=== PATIENT | female | born 1955 | race Caucasian/White ===

== ENCOUNTER → 2016-06-23 | Outpatient (CLI) | payer OTHER ==
[~2016-06-23] MED LIST: ALPR-411 PO; ASCO1CAP3 PO; ASPEC81 PO; ATOR-26 PO; CHOL1000 PO; CLOP1TAB15 PO; CLR10 PO; FLUT0.15 NAE; IMDSR30 PO; ISOS30TA3 PO; LPR25 PO; LPT40 PO; MULT-614 PO; NTRGSL/4 UT; OXYC1TAB3 PO; VITA400C15 PO; VITACAP37 PO
--- NOTE | 2016-06-23 15:36 | MAMMOGRAPHY REPORT ---
BILATERAL DIGITAL SCREENING MAMMOGRAM TOMOSYNTHESIS WITH CAD: 06/23/2016 CLINICAL HISTORY: Routine screening. Patient has no complaints. TECHNIQUE: Breast tomosynthesis in addition to standard 2D mammography was performed. Current study was also evaluated with a Computer Aided Detection (CAD) system. COMPARISON: Comparison is made to exams dated: 06/21/2015 mammogram, 05/14/2013 mammogram, 06/18/2014 mammogram, 04/17/2011 mammogram, and 04/13/2010 mammogram - [facility]. BREAST COMPOSITION: There are scattered areas of fibroglandular density in both breasts. FINDINGS: No suspicious masses, calcifications, or areas of architectural distortion are noted in e ither breast. There has been no significant interval change compared to prior exams. Small benign-a ppearing circumscribed mass in the right lower inner quadrant is stable compared to multiple prior e xams. Small mass with associated coarse calcifications in the left upper outer quadrant is also sta ble and is benign and compatible with a degenerating fibroadenoma. IMPRESSION: ACR BI-RADS CATEGORY 2: BENIGN There is no mammographic evidence of malignancy. A 1 year screening mammogram is recommended. The p atient will receive written notification of the results. Approximately 10% of breast cancers are not detected with mammography. A negative mammographic repor t should not delay biopsy if a clinically suggestive mass is present. Kate Lew M.D. ah/:06/23/2016 14:46:10 Crane Hoist Or Lift Operator: Beba BURLESON(R)(M), [facility] letter sent: Normal 1/2 BI-RADS Code: ACR BI-RADS Category 2: Benign
== END | disposition home or self-care (01) ==
LOC: C.MAMM 13:23
DX: Z12.31 Encounter for screening mammogram for malignant neoplasm of breast (principal)

== ENCOUNTER 2016-08-17 08:59 | Emergency (ER) | payer OTHER ==
[~2016-08-17] VITALS: Ht 152.4 cm; Wt 97.9 kg
[~2016-08-17 08:59] MED LIST changes: -ATOR-26 PO; -CLOP1TAB15 PO; -ISOS30TA3 PO; -NTRGSL/4 UT; -OXYC1TAB3 PO; -VITACAP37 PO
[2016-08-17 09:07] VITALS: TEMP 36.4; Ht 152.4 cm; Wt 97.9 kg
[2016-08-17] MEDS ORDERED: VITACAP37 PO (09:59)
[2016-08-17] MEDS ORDERED: ISOS30TA3 PO (10:00)
[2016-08-17] MEDS ORDERED: ATOR-26 PO (10:00)
[2016-08-17] MEDS ORDERED: CLOP1TAB15 PO (10:00)
[2016-08-17] MEDS ORDERED: NTRGSL/4 UT (10:00)
--- NOTE | 2016-08-17 10:29 | DIAGNOSTIC IMAGING REPORT ---
LEFT FOOT MIN 3 VIEWS ROUTINE CLINICAL HISTORY: Left foot pain status post trauma COMPARISON: None. DISCUSSION: There is a nondisplaced transverse fracture through the base the fifth metatarsal. Degenerative changes are present most pronounced the level the first metatarsal phalangeal joint. The bones are mildly osteopenic. There is a slight flat foot deformity. There is a small plantar calcaneal spur. IMPRESSION: Nondisplaced transverse fracture through the base the fifth metatarsal. Electronically signed by: Mele Enriquez M.D. 08/17/2016 10:27 AM Dictated Date/Time: 08/17/2016 10:27 AM
--- NOTE | 2016-08-17 10:30 | DIAGNOSTIC IMAGING REPORT ---
LEFT ANKLE 3 VIEWS HISTORY: Left foot/ ankle pain s/p fall COMPARISON: None. FINDINGS: There is no fracture or dislocation. Diffuse soft tissue swelling. Plantar and posterior calcaneal spurs. No radiopaque foreign bodies. IMPRESSION: No fractures. Electronically signed by: Quinten Vásquez M.D. 08/17/2016 10:29 AM Dictated Date/Time: 08/17/2016 10:27 AM
--- NOTE | 2016-08-17 13:01 | EMERGENCY ROOM VISIT NOTE ---
History First contact with patient: 09:16 Chief Complaint: FOOT PAIN Stated Complaint: LEFT FOOT PAIN History of Present Illness The patient is a 61 year old female who presents to the Emergency Room via private vehicle with complaints of "left foot pain". The patient states that around 10 PM yesterday evening she was at home, and was sitting in a position in which her left foot was underneath her, causing the foot to fall asleep and when she went to stand up and place weight on the foot it gave out, falling underneath her and she heard a loud crack. She states it hurts to walk and points to the left lateral aspect of the left foot is location of the pain that she rates as a 5/10. She denies any other injuries, striking her head, loss of consciousness. Review of Systems A complete 6-point Review of Systems was discussed with the patient, with pertinent positives and negatives listed in the History of Present Illness. All remaining Review of Systems questions can be considered negative unless otherwise specified. Past Medical/Surgical History Medical Problems: (1) Leg laceration (2) NSTEMI, initial episode of care Family History FH: CAD (coronary artery disease) Hypertension Social History Smoking Status: Never Smoker Drug Use: none Marital Status: Housing Status: lives with family Occupation Status: unemployed Current/Historical Medications Scheduled Ascorbic Acid (Vitamin C), 500 MG PO DAILYBB Aspirin (Aspirin EC Low Dose), 81 MG PO QAM Atorvastatin (Lipitor), 80 MG PO HS Cholecalciferol (Vitamin D3), 1,000 MG PO DAILY Clopidogrel (Plavix), 75 MG PO DAILY Isosorbide Mononitrate Ext Rel (Imdur Ext Rel), 15 MG PO QAM Metoprolol Tartrate (Lopressor), 25 MG PO BID Multiple Vitamins W/ Minerals (Centrum Silver Ultra Wome), 1 TAB PO DAILY Nitroglycerin (Nitrostat), 0.4 MG UT PRN Vitamin E (E-400), 1 TAB PO DAILY Scheduled PRN Alprazolam (Xanax), 0.5 MG PO DIRECTED PRN for Anxiety Fluticasone Propionate (Nasal) (Flonase Allergy Relief), 2 SPRAYS JB DIRECTED PRN for DRYNESS Allergies Coded Allergies: Penicillins (Verified Allergy, Intermediate, ITCHING, 08/17/16) Sulfamethoxazole w/Trimethoprim (Verified Adverse Reaction, Intermediate, GI SYMPTOMS, 08/17/16) Physical Exam Vital Signs Date Time Temp Pulse Resp B/P Pulse Ox O2 Delivery O2 Flow Rate FiO2 08/17/16 13:55 66 16 161/97 94 08/17/16 11:28 60 16 142/72 98 Room Air 08/17/16 09:07 36.4 69 18 175/95 99 Room Air Physical Exam VITAL SIGNS - Vital signs and nursing notes were reviewed. Patient is afebrile , she is hypertensive at 175/95, non-tachycardic and is saturating well on room air 99%. GENERAL -61-year-old female appearing her stated age who is in no acute distress. Communicates well with provider and answers questions appropriately. SKIN - Without rashes. No breaks in the integument over the foot. EXTREMITIES - No clubbing or peripheral cyanosis. No pretibial edema present. There is tenderness to palpation overlying the left lateral aspect of the left foot fifth metatarsal. Otherwise unremarkable examination of the left lower extremity. +5/5 strength noted in UE/LE bilaterally. She is neurovascularly intact in the left lower extremity. Medical Decision & Procedures ER Provider Diagnostic Interpretation: LEFT FOOT MIN 3 VIEWS ROUTINE CLINICAL HISTORY: Left foot pain status post trauma COMPARISON: None. DISCUSSION: There is a nondisplaced transverse fracture through the base the fifth metatarsal. Degenerative changes are present most pronounced the level the first metatarsal phalangeal joint. The bones are mildly osteopenic. There is a slight flat foot deformity. There is a small plantar calcaneal spur. IMPRESSION: Nondisplaced transverse fracture through the base the fifth metatarsal. Electronically signed by: Mele Enriquez M.D. 08/17/2016 10:27 AM Dictated Date/Time: 08/17/2016 10:27 AM LEFT ANKLE 3 VIEWS HISTORY: Left foot/ ankle pain s/p fall COMPARISON: None. FINDINGS: There is no fracture or dislocation. Diffuse soft tissue swelling. Plantar and posterior calcaneal spurs. No radiopaque foreign bodies. IMPRESSION: No fractures. Electronically signed by: Quinten Vásquez M.D. 08/17/2016 10:29 AM Dictated Date/Time: 08/17/2016 10:27 AM Medical Decision Patient was seen and evaluated as above. After obtaining a thorough history and physical examination was evident the patient may have fractured the left fifth metatarsal. Radiographs were obtained of this region as well as the ankle. She did not want anything for pain. She was provided ice. Radiograph reveals fracture of the eye feels concerning for a Gilmore type II. I did discuss this with my attending and I also placed a call to the on-call orthopedic surgeon. I spoke with Joe Goyalhilaria, who indicated that he would calm and back after discussing this with his attendings. I was called back and spoke with him at 12:45 PM, and he indicated that after speaking with some of the orthopedic surgeons it appears the patient is experiencing what is likely a dancer's fracture. He recommended a posterior Ortho-Glass in neutral position for splinting. He also encouraged the patient to call [place] [facility] office to schedule follow-up. I thanked him for the time. I do believe this is appropriate, therefore the patient was splinted with this. She was reassessed post splinting and noted to be feeling well. No evidence of restriction. The patient was educated upon management, and was initially given crutches however notes that she feels as though she may be unstable and has a walker at home that she may be used. I do believe this is appropriate. She was educated upon management, educated upon the need for follow-up with orthopedics, was provided the number to call, had questions answered prior to discharge, was educated upon worrisome symptoms in which to return and was discharged home in good condition. Because of the potential pain that she may be expressing this evening I did send a prescription to her pharmacy that she may fill if the pain becomes increased. In the evaluation and treatment of this patient, the following differential diagnoses were considered: Lisfranc Fracture, Talus Fracture, Tarsal Fracture, gilmore fracture, dancers fracture, Foot Sprain. Impression Primary Impression: Fracture of 5th metatarsal Departure Information Dispostion Home / Self-Care Condition GOOD Prescriptions Oxycodone Ir (Roxicodone Ir) 5 Mg Tab 1-2 TAB PO Q4H Y for Pain, #15 TAB For Initial Treatment Prov: Juan Luis Shelby PA-C 08/18/16 Referrals Maritza Garg.Ifrah PA-C (PCP) Yosef Roblero D.O. [place], [place], M.D. Patient Instructions [facility] Additional Instructions You have been treated in the Emergency Department for a foot fracture of the 5th metatarsal of the left foot. You have been prescribed Oxy IR to be used for pain control. This is a narcotic medication. You cannot drive or consume alcohol while on this medicine. This medicine should only be used for pain that cannot be controlled with over-the- counter pain medicines. For pain control, you can use the following [id number] medicines (if >12 yo): - Regular strength (325mg/tab) Tylenol (acetaminophen) 2 tabs every 4-6 hours as needed. Do not exceed 12 tablets in a 24 hour period. Avoid taking more than 4 grams (4000 mg) of Tylenol per day. This includes any other sources of acetaminophen you may take on a regular basis. - Regular strength (200 mg/tab) Advil (ibuprofen) 1-2 tabs every 4-6 hours as needed. Do not exceed a dose of 3200 mg per day. If this is a recent injury (<24 hrs), ice can be applied to the area of pain for the first 3 days to help decrease pain and inflammation. You have been provided the number for an Orthopaedic Surgeon. You should call this number as soon as possible to establish a follow-up visit from today's Emergency Department visit. Keep the ankle brace/splint in place until cleared by Orthopedics. Use the walker you have to keep ALL weight off of the ankle until weight bearing is tolerable. Return to the Emergency Department if your current symptoms worsen despite treatment course outlined above, or if you develop any of the following symptoms : intractable pain despite aforementioned treatment course or new onset of numbness or tingling of the foot. Problem Qualifiers Primary Impression: Fracture of 5th metatarsal Encounter type: initial encounter Fracture type: closed
[2016-08-17 13:55] VITALS: BP 161/97; PULSE 66; O2SAT 94
[2016-08-18] MEDS ORDERED: OXYC1TAB3 PO (09:23)
== END 2016-08-17 13:55 | disposition home or self-care (01) ==
LOC: C.EDB 09:00
DX: S92.355A Nondisplaced fracture of fifth metatarsal bone, left foot, initial encounter for closed fracture (principal); W18.30XA Fall on same level, unspecified, initial encounter; I25.2 Old myocardial infarction; Z82.49 Family history of ischemic heart disease and other diseases of the circulatory system; Z79.02 Long term (current) use of antithrombotics/antiplatelets; Z79.82 Long term (current) use of aspirin

== ENCOUNTER → 2016-10-04 | Outpatient (CLI) | payer OTHER ==
[~2016-10-04] MED LIST changes: +ATOR-26 PO; +CLOP1TAB15 PO; -CLR10 PO; -IMDSR30 PO; +ISOS30TA3 PO; -LPT40 PO; +NTRGSL/4 UT; +OXYC1TAB3 PO; -VITA400C15 PO; +VITACAP37 PO
[2016-10-04 14:06] LABS: ALB/GLOB RATIO 1.1 (0.9-2); ALKALINE PHOSPHATASE 93 U/L (45-117); ALT/SGPT 72 U/L (12-78); AST/SGOT 26 U/L (15-37); BLOOD UREA NITROGEN 14 mg/dl (7-18); BUN/CREATININE RATIO 17.5 (10-20); CALCIUM 9.2 mg/dl (8.5-10.1); CARBON DIOXIDE 31 mmol/L (21-32); CHLORIDE 108 mmol/L (98-107); CREATININE 0.83 mg/dl (0.60-1.20); GLUCOSE 99 mg/dl (70-99); HDL CHOLESTEROL 53 mg/dl; SODIUM 144 mmol/L (136-145)
[2016-10-04 14:09] LABS: CHOLESTEROL 132 mg/dl (0-200); CHOLESTEROL/HDL RATIO 2.5; LDL CHOLESTEROL CALCULATED 61 mg/dl; TRIGLYCERIDES 92 mg/dl (0-150); VERY LOW DENSITY LIPOPROT CALC 18 mg/dl
== END ==
LOC: C.LABPVFM 07:45
PROVIDERS: ATTEND Internal Medicine Cardiovascular Disease
DX: I25.10 Atherosclerotic heart disease of native coronary artery without angina pectoris (principal); E78.5 Hyperlipidemia, unspecified

== ENCOUNTER → 2017-06-25 | Outpatient (CLI) | payer OTHER ==
[~2017-06-25] MED LIST changes: -OXYC1TAB3 PO
--- NOTE | 2017-06-25 15:52 | MAMMOGRAPHY REPORT ---
BILATERAL DIGITAL SCREENING MAMMOGRAM TOMOSYNTHESIS WITH CAD: 06/25/2017 CLINICAL HISTORY: Routine screening. Patient has no complaints. TECHNIQUE: Breast tomosynthesis in addition to standard 2D mammography was performed. Current study was also evaluated with a Computer Aided Detection (CAD) system. COMPARISON: Comparison is made to exams dated: 06/23/2016 mammogram, 06/21/2015 mammogram, 06/18/2014 m ammogram, 05/14/2013 mammogram, 04/17/2011 mammogram, and 04/13/2010 mammogram - [facility]. BREAST COMPOSITION: There are scattered areas of fibroglandular density in both breasts. FINDINGS: No suspicious masses, calcifications, or areas of architectural distortion are noted in ei ther breast. There has been no significant interval change compared to prior exams. Circumscribed be nign-appearing mass in the right lower inner quadrant anteriorly is stable dating back to at least 2007 exam. IMPRESSION: ACR BI-RADS CATEGORY 2: BENIGN There is no mammographic evidence of malignancy. A 1 year screening mammogram is recommended. The pa tient will receive written notification of the results. Approximately 10% of breast cancers are not detected with mammography. A negative mammographic report should not delay biopsy if a clinically suggestive mass is present. Kate Lew M.D. /:06/25/2017 14:10:02 Clerical Adjuster: Mila Moreira, [facility] letter sent: Normal 1/2 BI-RADS Code: ACR BI-RADS Category 2: Benign
== END | disposition home or self-care (01) ==
LOC: C.MAMM 13:27
PROVIDERS: ATTEND Physician Assistant
DX: Z12.31 Encounter for screening mammogram for malignant neoplasm of breast (principal)

== ENCOUNTER → 2017-07-13 | Outpatient (CLI) | payer OTHER ==
[2017-07-13 12:43] LABS: HEMATOCRIT 41.8 % (37-47); HEMOGLOBIN 13.9 g/dL (12.0-16.0); MEAN CELL VOLUME 98.8 fL (80-100); MEAN CORPUSCULAR HEMOGLOBIN 32.9 pg (25-34); MEAN CORPUSCULAR HGB CONC 33.3 g/dl (32-36); MEAN PLATELET VOLUME 10.7 fL (7.4-10.4); PLATELET COUNT 245 K/uL (130-400); RED CELL DISTRIBUTION WIDTH CV 14.1 % (11.5-14.5); RED CELL DISTRIBUTION WIDTH SD 50.1 fL (36.4-46.3)
[2017-07-13 12:51] LABS: ALBUMIN 3.4 gm/dl (3.4-5.0); ALT/SGPT 73 U/L (12-78); AST/SGOT 36 U/L (15-37); BLOOD UREA NITROGEN 20 mg/dl (7-18); CALCIUM 8.7 mg/dl (8.5-10.1); CARBON DIOXIDE 30 mmol/L (21-32); CREATININE 0.89 mg/dl (0.60-1.20); GLUCOSE 98 mg/dl (70-99); POTASSIUM 3.9 mmol/L (3.5-5.1); SODIUM 140 mmol/L (136-145)
[2017-07-13 12:59] LABS: ALKALINE PHOSPHATASE 92 U/L (45-117); CHOLESTEROL 105 mg/dl (0-200); LDL CHOLESTEROL CALCULATED 43 mg/dl; TOTAL PROTEIN 6.8 gm/dl (6.4-8.2)
== END | disposition home or self-care (01) ==
LOC: C.LABPVFM 07:53
PROVIDERS: ATTEND Physician Assistant
DX: E78.5 Hyperlipidemia, unspecified (principal)

== ENCOUNTER → 2017-10-09 | Outpatient (CLI) | payer OTHER ==
[~2017-10-09] MED LIST changes: -ASPEC81 PO; +ASPI-320 PO
[2017-10-09 14:47] LABS: ALBUMIN 3.3 gm/dl (3.4-5.0); ALT/SGPT 66 U/L (12-78); AST/SGOT 33 U/L (15-37); BLOOD UREA NITROGEN 16 mg/dl (7-18); CALCIUM 8.4 mg/dl (8.5-10.1); CARBON DIOXIDE 30 mmol/L (21-32); CREATININE 0.81 mg/dl (0.60-1.20); GLUCOSE 97 mg/dl (70-99); POTASSIUM 4.1 mmol/L (3.5-5.1); SODIUM 142 mmol/L (136-145)
[2017-10-09 14:50] LABS: ALKALINE PHOSPHATASE 92 U/L (45-117); CHOLESTEROL 110 mg/dl (0-200); LDL CHOLESTEROL CALCULATED 46 mg/dl; TOTAL PROTEIN 6.9 gm/dl (6.4-8.2)
== END | disposition home or self-care (01) ==
LOC: C.LABPVFM 08:05
PROVIDERS: ATTEND Internal Medicine Cardiovascular Disease
DX: I25.10 Atherosclerotic heart disease of native coronary artery without angina pectoris (principal)

== ENCOUNTER 2023-08-04 11:02 | Inpatient (IN) ==
--- OUTSIDE RECORDS SUMMARY | 2023-08-04 11:15 | External Medical Summary | Summary of Care ---
Author Name Unknown Organization [facility] Address [address] [place] [address] Phone [phone] Care Team Providers Care Alemite Operator Name Role Phone Dioni Akers PA-C Primary Care Provide r Reason for Visit * Reason Comments Laceration LLE * Auth/Cert Specialty Diagnoses / Procedures Referred By Contac t Referred To Contact Referral ID Status Reason Start Date Expiration Date Visits Re quested Visits Authorized [id number] Encounter Details Date Type Department Care Team (Late st Contact Info) Description 07/20/2023 12:54 PM EST - 07/20/2023 3:32 PM EST Emergency [facility] Emergency Department ([facility]) [address], [place] [id number] Valentin Hernandez MD [address], [place] [id number] Fall, initial encounter (Primary Dx); Laceration of left lower extremity, initial encounter Discharge Disposition: Home - Self Care Allergies Active Allergy Reactions Criticality Noted Date Comments Sulfamethoxazole-Trimethoprim Nausea/vomiting Medium 0 10/23/2015 Penicillins Hives High 10/23/2015 documented as of this encounter (statuses as of 07/21/2023) Medications Medication Sig Dispensed Refills Start Date End Date Status Ascorbic Acid (VITAMIN C) 1000 MG Tablet Take 1 Tablet by mouth in the morning. 0 Active Cholecalciferol (VITAMIN D3) 1000 UNITS CAPS Take by mouth. 0 Active fluticasone (FLONASE) 50 MCG/ACT nasal sprayIndications:A llergic rhinitis, unspecified allergic rhinitis type Administer 2 Sprays into each nostril daily. 1 Bottle 11 10/23/2015 Active ALPRAZolam (XANAX) 0.5 MG Tablet Take 1 Tablet by mouth as needed. 0 12/31/2015 Active loratadine (CLARITIN) 10 MG Tablet Take 1 Tablet by mouth in the morning. 0 Active atorvaSTATin (LIPITOR) 80 MG Tablet Take 1 Tab by mouth every evening. 30 Tab 6 01/06/2016 Active Aspirin 81 MG TabletIndications: takes every other day. Take 1 Tab by mouth daily. Indications: takes every other day. 34 Tab 6 01/06/2016 Active Additional Information Patient taking differently:81 mg Oral Daily(AM),(No indications reported), Reported on 03/21/2023 nitroglycerin (NITROSTAT) 0.[address] 1 Tab under the tongue every 5 minutes as needed for Pain, Chest. Up to 3 in 15 minutes. 25 Tab 3 04/25/2018 Active furosemide (LASIX) 20 MG Tablet Take 1 Tablet by mouth as needed. 0 10/07/2018 Active famotidine (PEPCID) 20 MG Tablet Take 1 Tablet by mouth in the morning and 1 Tablet before bedtime. 0 04/18/2019 Active Zinc 50 MG Oral Tablet Take 1 Tablet by mouth in the morning. 0 Active One Daily 27-0.8 MG Oral Tablet Take by mouth. 0 Active Apple Cider Vinegar 500 MG Oral Tablet Take by mouth. 0 Active Metoprolol Succinate ER 50 MG Oral Tablet Extended Release 24 Hour (toPROL XL) Take 1 Tablet by mouth in the morning. 100 Tablet 5 03/21/2023 Active Cephalexin 500 MG Oral Capsule (Keflex) Take 1 Capsule by mouth in the morning and 1 Capsule at noon and 1 Capsule in the evening and 1 Capsule before bedtime. Do all this for 7 days. 28 Capsule 0 07/20/2023 07/27/2023 Active documented as of this encounter (statuses as of 07/21/2023) Active Problems Problem Noted Date Diagnosed Date Coronary artery disease invo lving [place] coronary artery of [place] heart without angina pectoris 01/06/2016 Dyslipidemia, goal LDL below 70 01/06/2016 Non morbid obesity due to excess calories 2015 documented as of this encounter (statuses as of 07/21/2023) Immunizations Name Administration Dates Next Due TDAP (age 10 and older)(Boostrix) 07/20/2023 documented as of this encounter Social History Tobacco Use Types Packs/Day Years Used Date Smoking Tobacco: Never Smokeless Tobacco: Never Alcohol Use Standard Drinks/Week Comments No 0 (1 standard drink = 0.6 oz pur e alcohol) Sex and Gender Information Value Date Recorded Sex Assigned at Not on file Gender Identity Not on file Sexual Orientation Not on file Job Start Date Occupation Industry Not on file Not on file Not on file documented as of this encounter Last Filed Vital Signs Vital Sign Reading Time Taken Comments Blood Pressure 154/109 07/20/2023 3:00 PM EST Pulse 82 07/20/2023 3:00 PM EST Temperature 37.1 C (98.8 F) 07/20/2023 3:00 PM ES T Respiratory Rate 20 07/20/2023 3:00 PM EST Oxygen Saturation 98% 07/20/2023 3:00 PM EST Inhaled Oxygen Concentration - - Weight - - Height - - Body Mass Index - - documented in this encounter Discharge Instructions * Discharge Instructions* Franco Tristan DO - 07/20/2023 2:58 PM EST You were seen and evaluated in the emergency department after your fall. Laceration was repaired inyou have been prescribed Keflex to be taken 4 times daily over the next week. Please continue to monitor your wound and Change your dressing daily. Please return to the emergency department for any redness, swelling or drainage and follow-up with your PCP in the next 7-10 days for removal of your sutures. documented in this encounter ED Notes * Pam Liu RN - 07/20/2023 1:06 PM EST Pt arrived with a large laceration on her LLE. Stated she was "getting up into the truck and missedthe running board". Having 7/10 pain. Bleeding controled. documented in this encounter Miscellaneous Notes * Pt Handout (on AVS) - Franco Tristan, - 07/20/2023 2:58 PM EST Images from the original note were not included. [id number] Laceration, All Closures A laceration is a cut through the skin. This will usually need stitches or marta if it's deep. Minor cuts may be treated with a surgical tape closure or skin glue. Home care Your healthcare provider may prescribe an antibiotic. This is to help prevent infection. Follow all instructions for taking this medicine. Take the medicine every day until it's gone, or you are told to stop. You should not have any left over. The provider may prescribe medicines for pain. If no pain medicines were prescribed, you can [id number] pain medicines. Follow instructions for taking any pain medicines. Talk with your provider before using these medicines if you have chronic liver or kidney disease, or ever had a stomach ulcer or digestive bleeding. Follow the provider?s instructions on how to care for the cut. Keep the wound clean and dry. Don't get the wound wet until you are told it's OK to do so. If the area gets wet, gently pat it dry with a clean cloth. Replace the wet bandage with a dry one. If a bandage was applied and it becomes wet or dirty, replace it. Otherwise, leave it in place for the first 24 hours. Caring for stitches or marta: Once you no longer need to keep them dry, clean the wound daily.First remove the bandage. Then wash the area gently with soap and clean running water, or as directed by the provider. Use a wet cotton swab to loosen and remove any blood or crust that forms. After cleaning, apply a thin layer of antibiotic ointment if advised. Then put on a new bandage unless youare told not to. Caring for skin glue: Don?t apply liquid, ointment, or cream on the wound while the glue is in place. Don't do activities that cause heavy sweating. Protect the wound from sunlight. Don't scratch,rub, or pick at the adhesive film. Don't place tape directly over the film. The glue should peel off naturally in 5 to 10 days. Caring for surgical tape: Keep the area dry. If it gets wet, blot it dry with a clean towel. Surgical tape often falls off in 7 to 10 days. If it has not fallen off after 10 days, you can take it off yourself. Put mineral oil or petroleum jelly on a cotton ball and gently rub the tape until it'sremoved. Once you can get the wound wet, you may shower as normal. Don't soak the wound in water (no tub baths or swimming). Even with correct treatment, a wound infection may sometimes occur. Check the wound daily for signs of infection listed below. Scalp wounds Follow your healthcare provider's specific instructions on showering. During the first 2 days, you may carefully rinse your hair in the shower to remove blood, glass, or dirt particles. After 2 days,you may shower and shampoo your hair normally. Don't soak your scalp in the tub or go swimming until the stitches or marta have been removed. Talk with your healthcare provider before applying any antibiotic ointment to the wound. Mouth wounds Eat soft foods to reduce pain. If the cut is inside your mouth, clean by rinsing after each meal and at bedtime with a mixture of equal parts water and hydrogen peroxide (don't swallow!). Or you can use a cotton swab to directly apply hydrogen peroxide onto the cut. You may also be prescribed a chlorhexidine solution to rinse with. Mouth wounds can be painful when eating. You may use an fhxr-lqb-uioedir local numbing solution for pain relief. If this isn't available, you may use any numbing solution intended for teething babies. You may apply this directly to the sores with a cotton-tip swab or with your clean finger. Follow-up care Follow up with your healthcare provider as advised. Ask your provider how long stitches should be left in place. Be sure to return for stitch removal as directed. If dissolving stitches were used in the mouth, these should fall out or dissolve without the need for removal. If tape closures were used, remove them yourself when your provider advises if they haven't fallen off on their own. If skin glue was used, the film will wear off by itself. Generally, you should keep healing wounds out of direct sunlight for the first couple of months to try to lessen scarring. When to get medical advice Call your healthcare provider right away if any of these occur: Signs of infection, including increasing pain in the wound, increasing wound redness or swelling, or pus or bad odor coming from the wound Fever of 100.4F (38.C) or higher, or as advised by your provider Chills Stitches or marta come apart or fall out, or surgical tape falls off before 7 days and the wound appears to be reopening Wound edges reopen Wound changes colors Numbness around the wound after any numbing medicine should have worn off Decreased movement around the injured area Call 911 Call 911 if you can't control the wound bleeding with direct pressure. Last Reviewed Date: 09/25/202119990315-8359 [employer]. All rights reserved. This information is not intended as a substitute for professional medical care. Always follow your healthcare professional's instructions. documented in this encounter Plan of Treatment Pending Results Name Type Priority Associated Diagnoses Date /Time Laceration Repair Procedure Report Routine 0 07/20/2023 3:03 PM EST Health Maintenance Due Date Last Done Comments COVID-19 Vaccine (#1) 1962 Depression Screening 1969 Hepatitis C Screening 1975 Mammogram 1997 Cologuard 2002 Colonoscopy 2002 Colorectal Cancer Screening 2002 Fecal Occult Blood Test 2002 Sigmoidoscopy 2002 Zoster Vaccines (1 of 2) 2007 DXA Scan 2022 Pneumococcal Vaccine: 65+ Years (1 of 1 - PCV) 2022 Influenza Vaccine (FLU shot) (#1) 2023 Diabetes Screening 10/12/2023 10/11/2020, 1 , 10/22/2019, Additional history exists DTaP,Tdap,and Td Vaccines (2 - Td or Tdap) 07/20/2033 07/20/2023 Pap Smear Discontinued 03/07/2016 GARDASIL-HPV IMMUNIZATION SERIES Aged Out No longer eligible based on patient's age to complete this topic Hepatitis B Aged Out No longer eligi ble based on patient's age to complete this topic MENINGOCOCCAL (MENACTRA/MENVEO) Aged Out No longer eligible based on patient's age to complete this topic documented as of this encounter Medical Devices Not on filedocumented as of this encounter Procedures Procedure Name Priority Date/Time Associated Diagnosis Comments LACERATION REPAIR Routine 07/20/2023 3:03 PM EST documented in this encounter Visit Diagnoses Diagnosis Fall, initial encounter- Primary Laceration of left lower extremity, initial encounter documented in this encounter Administered Medications Inactive Administered Medications - up to 3 most recent administrations Medication Order MAR Action Action Date Dose Rate Site Cephalexin (Keflex) cap 500 mg 500 mg, Oral, ONCE, On Sun07/20/23 at 1400, For 1 dose Given 07/20/2023 3:11 PM EST 500 mg lidocaine 1 % inj 100 mg 100 mg (10 mL), Subcutaneous, ONCE, On Sun07/20/23 at 1400, For 1 dose Given By 07/20/2023 3:10 PM EST 100 mg Calf Left lidocaine 1 % inj 100 mg 100 mg (10 mL), Subcutaneous, ONCE, On Sun07/20/23 at 1400, For 1 dose Given By 07/20/2023 3:09 PM EST 100 mg Calf Left documented in this encounter Active and Recently Administered Medications Times are shown in EST. Scheduled Medication Order 07/18/2023 07/19/2023 07/20/2023 Cephalexin (Keflex) cap 500 mg (COMPLETED) 500 mg, Oral, ONCE, On Sun07/20/23 at 1400, For 1 dose 1511 (Given - Provid er: Pam Liu RN) lidocaine 1 % inj 100 mg (COMPLETED) 100 mg (10 mL), Subcutaneous, ONCE, On Sun07/20/23 at 1400, For 1 dose 1510 (Given By - Pro vider: Pam Liu RN - Comment: Dr. Jean) lidocaine 1 % inj 100 mg (COMPLETED) 100 mg (10 mL), Subcutaneous, ONCE, On Sun07/20/23 at 1400, For 1 dose 1509 (Given By - Pro vider: Pam Liu RN - Comment: Dr. Tristan) documented in this encounter Care Teams Alemite Operator Relationship Specialty Start Date End Date Dioni Akers PA-C PCP - General Physician [employer] Lead 04/25/18 documented as of this encounter
--- OUTSIDE RECORDS SUMMARY | 2023-08-04 11:15 | External Medical Summary | Summary of Care ---
Author Name Unknown Organization [facility] Address [address] [place] [address] Phone [phone] Care Team Providers Care Trench Shovel Operator Name Role Phone Dioni Akers PARickey Primary Care Provide r Reason for Visit * Reason Comments Outdoor Adventure Instructor New Encounter Details Date Type Department Care Team (Late st Contact Info) Description 07/13/2023 3:45 PM EST Office Visit Gynecology/Obstetric [facility] [address] [place] [address] Rafiq Guevara MD [address] [place] [address] Intramural leiomyoma of uterus* Allergies Active Allergy Reactions Criticality Noted Date Comments Sulfamethoxazole-Trimethoprim Nausea/vomiting Medium 0 10/23/2015 Penicillins Hives High 10/23/2015 documented as of this encounter (statuses as of 07/13/2023) Medications Medication Sig Dispensed Refills Start Date End Date Status Ascorbic Acid (VITAMIN C) 1000 MG Tablet Take 1 Tablet by mouth in the morning. 0 Active Cholecalciferol (VITAMIN D3) 1000 UNITS CAPS Take by mouth. 0 Active fluticasone (FLONASE) 50 MCG/ACT nasal sprayIndications:Al lergic rhinitis, unspecified allergic rhinitis type Administer 2 [...] Tab 6 01/06/2016 Active Aspirin 81 MG TabletIndications:t akes every other day. Take 1 Tab by [...] MG Oral Tablet Take by mouth. 0 Ac tive Metoprolol Succinate ER 50 MG Oral Tablet Extended Release 24 Hour (toPROL XL) Take 1 Tablet by mouth in the morning. 100 Tablet 5 03/21/2023 Active documented as of this encounter (statuses as of 07/13/2023) Active Problems Problem Noted Date Diagnosed Date Coronary artery disease invo lving [place] coronary artery of [place] heart without angina pectoris 01/06/2016 Dyslipidemia, goal LDL below 70 01/06/2016 Non morbid obesity due to excess calories 2015 documented as of this encounter (statuses as of 07/13/2023) Immunizations No known immunizationsdocumented as of this encounter Social History Tobacco [...] Sign Reading Time Taken Comments Blood Pressure - - Pulse - - Temperature - - Respiratory Rate - - Oxygen Saturation - - Inhaled Oxygen Concentration - - Weight 112.5 kg (248 lb) 07/13/2023 3:46 PM EST Height 152.4 cm (5') 07/13/2023 3:46 PM EST Body Mass Index 48.43 07/13/2023 3:46 PM EST documented in this encounter Progress Notes * Rafiq Guevara MD - 07/13/2023 4:03 PM EST Patient Name: Mayra Turner Patient CC:f/u from ER Context: (HPI) 68 year old G seen in the ER on 122 24 for right-sided lower pelvic pain radiating to the back. In the ER she had radiologic studies that showed right-sided renal angiomyolipoma measured 4 centimeters as well as a 12 week size fibroid uterus. Patient after that has seen Urology. Urology has asked patient to follow up with coat fitter. Patient reports her pain was sudden was a 1 time episode she continues to have lingering pain in the back but mostly on her right side. She denies any postmenopausal bleeding. location Quality: Severity: Duration: Worsening/improving sympt: Pain level/ Scale: Timing: Associated symptoms: Past Medical Hx: Past Medical History: Diagnosis Date [place] (myocardial infarction) (HCC) Past Surgical Hx: Past Surgical History: Procedure Laterality Date PLACE CATHETER IN ARTERY REMOVE GALLBLADDER Social Hx: Social History Socioeconomic History Marital status: Spouse name: Cornel Zepeda Occupational History Occupation: Homemaker Tobacco Use Smoking status: Never Smokeless tobacco: Never Vaping Use Vaping Use: Never used Substance and Sexual Activity Alcohol use: No Drug use: No Sexual activity: Yes Allergy: Review of patient's allergies indicates: Allergen Reactions Penicillins Hives Bactrim Ds [Sulfamethoxazole-Trimethoprim] Nausea/vomiting Family HX: Family History Problem Relation Age of Onset Cancer Mother colon Cancer Sister breast ca ROS: REVIEW OF SYSTEMS CONSTITUTIONAL ROS: No change in weight, No weakness, No fatigue and No fevers, sweats, or chills PULMONARY ROS: No cough, sputum, or hemoptysis, No wheezing, No shortness or breath and No recent change in breathing CARDIOVASCULAR ROS: No chest pain, No shortness of breath, No dyspnea on exertion, No orthopnea, Noparoxysmal nocturnal dyspnea, No edema, No palpitations and No syncope BREAST ROS: No new breast lumps or masses, No severe breast pain, No nipple discharge, No recent change in shape/color and Performs self breast exam ENDOCRINE ROS; No change in wt gain, hair loss or bowel habits, malaise or fatigue. No polyuria, polyphagia polydipsia GASTROINTESTINAL ROS: No abdominal pain, No change in bowel habits, No significant heartburn, No significant change in appetite, No nausea, vomiting, diarrhea, or constipation, No hematemesis, No blood in stools or black tarry stools, No abdominal bloating or early satiety and No dysphagia GENITO-URINARY FEMALE ROS: No STDs, No dysuria, No frequency, No incontinence, No urgency and No vaginal discharge and + for irreg menses. ALL OTHERS REVIEWED AND ALL OTHERS NEGATIVE LABS: PHYSICAL EXAMINATION Well developed. Well nourishes white female in no acute distress Vital signs Ht 1.524 m (5') | Wt 112.5 kg (248 lb) | LMP 10/19/2015 (Exact Date) | BMI 48.43 kg/m | BSA 2.18 m HEENT : WNL LUNG: CTA bilat. No wheezes, crackles, or rales HEART; S-1, S-2; Regular ,rythm and rate . No murmurs GI; + Bowel Sounds. Non-tender. Non-distended.No guarding,rebound or costovertebral angle tenderness. No Hernias : Pt is white female abdominal pelvic exam is limited because of body habitus. Neurologic: grossly intact Extremity: No Cyanoses, clubbing or edema. No lesions on either extremeties Psych: Alert, awake and oriented X 3. Normal gait A/P Follow-up from ER on 06/18/2023. 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 Patient has seen Urology and Urology has sent patient to coat fitter for evaluation. Discussed MRI findings with patient I have offered patient a hysterectomy with bilateral salpingo-oophorectomy. I have made patient aware that I do not know if the cause of her pain is from her Mirena pathology. Patient has comorbidities including elevated BMI. She is also has previous OH. all of this has been discussed with patient as part of her postop and possibly procedure complications. Plan Patient is sent for pelvic ultrasound. Patient is with her spouse and will return after ultrasound so they can let me know how to proceed with a want to do expectant management all surgery. Intramural leiomyoma of uterus (Primary) I spent a total of 30-39 minutes (exact time 35 mins) on the date of service in preparation, delivery, and documentation of the care provided to Mayra Turner excluding any time spent in the performance of separately billed services. * Rafiq Guevara MD - 07/13/2023 4:02 PM EST error documented in this encounter Nursing Notes * Miriam Roberts LPN - 07/13/2023 3:40 PM EST Pt was in er for right sided pelvic pain documented in this encounter Plan of Treatment Upcoming Encounters Date Type Department Care Team (Late st Contact Info) Description 07/18/2023 2:00 PM EST Imaging Radiology [address] [address] Scheduled Orders Name Type Priority Associated Diagnoses Orde r Schedule US PELVIS TRANS-VAGINAL NON-OB Medical Imaging Routine Intramural leiomyoma of uterus Expected: 07/14/2023, Expires: 08/10/2024 Health Maintenance Due Date Last Done Comments COVID-19 Vaccine (#1) 1962 Depression Screening 1969 Hepatitis C Screening 1975 DTaP,Tdap,and Td Vaccines (1 - Tdap) 02/26/1976 Mammogram 1997 Cologuard 2002 Colonoscopy 2002 Colorectal Cancer Screening 2002 Fecal Occult Blood Test 2002 Sigmoidoscopy 2002 Zoster Vaccines (1 of 2) 2007 DXA Scan 2022 Pneumococcal Vaccine: 65+ Years (1 of 1 - PCV) 2022 Influenza Vaccine (FLU shot) (#1) 2023 Diabetes Screening 10/12/2023 10/11/2020, 1 , 10/22/2019, Additional history exists Pap Smear Discontinued 03/07/2016 GARDASIL-HPV IMMUNIZATION SERIES [...] Not on filedocumented as of this encounter Visit Diagnoses Diagnosis Intramural leiomyoma of uterus- Primary documented in this encounter Care Teams Trench Shovel Operator Relationship Specialty Start Date End Date Dioni Akers PA-C PCP - General Physician Drug Worker 04/25/18 documented as of this encounter"
[2023-08-04] MEDS ORDERED: VANCOMYCIN CONSULT ACTIVE PRN (11:54)
--- NOTE | 2023-08-04 12:05 | Emergency Department Note ---
ED Visit Note Physician Evaluation Note: I agree with assessment and plan of Mary DYENP. I was consulted by the Advanced Practice Provider. I personally made/approved the management plan and take responsibility for the patient management. I performed a substantive portion of the visit. This includes the aspects of: I personally evaluated patient. 2 weeks ago she scraped her leg on her truck. The wound was repaired at [facility]. She has been on antibiotics x 2 now. She splinted open again a few days ago again on the track. Now the skin is turning black and she is having increasing pain. On examination she has some eschar of the skin that is overlying the wound. Surrounding mild erythema. She has no surrounding crepitus or tenderness palpation. X-rays with subcu air in the area of wound. CT shows subcu air and area of wound there is no tracking air up leg or into musculature otherwise. Her laboratory workup is unremarkable. By examination she does not have necrotizing fasciitis. I did have discussion with Dr. Castro of general surgery who evaluated patient and agrees this is not consistent with necrotizing fasciitis. They will take her to the OR tomorrow for washout. Given complex medical history she will be admitted to medicine service. Based on laboratory findings and exam she is not septic at this time. -I independently interpreted the following studies: CT of the left lower leg as per my informal interpretation reveals some air throughout the bed of the wound however there is no tracking air and only mild surrounding erythema. -I consulted with who recommended: General surgery will take to the OR for washout tomorrow and wound debridement. Hospitalist service will bring in for further evaluation. left lower leg black wound
[2023-08-04] MEDS: cefTRIAXone SODIUM 2,000 MG/50 ML BAG IV STA (12:09)
[2023-08-04 12:18] LABS: Basophils # (auto) 0.05 K/uL (0.00-0.20); Basophils % (auto) 0.6 %; Eosinophils # (auto) 0.94 K/uL (0.00-0.50); Eosinophils % (auto) 11.2 %; Hemoglobin 12.5 g/dl (12.0-16.0); Immature Granulocytes # (auto) 0.03 K/uL (0.01-0.20); Immature Granulocytes % (auto) 0.4 %; Lymphocytes # (auto) 0.77 K/uL (1.20-3.40); Lymphocytes % (auto) 9.2 %; Mean Corpuscular Hemoglobin 32.8 pg (25.0-34.0); Mean Corpuscular Hgb Conc 32.9 g/dL (32.0-36.0); Mean Corpuscular Volume 99.7 fL (80.0-100.0); Mean Platelet Volume 9.7 fL (9.4-12.4); Monocytes # (auto) 0.89 K/uL (0.11-0.59); Monocytes % (auto) 10.6 %; Neutrophils # (auto) 5.69 K/uL (1.40-6.50); Platelet Count 358 K/uL (130-400); RDW Coefficient of Variation 13.8 % (11.5-14.5); RDW Standard Deviation 50.8 fL (36.4-46.3); Red Blood Count 3.81 M/uL (4.20-5.40); White Blood Count 8.37 K/ul (4.8-10.8)
--- NOTE | 2023-08-04 12:18 | Emergency Department Note ---
Impression & Plan Traumatic open wound of lower leg with infection ED Provider Note CHIEF COMPLAINT: Left leg infection HISTORY OF PRESENTING ILLNESS: This is a 68-year-old female who presents to the emergency department by private vehicle with complaint of left leg swelling, redness, and pain that has been increasing for the past 2 days. Patient reports that she injured the left leg with a large laceration on 07/20, she went to [facility] in [place] and had the wound repaired and was sent home that day. She was sent home on a course of Keflex. She reports that she saw her PCP 2 days ago and had the stitches removed from the wound, at that time her provider thought she might have some pus drainage and sent a wound culture. She was started on a second course of Keflex 2 days ago. The patient states yesterday that she noticed some increased redness and pain in the leg which has continued to get worse today. She has not had any fevers or chills. She states she is otherwise feeling well. She has not had any nausea or vomiting. She denies any chest pain, chest tightness, shortness of breath, dizziness, syncope, cough or hemoptysis. She takes a baby aspirin and no other blood thinners. She states that she is not diabetic. REVIEW OF SYSTEMS: A complete 10 point review of systems was reviewed with the patient with pertinent positives and negatives as per history of present illness. All else were negative. PAST MEDICAL HISTORY: Hypertension, hyperlipidemia, CAD--history of cardiac arrest and catheterization with angioplasty, peripheral vascular disease, cholecystectomy SOCIAL HISTORY: Lives at home with family, smoker ALLERGIES: Reviewed in chart and with the patient PHYSICAL EXAM: CONSTITUTIONAL: Pleasant and cooperative. Nontoxic-appearing and in no acute distress. Well appearing and well nourished. HEENT: Normocephalic, atraumatic. NECK: Supple, full active range of motion without discomfort. RESPIRATORY: Clear to auscultation bilaterally with no wheezing, crackles, rhonchi or stridor. Equal expansion bilaterally. CARDIOVASCULAR: Regular rate and rhythm with no murmurs, rubs or gallops. Normal peripheral perfusion. No edema. GASTROINTESTINAL: Soft, nontender, nondistended. Bowel sounds present in all quadrants. MUSCULOSKELETAL: Full range of motion of the left knee and ankle joints without discomfort. Moderate pitting edema noted to the left ankle and foot. 2+ DP and PT pulses bilaterally. Homans' sign negative. INTEGUMENTARY: There is a large wound overlying the anterior aspect of the left mid calf/calloway, skin flap is black/necrotic appearing, several areas of wound dehiscence appreciated along the wound margins, but not gaping widely open. No purulent discharge noted. The surrounding skin is erythematous, tender and hot to the touch. No lymphangitic streaking. NEUROLOGIC: Alert and oriented X 4 with normal affect. Normal strength and sensation in all 4 extremities. Normal speech. ED COURSE AND MEDICAL DECISION MAKING: CC: Patient presenting with complaint of left leg infection DIFFERENTIAL DIAGNOSIS: Includes, but not limited to cellulitis, abscess, wound infection, MRSA infection, wound dehiscence, wound necrosis, DVT, peripheral vascular disease, outpatient therapy failure, among others. INTERPRETATION OF LABS: No leukocytosis, no anemia, normal platelets, no significant electrolyte abnormalities, normal renal function, elevated alk phos, otherwise normal liver enzymes. Lactate normal. Procalcitonin normal. MEDICATION RECONCILIATION: I attest that I have personally reviewed the patient's current medication list. INITIAL VITAL SIGNS REVIEW: I reviewed the patient's initial vital signs and interpret them as follows: T: Afebrile; BP: Hypertensive; HR: Mildly tachycardic; RR: Within normal limits; Pulse Ox: Within normal limits on room air. MDM SUMMARY: Patient was evaluated at bedside, history and physical exam performed. Patient is alert and oriented, in no acute distress, resting calmly in the stretcher. She is afebrile and nontoxic-appearing. Large wound to the left lower leg as described above, appears consistent with cellulitis. No purulent discharge or significant foul odor noted. Preliminary report of her outpatient wound culture was obtained and reviewed showing preliminary result of 2+ gram-positive cocci in pairs, the rest of the culture is still pending. Tenderness is primarily around the wound and anterior aspect of the calf, no posterior knee or calf tenderness on my exam and no Homans' sign, I do not suspect DVT at this time. Orders were placed for labs including blood cultures and lactate and procalcitonin, x-ray of the tibia/fibula. The patient was offered something for pain, she prefers to take her own Tylenol and declines anything stronger for pain. Patient with cardiac history on Lasix, she does not appear to be septic, will hold off on any IV fluids for now. Cardiac monitoring: An order was placed for continuous cardiac monitoring. The monitor shows a rate of 84 bpm with normal sinus rhythm. Skin markings placed at approximately 2 PM. No rapid expansion of cellulitis noted while the patient was in the ED. Orders also placed for IV ceftriaxone and vancomycin to treat cellulitis. Labs and imaging reviewed, no leukocytosis, lactate and procalcitonin are normal. X-ray noting soft tissue swelling with foci of lucency, no evidence for osteomyelitis. I do not suspect gas-forming infection, as the areas of lucency correspond to her open wound. As patient has already been treated with outpatient antibiotics and is now developing cellulitis, I did feel that she warranted admission. Spoke with the [facility] hospitalist team who requested general surgery also be consulted. Dr. Castro with general surgery evaluated the patient and plans to take her to the OR tomorrow for wound debridement. Additional orders placed for CT per request of hospitalist and surgery teams, no concern for deep space abscess or necrotizing fasciitis per Dr. Castro. [facility]. Patient reassessed throughout ED stay, she has remained hemodynamically stable and afebrile. The patient and her were updated on all results and plan for admission, all questions were answered to the best of my ability and the patient was agreeable to this plan. The patient was stable at the time of admission. Patient discussed with Dr. Fang, ED attending, who also evaluated the patient and agrees with my assessment, plan, and disposition. The chart was completed utilizing [employer] Speech voice recognition software. Grammatical errors, random word insertions, pronoun errors, and incomplete sentences are an occasional consequence of this system due to software limitations, ambient noise, and hardware issues. Any formal questions or concerns about the content, text, or information contained within the body of this dictation should be directly addressed to the nurse practitioner for clarification. Past Med/Surg History Medical History Cough Hx of fracture of ankle History of COVID-19 Hx of cardiac arrest Hyperlipidemia Hypertension History of coronary artery disease Surgical History History of left cataract surgery Hx of cardiac catheterization Hx of eye surgery Hx of cholecystectomy Family History Mother Family history of diabetes mellitus Father Family history of diabetes mellitus Social History Smoking Status: Unknown if ever smoked Tobacco Type: Cigarettes Second Hand Exposure: No; Do You Dip or Chew Tobacco: No; Hx Alcohol Use: No Hx Substance Use: No Preferred Language: Armenian Communication Ability: Effective Regional Engagement Consultant Required: No Beliefs That Will Affect Care: None Current Living Situation: Spouse Feels Safe at Home: Yes Assistive Devices: Other Allergies Allergies Allergy/AdvReac Type Severity Reaction Status Date / Time Penicillins Allergy Intermediate ITCHY HIVES Verified 08/04/23 14:01 sulfamethoxazole AdvReac Intermediate GI SYMPTOMS Verified 08/04/23 14:01 trimethoprim AdvReac Intermediate GI SYMPTOMS Verified 08/04/23 14:01 Home Meds Home Medications Medication Instructions Recorded Confirmed ascorbic acid (vitamin C) 500 mg 1,000 mg PO QAM 12/09/19 08/04/23 tablet (Vitamin C) aspirin 81 mg tablet,delayed 81 mg PO QAM 12/09/19 08/04/23 release atorvastatin 80 mg tablet 80 mg PO HS 12/09/19 08/04/23 cholecalciferol (vitamin D3) 25 25 mcg PO QAM 12/09/19 08/04/23 mcg (1,000 unit) tablet (Vitamin D3) fluticasone propionate 50 1 spray intranasal QAM 12/09/19 08/04/23 mcg/actuation nasal spray,suspension (Flonase Allergy Relief) loratadine 10 mg tablet (Claritin) 10 mg PO QAM 12/09/19 08/04/23 nitroglycerin 0.4 mg sublingual 0.4 mg sublingual DIRECTED PRN 12/09/19 08/04/23 tablet (Nitrostat) Chest Pain [id number]-[id number] tablet 1 tab PO DAILY 06/15/23 08/04/23 zinc gluconate 50 mg tablet 50 mg PO DAILY 06/15/23 08/04/23 cephalexin 500 mg capsule 500 mg PO QID 08/04/23 08/04/23 lansoprazole 30 mg capsule,delayed 30 mg PO QAM 08/04/23 08/04/23 release metoprolol tartrate 25 mg tablet 25 mg PO BID 08/04/23 08/04/23 Results & Data (ED) Vital Signs Vital Signs - 24 hr 08/04/23 11:18 08/04/23 12:27 08/04/23 12:30 Temperature 36.9 C Temperature Source Temporal Artery Scan Pulse Rate 99 H 81 78 Pulse Rate [Apical] Pulse Rate from SpO2 Sensor Respiratory Rate 20 16 18 Respiratory Effort / Characteristics Non-Labored Spontaneous Respiratory Depth Normal Blood Pressure 183/106 H Blood Pressure Mean 131 Blood Pressure Position [Left Arm] Pulse Oximetry 97 Oxygen Delivery Method Room Air Sepsis Recent Fever Within 48 Hours No Sepsis New/Unexplained Change in Mental Status No Sepsis Action Taken by Nursing No Action Required 08/04/23 12:35 08/04/23 12:40 08/04/23 12:50 Temperature Temperature Source Pulse Rate 78 78 76 Pulse Rate [Apical] Pulse Rate from SpO2 Sensor Respiratory Rate 22 20 Respiratory Effort / Characteristics Respiratory Depth Blood Pressure Blood Pressure Mean Blood Pressure Position [Left Arm] Pulse Oximetry Oxygen Delivery Method Sepsis Recent Fever Within 48 Hours Sepsis New/Unexplained Change in Mental Status Sepsis Action Taken by Nursing 08/04/23 13:00 08/04/23 13:00 08/04/23 13:10 Temperature Temperature Source Pulse Rate 74 72 Pulse Rate [Apical] Pulse Rate from SpO2 Sensor Respiratory Rate 19 18 Respiratory Effort / Characteristics Respiratory Depth Blood Pressure 148/113 H Blood Pressure Mean 123 Blood Pressure Position [Left Arm] Pulse Oximetry Oxygen Delivery Method Sepsis Recent Fever Within 48 Hours Sepsis New/Unexplained Change in Mental Status Sepsis Action Taken by Nursing 08/04/23 13:20 08/04/23 13:30 08/04/23 13:34 Temperature Temperature Source Pulse Rate 74 77 Pulse Rate [Apical] 75 Pulse Rate from SpO2 Sensor Respiratory Rate 21 22 20 Respiratory Effort / Characteristics Non-Labored Spontaneous Respiratory Depth Normal Blood Pressure Blood Pressure Mean Blood Pressure Position [Left Arm] Sitting Pulse Oximetry 97 Oxygen Delivery Method Room Air Sepsis Recent Fever Within 48 Hours Sepsis New/Unexplained Change in Mental Status Sepsis Action Taken by Nursing 08/04/23 13:40 08/04/23 14:00 08/04/23 14:02 Temperature Temperature Source Pulse Rate 82 85 Pulse Rate [Apical] Pulse Rate from SpO2 Sensor 80 81 Respiratory Rate 19 26 H Respiratory Effort / Characteristics Respiratory Depth Blood Pressure 138/111 H Blood Pressure Mean 124 Blood Pressure Position [Left Arm] Pulse Oximetry 98 85 L Oxygen Delivery Method Sepsis Recent Fever Within 48 Hours Sepsis New/Unexplained Change in Mental Status Sepsis Action Taken by Nursing 08/04/23 14:02 08/04/23 15:04 08/04/23 16:00 Temperature Temperature Source Pulse Rate 84 89 88 Pulse Rate [Apical] Pulse Rate from SpO2 Sensor Respiratory Rate 18 14 19 Respiratory Effort / Characteristics Respiratory Depth Blood Pressure Blood Pressure Mean Blood Pressure Position [Left Arm] Pulse Oximetry Oxygen Delivery Method Sepsis Recent Fever Within 48 Hours Sepsis New/Unexplained Change in Mental Status Sepsis Action Taken by Nursing 08/04/23 16:01 08/04/23 16:01 08/04/23 16:10 Temperature Temperature Source Pulse Rate 88 85 Pulse Rate [Apical] Pulse Rate from SpO2 Sensor Respiratory Rate 21 19 Respiratory Effort / Characteristics Respiratory Depth Blood Pressure 133/102 H 171/95 H Blood Pressure Mean 117 120 Blood Pressure Position [Left Arm] Pulse Oximetry 97 Oxygen Delivery Method Room Air Sepsis Recent Fever Within 48 Hours Sepsis New/Unexplained Change in Mental Status Sepsis Action Taken by Nursing 08/04/23 17:08 Temperature Temperature Source Pulse Rate Pulse Rate [Apical] Pulse Rate from SpO2 Sensor Respiratory Rate Respiratory Effort / Characteristics Respiratory Depth Blood Pressure Blood Pressure Mean Blood Pressure Position [Left Arm] Pulse Oximetry Oxygen Delivery Method Room Air Sepsis Recent Fever Within 48 Hours Sepsis New/Unexplained Change in Mental Status Sepsis Action Taken by Nursing Laboratory Data 08/04/23 11:37 08/04/23 11:37 Lab Results 08/04/23 Range/Units 11:37 WBC 8.37 (4.8-10.8) K/ul RBC 3.81 L (4.20-5.40) M/uL Hgb 12.5 (12.0-16.0) g/dl Hct 38.0 (37.0-47.0) % MCV 99.7 (80.0-100.0) fL MCH 32.8 (25.0-34.0) pg MCHC 32.9 (32.0-36.0) g/dL RDW Std Deviation 50.8 H (36.4-46.3) fL RDW Coeff of Aimee 13.8 (11.5-14.5) % Plt Count 358 (130-400) K/uL MPV 9.7 (9.4-12.4) fL Immature Gran % (Auto) 0.4 % Neut % (Auto) 68.0 % Lymph % (Auto) 9.2 % [place] % (Auto) 10.6 % Eos % (Auto) 11.2 % Baso % (Auto) 0.6 % Neut # (Auto) 5.69 (1.40-6.50) K/uL Lymph # (Auto) 0.77 L (1.20-3.40) K/uL [place] # (Auto) 0.89 H (0.11-0.59) K/uL Eos # (Auto) 0.94 H (0.00-0.50) K/uL Baso # (Auto) 0.05 (0.00-0.20) K/uL Immature Gran # (Auto) 0.03 (0.01-0.20) K/uL Sodium 138 (136-145) mmol/L Potassium 4.0 (3.5-5.1) mmol/L Chloride 103 (98-107) mmol/L Carbon Dioxide 29 (21-32) mmol/L Anion Gap 6 (3-11) BUN 12 (6-23) mg/dl Creatinine 0.72 (0.6-1.2) mg/dl Est Cr Clr Drug Dosing 88.7 ml/min Est GFR ( Amer) 101.1 ml/min Est GFR (Non-Af Amer) 87.3 ml/min BUN/Creatinine Ratio 16.7 (10-20) Glucose 95 (70-99(Fasting)) mg/dl Lactate 1.2 (0.4-2.0) mmol/L Calcium 8.9 (8.6-10.3) mg/dl Total Bilirubin 0.4 (0.2-1.0) mg/dl AST 21 (13-39) U/L ALT 28 (7-52) U/L Alkaline Phosphatase 146 H (34-104) U/L Total Protein 6.9 (6.0-8.3) gm/dl Albumin 3.7 (3.4-5.0) gm/dl Globulin 3.2 (2.5-4.0) gm/dl Albumin/Globulin Ratio 1.2 (0.9-2) Procalcitonin < 0.02 (0-0.5) ng/ml Administered Medications Meropenem 500 mg/ Syringe 10 mls @ 2 mls/min IV Q6H [facility]; Protocol Stop: 08/11/23 15:59 Last Admin: 08/04/23 16:54 Dose: 2 mls/min Documented By: SHELIA Clindamycin Phosphate (Cleocin/D5w) 600 mg in 50 mls @ 100 mls/hr IV Q8H COLBY Stop: 08/11/23 15:59 Last Admin: 08/04/23 16:55 Dose: 100 mls/hr Documented By: SHELIA Discontinued Medications Vancomycin HCl 2,750 mg/ (Sodium Chloride) 555 mls @ 200 mls/hr IV NOW ONE Stop: 08/04/23 14:40 Last Infusion: 08/04/23 16:55 Dose: Infused Documented By: Admin: 08/04/23 13:30 Dose: 200 mls/hr Documented By: MER Ceftriaxone Sodium (Rocephin) 2,000 mg in 50 mls @ 100 mls/hr IV NOW STA Stop: 08/04/23 12:23 Last Infusion: 08/04/23 12:44 Dose: Infused Documented By: Admin: 08/04/23 12:09 Dose: 100 mls/hr Documented By: JOAO Ioversol (Optiray 320 100ml) 90 ml IV ONCE ONE Stop: 08/04/23 14:51 Last Admin: 08/04/23 14:51 Dose: 90 ml Documented By: EDK Imaging Data Radiologist's Impression: Tibia/Fibula X-Ray 08/04/23 11:57 XR tibia fibula LT 2V CLINICAL HISTORY: leg wound, cellulitis TECHNIQUE: 2 radiographic views of the left leg were obtained. Comparison: None available at the time of this dictation. FINDINGS: There is no evidence of an acute fracture. Joint spaces are well-preserved. Soft tissue swelling is seen. Focal lucencies are seen in the medial mid leg. IMPRESSION: Soft tissue swelling compatible with cellulitis. There are foci of lucency in the medial leg concerning for gas-forming infection No evidence of osteomyelitis. ACT 112: Negative or not required by law. Electronically signed by: Jeb Anders M.D. 08/04/2023 1:[address] 08/04/23 14:10 CT tib/fib LT w con CLINICAL HISTORY: leg wound infection, eval nec fasc TECHNIQUE: Multidetector row helical CT of the left tibia and fibula was performed without intravenous contrast. Coronal and sagittal reformations were obtained. Automated dose lowering techniques and/or adjustment according to patient size were utilized for this examination. CT DOSE: 334.52 mGy.cm Comparison: Comparison is made to CT tibia and fibula 08/04/2023 FINDINGS: The osseous structures are without fracture or dislocation. The joint spaces are maintained. No joint effusion is seen. Soft tissue swelling is seen. There is subcutaneous emphysema in the anteromedial leg under the region of bandage. No drainable fluid collection. IMPRESSION: Findings compatible with gas forming infection in the anteromedial soft tissues of the leg. No drainable abscess is seen. No bony erosions to suggest osteomyelitis. ACT 112: Negative or not required by law. Electronically signed by: Jeb Anders M.D. 08/04/2023 3:11 PM Discharge Plan Visit Data Chief Complaint: Infection, Wound Stated Complaint: LEFT LEG WOUND ED Provider: Demond Fang ED Midlevel Provider: Mary Nino Discharge Problem: Traumatic open wound of lower leg with infection Patient Disposition: Admitted As Inpatient Discharge Instructions Interventions: ED Discharge Assessment Last Done: 08/04/23 17:08 Forms Stand Alone Forms: [facility] Prescriptions Prescriptions: No Action atorvastatin 80 mg Tablet 80 mg PO HS aspirin 81 mg Tablet,Delayed Release (Dr/Ec) 81 mg PO QAM ascorbic acid (vitamin C) [Vitamin C] 500 mg Tablet 1,000 mg PO QAM nitroglycerin [Nitrostat] 0.4 mg Tablet, Sublingual 0.4 mg sublingual DIRECTED PRN (Reason: Chest Pain) Rx Instructions: Pt states that she has them but they are . fluticasone propionate [Flonase Allergy Relief] 50 mcg/actuation [place],Suspension 1 spray INTRANASAL QAM loratadine [Claritin] 10 mg Tablet 10 mg PO QAM cholecalciferol (vitamin D3) [Vitamin D3] 25 mcg (1,000 unit) Tablet 25 mcg PO QAM zinc gluconate 50 mg Tablet 50 mg PO DAILY Centrum Silver Tablet 1 tab PO DAILY cephalexin 500 mg capsule 500 mg PO QID Rx Instructions: Start Date 08/02/23 - End Date 08/12/23. As of 08/04/23 pt has taken 9 doses. Took the 9th dose this morning. lansoprazole 30 mg capsule,delayed release(DR/EC) 30 mg PO QAM metoprolol tartrate 25 mg tablet 25 mg PO BID Referrals Referrals: Maritza Garg PA-C [Primary Care Provider] - Discharge Problem: Traumatic open wound of lower leg with infection Qualifiers: Laterality: left
[2023-08-04 12:34] LABS: Albumin Globulin Ratio 1.2 (0.9-2); Albumin Level 3.7 gm/dl (3.4-5.0); BUN Creatinine Ratio 16.7 (10-20); Bilirubin,Total 0.4 mg/dl (0.2-1.0); Calcium 8.9 mg/dl (8.6-10.3); Creatinine Clr Calc Pharmacy 88.7 ml/min; Est GFR (African American) 101.1 ml/min; Est GFR (Non-African American) 87.3 ml/min; Globulin 3.2 gm/dl (2.5-4.0); Total Protein 6.9 gm/dl (6.0-8.3)
[2023-08-04] MEDS: VANCOMYCIN HCL 2,750 MG in SODIUM CHLORIDE 0.9% 500 ML IV ONE (13:30)
--- NOTE | 2023-08-04 13:33 | XRay Report ---
XR tibia fibula LT 2V CLINICAL HISTORY: leg wound, cellulitis TECHNIQUE: 2 radiographic views of the left leg were obtained. Comparison: None available at the time of this dictation. FINDINGS: There is no evidence of an acute fracture. Joint spaces are well-preserved. Soft tissue swelling is s een. Focal lucencies are seen in the medial mid leg. IMPRESSION: Soft tissue swelling compatible with cellulitis. There are foci of lucency in the medial leg concerni ng for gas-forming infection No evidence of osteomyelitis. ACT 112: Negative or not required by law. Electronically signed by: Jeb Anders M.D. 08/04/2023 1:32 PM
[2023-08-04] MEDS: OPTIRAY 320 100ml IV ONE (14:51)
--- NOTE | 2023-08-04 15:14 | CT Scan Report ---
CT tib/fib LT w con CLINICAL HISTORY: leg wound infection, eval nec fasc TECHNIQUE: Multidetector row helical CT of the left tibia and fibula was performed without intravenou s contrast. Coronal and sagittal reformations were obtained. Automated dose lowering techniques and/o r adjustment according to patient size were utilized for this examination. CT DOSE: 334.52 mGy.cm Comparison: Comparison is made to CT tibia and fibula 08/04/2023 FINDINGS: The osseous structures are without fracture or dislocation. The joint spaces are maintained. No joint effusion is seen. Soft tissue swelling is seen. There is subcutaneous emphysema in the anteromedial leg under the region of bandage. No drainable fluid collection. IMPRESSION: Findings compatible with gas forming infection in the anteromedial soft tissues of the leg. No draina ble abscess is seen. No bony erosions to suggest osteomyelitis. ACT 112: Negative or not required by law. Electronically signed by: Jeb Anders M.D. 08/04/2023 3:11 PM
--- NOTE | 2023-08-04 15:48 | Surgery Consultation ---
Date of Consultation August 04, 2023 Assessment & Plan (1) Cellulitis of left leg: (2) Wound of left lower extremity: Wound of left lower extremity- CT scan completed in ED and reviewed with Dr. Castro. Wound would benefit from debridement in OR. Will plan for OR debridement tomorrow, Friday 08/04. Possible wound vac placement on Sunday pending recommendations from wound care. Patient has follow-up with [facility] this coming Sunday, encouraged to keep appointment. Patient will be admitted to hospitalist service. Will make patient NPO after midnight. Patient seen and examined with Dr. Castro. Supervising Physician Co-Signing Physician Notes I personally saw and evaluated the patient with Eliz Garg PA-C and agree with the assessment and plan. 68 yo female with left lower extremity necrotic wound CT images and results personally viewed and interpreted by myself I do not think she has a NSTI, but she certainly needs her wound debrided in the OR in order for it to properly heal She is being admitted to medicine Keep NPO, start IV ABX and will plan for debridement tomorrow in AM Wound care consult for Sunday History of Present Illness Reason for Consultation: Cellulitis, Wound of Left Lower Extremity History of Present Illness 68 year old female presented to [facility] for worsening wound of left lower extremity. She reports that back on 07/20, she sustained a bad cut to her leg that required suture repair. She had laceration repaired at [facility] in [place]. She reports that skin of wound was black when it was initially repaired. She was discharged to home from [place] that day with a course of Keflex. Sutures were removed locally by PCP on 08/01. When sutures were removed, patient's PCP was concerned about infection and a second course of Keflex was given. Culture was obtained in PCP office. Over the past couple of days, the wound has become red and more painful. Mayra denies any fevers or chills. No history of diabetes. Takes a daily Aspirin. Allergies Allergy/AdvReac Type Severity Reaction Status Date / Time Penicillins Allergy Intermediate ITCHY HIVES Verified 08/04/23 14:01 sulfamethoxazole AdvReac Intermediate GI SYMPTOMS Verified 08/04/23 14:01 trimethoprim AdvReac Intermediate GI SYMPTOMS Verified 08/04/23 14:01 Home Medications Medication Instructions Recorded Confirmed Type ascorbic acid (vitamin C) 500 mg 1,000 mg PO QAM 12/09/19 08/04/23 History tablet (Vitamin C) aspirin 81 mg tablet,delayed 81 mg PO QAM 12/09/19 08/04/23 History release atorvastatin 80 mg tablet 80 mg PO HS 12/09/19 08/04/23 History cholecalciferol (vitamin D3) 25 25 mcg PO QAM 12/09/19 08/04/23 History mcg (1,000 unit) tablet (Vitamin D3) fluticasone propionate 50 1 spray intranasal QAM 12/09/19 08/04/23 History mcg/actuation nasal spray,suspension (Flonase Allergy Relief) loratadine 10 mg tablet (Claritin) 10 mg PO QAM 12/09/19 08/04/23 History nitroglycerin 0.4 mg sublingual 0.4 mg sublingual DIRECTED PRN 12/09/19 08/04/23 History tablet (Nitrostat) Chest Pain oypqbzpsohft-ojbyekud-buwbjo tablet 1 tab PO DAILY 06/15/23 08/04/23 History zinc gluconate 50 mg tablet 50 mg PO DAILY 06/15/23 08/04/23 History cephalexin 500 mg capsule 500 mg PO QID 08/04/23 08/04/23 History lansoprazole 30 mg capsule,delayed 30 mg PO QAM 08/04/23 08/04/23 History release metoprolol tartrate 25 mg tablet 25 mg PO BID 08/04/23 08/04/23 History Patient History Medical History Cough Hx of fracture of ankle History of COVID-19 Hx of cardiac arrest Hyperlipidemia Hypertension History of coronary artery disease Surgical History History of left cataract surgery Hx of cardiac catheterization Hx of eye surgery Hx of cholecystectomy Family History Mother Family history of diabetes mellitus Father Family history of diabetes mellitus Social History Smoking Status: Unknown if ever smoked Tobacco Type: Cigarettes Second Hand Exposure: No; Do You Dip or Chew Tobacco: No; Hx Alcohol Use: No Hx Substance Use: No Preferred Language: Tamazight Communication Ability: Effective Digital Traffic Coordinator Required: No Beliefs That Will Affect Care: None Current Living Situation: Spouse Feels Safe at Home: Yes Assistive Devices: Other Review of Systems Constitutional: as per Subjective / HPI; no fever and no chills Respiratory: no cough and no dyspnea Cardiovascular: no chest pain, no chest pain at rest, no chest pain with activity, no radiating jaw, neck or arm pain, no dyspnea, no dyspnea at rest, no dyspnea on exertion and no calf pain Integumentary: as per Subjective / HPI Physical Exam Constitutional: WD/WN, vitals as above Respiratory: normal respiratory effort, lungs clear to auscultation Cardiovascular: RRR, no murmur, no edema Gastrointestinal (Abdomen): normal bowel sounds, soft, nontender, no hepatosplenomegaly Skin: Wound of left lower extremity- overlaying tissue is necrotic. Surrounding tissue is erythematic. Area of redness marked with skin marker. Psychiatric: A+Ox3, euthymic affect Results & Data Vital Signs (Past 12 Hours) Vital Signs Temp Pulse Pulse Resp BP Pulse Ox O2 Del Method 08/04/23 13:40 82 19 98 08/04/23 13:34 75 20 97 Room Air 08/04/23 13:30 77 22 08/04/23 13:20 74 21 08/04/23 13:10 72 18 08/04/23 13:00 74 19 08/04/23 13:00 148/113 H 08/04/23 12:50 76 20 08/04/23 12:40 78 22 08/04/23 12:35 78 08/04/23 12:30 78 18 08/04/23 12:27 81 16 08/04/23 11:18 36.9 C 99 H 20 183/106 H 97 Room Air PG Care Time/CCT Total # of Minutes Spent Total Time Spent with Patient: Total time spent is greater than 50% in coordination of care (as documented) at patient's floor/unit and/or counseling patient: Coding Level of Care Code 32178 INT INP/OBS CARE 375MIN Diagnoses Cellulitis of left leg L03.116 Wound of left lower extremity S81.802A
--- NOTE | 2023-08-04 16:02 | History & Physical Report ---
Date of Service August 04, 2023 Assessment & Plan (1) Traumatic open wound of lower leg with infection: Plan: Infection of recent lac repair despite Keflex. Wound culture obtained as outpatient but results are not available. She is not septic, however, there is some gas on the CT leg. This is most likely related to communication with the leg surface, however, will empirically cover for toxin-producing organisms such as GAS with clindamycin in addition to broad spectrum carbapenem and vancomycin pending surgical debridement in the morning. She was seen by general surgery this afternoon and although necrotizing infection was considered, this was felt to be less likely. Her pain is well controlled and will add on agents prn. Wound care consulted. (2) CAD (coronary artery disease): Plan: chronic, stable. h/o [place] in 2016 with angoiplasty and med management recommended. Follows with [facility] cardiology. Cont ASA, Metoprolol and atorvastatin per home regimen. (3) Morbid obesity: Plan: Lifestyle changes recommended. Documented as this adds to her severity of illness. DVT proph-ambulation as tolerated. Will hold off on chemoprophylaxis with upcoming procedure in the morning. Consider adding this post op as soon as able. Full Code Dispo-med/surg floor. I spent a total [id number] coordinating, documenting, and providing care for this patient excluding time spent in the performance of separately billed services Sakina Sanders DO [facility] Hospitalist History of Present Illness Chief Complaint: leg infection Primary Care Provider: Maritza Garg PA-C 68-year-old female presented for left lower extremity laceration after getting her foot stuck in her 's truck and hitting her lower left anterior leg into the chacha running board while trying to climb up into the truck. Traumatic laceration was evaluated at [facility] on 07/20/2023. At that time she had no associated symptoms of fever chills. She was hypertensive and in severe pain. Laceration was repair was performed with no muscle damage nerve damage or tendon damage noted. She did receive a tetanus shot and a dose of Keflex in the ER and was sent home with a course of keflex. She presents today with swelling redness and pain in the left leg has been increasing for the past 2 days. She reports seeing her primary care physician 2 days ago with removal of the stitches. At that time her provider thought she might have some pus drainage and sent a wound culture. These results are not available for review. She was started on a second course of Keflex 2 days ago. In the ER today no purulent discharge or significant foul odor was noted. There was tenderness primarily around the wound and anterior aspect of the calf but no posterior knee or calf tenderness. There is some numbness to her left foot which is cooler to touch than the right. She denies any fevers or chills and reports eating and drinking without issue. She has been managing her pain with Tylenol and refuses anything stronger than this at the moment. is at bedside and assists with the history. He said that the erythema around her wound started spreading up and down from her wound and there was increased drainage from the wound, which is covered with a large layer of eschar. There is some gauze that is now stuck in the wound around the eschar. Her left lower leg is warmer to touch where the skin is red. The wound is several cm in diameter across the front of her distal leg. Allergies Allergy/AdvReac Type Severity Reaction Status Date / Time Penicillins Allergy Intermediate ITCHY HIVES Verified 08/04/23 14:01 sulfamethoxazole AdvReac Intermediate GI SYMPTOMS Verified 08/04/23 14:01 trimethoprim AdvReac Intermediate GI SYMPTOMS Verified 08/04/23 14:01 Home Medications Medication Instructions Recorded Confirmed Type ascorbic acid (vitamin C) 500 mg 1,000 mg PO QAM 12/09/19 08/04/23 History tablet (Vitamin C) aspirin 81 mg tablet,delayed 81 mg PO QA 12/09/19 08/04/23 History release atorvastatin 80 mg tablet 80 mg PO 12/09/19 08/04/23 History cholecalciferol (vitamin D3) 25 25 mcg PO QAM 12/09/19 08/04/23 History mcg (1,000 unit) tablet (Vitamin D3) fluticasone propionate 50 1 spray intranasal QAM 12/09/19 08/04/23 History mcg/actuation nasal spray,suspension (Flonase Allergy Relief) loratadine 10 mg tablet (Claritin) 10 mg PO QAM 12/09/19 08/04/23 History nitroglycerin 0.4 mg sublingual 0.4 mg sublingual DIRECTED PRN 12/09/19 08/04/23 History tablet (Nitrostat) Chest Pain sdvipryiunej-jzbhhkkn-vorwod tablet 1 tab PO DAILY 06/15/23 08/04/23 History zinc gluconate 50 mg tablet 50 mg PO DAILY 06/15/23 08/04/23 History alprazolam 0.25 mg tablet (Xanax) 0.25 mg PO Q24H PRN Anxiety 08/04/23 08/04/23 History cephalexin 500 mg capsule 500 mg PO QID 08/04/23 08/04/23 History lansoprazole 30 mg capsule,delayed 30 mg PO QAM 08/04/23 08/04/23 History release metoprolol tartrate 25 mg tablet 25 mg PO BID 08/04/23 08/04/23 History Past Med/Surg History Medical History (Updated 08/04/23 @ 18:29 by Sakina Sanders DO) CAD (coronary artery disease) Intramural leiomyoma of uterus Angiolipoma of right kidney Cough OCC/ONGOING/NO CHANGE IN BASELINE Hx of fracture of ankle LT, no sx. History of COVID-19 01/2021, not hospitalized, covid pneumonia, cough Hx of cardiac arrest 2015, f/u Dr. Maynard ([facility]) Hyperlipidemia Hypertension History of coronary artery disease Surgical History History of left cataract surgery OCTOBER 2021 Hx of cardiac catheterization w/angioplasty, 2015, blockage 80%, medical management Hx of eye surgery rt. as a baby Hx of cholecystectomy Family History (Updated 08/04/23 @ 17:52 by Sakina Sanders DO) Mother Family history of diabetes mellitus Colorectal cancer Father Family history of diabetes mellitus Social History (Updated 08/04/23 @ 17:54 by Sakina Sanders DO) Smoking Status: Never smoker Tobacco Type: Cigarettes Second Hand Exposure: No; Do You Dip or Chew Tobacco: No; Hx Alcohol Use: No Hx Substance Use: No Preferred Language: French Communication Ability: Effective Sales Outfitter Required: No Beliefs That Will Affect Care: None marital status: Current Living Situation: Spouse Feels Safe at Home: Yes Assistive Devices: Other Physical Exam Physical Exam: CONSTITUTIONAL: obese, vitals as above, generally well-appearing EYES: normal conjunctivae, no scleral icterus ENT: external ear and nose normal, MMM NECK: trachea midline RESPIRATORY: clear to auscultation bilaterally, no crackles, rales or wheezes, normal respiratory effort CARDIOVASCULAR: regular rate and rhythm, S1 and 2 heard without murmurs, gallops or rubs, no JVD, no peripheral edema CHEST: inspection of chest was normal GASTROINTESTINAL: soft, nontender, ND, no guarding MUSCULOSKELETAL: strength 5/5 throughout, head is normocephalic and atraumatic SKIN: warm and dry, LLE anterior wound that is approx 10 cm across and with large area of eschar and some serous drainage. NEUROLOGIC: No facial palsy, no dysarthria. CN 2-12 grossly intact, +numbness in foot reported on left but no sensory deficit when compared to left, normal cognition, normal speech, no tremor PSYCHIATRIC: alert cooperative and oriented to person, place and time. Euthymic mood, makes good eye contact, language grossly intact, recent and remote memory grossly intact. Results & Data Results & Data Vital Signs (Past 12 Hours) Vital Signs Temp Pulse Pulse Resp BP Pulse Ox O2 Del Method 08/04/23 13:40 82 19 98 08/04/23 13:34 75 20 97 Room Air 08/04/23 13:30 77 22 08/04/23 13:20 74 21 08/04/23 13:10 72 18 08/04/23 13:00 74 19 08/04/23 13:00 148/113 H 08/04/23 12:50 76 20 08/04/23 12:40 78 22 08/04/23 12:35 78 08/04/23 12:30 78 18 08/04/23 12:27 81 16 08/04/23 11:18 36.9 C 99 H 20 183/106 H 97 Room Air Laboratory Results Short CBC 08/04/23 Range/Units 11:37 WBC 8.37 (4.8-10.8) K/ul Hgb 12.5 (12.0-16.0) g/dl Hct 38.0 (37.0-47.0) % Plt Count 358 (130-400) K/uL BMP 08/04/23 11:37 Sodium 138 Potassium 4.0 Chloride 103 Carbon Dioxide 29 BUN 12 Creatinine 0.72 Glucose 95 Calcium 8.9 Liver Function 08/04/23 Range/Units 11:37 Total Bilirubin 0.4 (0.2-1.0) mg/dl AST 21 (13-39) U/L ALT 28 (7-52) U/L Alkaline Phosphatase 146 H (34-104) U/L Albumin 3.7 (3.4-5.0) gm/dl Diagnostic Findings Tibia/Fibula X-Ray 08/04/23 11:57 XR tibia fibula LT 2V CLINICAL HISTORY: leg wound, cellulitis TECHNIQUE: 2 radiographic views of the left leg were obtained. Comparison: None available at the time of this dictation. FINDINGS: There is no evidence of an acute fracture. Joint spaces are well-preserved. Soft tissue swelling is seen. Focal lucencies are seen in the medial mid leg. IMPRESSION: Soft tissue swelling compatible with cellulitis. There are foci of lucency in the medial leg concerning for gas-forming infection No evidence of osteomyelitis. ACT 112: Negative or not required by law. Electronically signed by: Jeb Anders M.D. 08/04/2023 1:[address] 08/04/23 14:10 CT tib/fib LT w con CLINICAL HISTORY: leg wound infection, eval nec fasc TECHNIQUE: Multidetector row helical CT of the left tibia and fibula was performed without intravenous contrast. Coronal and sagittal reformations were obtained. Automated dose lowering techniques and/or adjustment according to patient size were utilized for this examination. CT DOSE: 334.52 mGy.cm Comparison: Comparison is made to CT tibia and fibula 08/04/2023 FINDINGS: The osseous structures are without fracture or dislocation. The joint spaces are maintained. No joint effusion is seen. Soft tissue swelling is seen. There is subcutaneous emphysema in the anteromedial leg under the region of bandage. No drainable fluid collection. IMPRESSION: Findings compatible with gas forming infection in the anteromedial soft tissues of the leg. No drainable abscess is seen. No bony erosions to suggest osteomyelitis. ACT 112: Negative or not required by law. Electronically signed by: Jeb Anders M.D. 08/04/2023 3:11 PM Code Status & VTE Plan VTE Prophylaxis Plan VTE Prophylaxis will be ordered: Yes
[2023-08-04] MEDS: MEROPENEM 500 MG in SYRINGE 0 ML IV SCH (16:54)
[2023-08-04] MEDS: CLINDAMYCIN/D5W 600 MG/50 ML BAG IV SCH (16:55)
[2023-08-04] MEDS ORDERED: POLYETHYLENE (MIRALAX) 17 GM PACK PO PRN (17:45)
[2023-08-04] MEDS ORDERED: ALPRAZolam 0.25 MG TABLET PO PRN (18:08)
[2023-08-04] MEDS: METOPROLOL TARTRATE 25 MG TAB PO SCH (20:28)
[2023-08-04] MEDS: ATORVASTATIN 40 MG TAB PO SCH (21:52)
[2023-08-04] MEDS: DAPTOmycin 300 MG in SYRINGE 0 ML IV SCH (21:53)
[2023-08-04] MEDS: ACETAMINOPHEN 325 MG TAB PO PRN (21:58)
[2023-08-05 06:20] LABS: Hematocrit (blood only) 34.4 % (37.0-47.0); Hemoglobin 11.2 g/dl (12.0-16.0); Mean Corpuscular Hgb Conc 32.6 g/dL (32.0-36.0); Mean Corpuscular Volume 98.3 fL (80.0-100.0); Mean Platelet Volume 9.6 fL (9.4-12.4); Platelet Count 315 K/uL (130-400); RDW Standard Deviation 50.9 fL (36.4-46.3); White Blood Count 6.82 K/ul (4.8-10.8)
[2023-08-05 06:50] LABS: BUN Creatinine Ratio 15.5 (10-20); Calcium 8.5 mg/dl (8.6-10.3); Creatinine Clr Calc Pharmacy 89.9 ml/min; Est GFR (African American) 102.9 ml/min; Est GFR (Non-African American) 88.8 ml/min
[2023-08-05] MEDS ORDERED: fentaNYL citrate PF 100 MCG/2 ML VIAL ONE (07:04)
[2023-08-05] MEDS ORDERED: MIDAZOLAM HCL 1 MG/ML 2ML VIAL ONE (07:04)
[2023-08-05] MEDS ORDERED: FAMOTIDINE/PF 20 MG/2 ML VIAL IV ONE (07:08)
[2023-08-05] MEDS ORDERED: ACETAMINOPHEN 1000 MG/100 ML IV IV ONE (07:08)
--- NOTE | 2023-08-05 07:37 | Surgery Progress Note ---
Date of Service August 05, 2023 Assessment & Plan (1) Traumatic open wound of lower leg with infection: Plan: Proceed with excisional debridement of LLE wound Consent was obtained, risks discussed including bleeding, infection, non-healing wound Admission and Anticipated Discharge Date Admission Date: August 04, 2023 Subjective Pt seen and examined. Afebrile. No acute events overnight. Review of Systems Constitutional: no fever and no chills Integumentary: + non-healing lesions, + wounds and + er ythema Physical Exam Constitutional: WD/WN, vitals as above Respiratory: normal respiratory effort, lungs clear to auscultation Cardiovascular: RRR, no murmur, no edema Gastrointestinal (Abdomen): normal bowel sounds, soft, nontender, no hepatosplenomegaly Skin: LLE wound with eschar and surrounding cellulitis Psychiatric: A+Ox3, euthymic affect Results & Data Vital Signs (Past 12 Hours) Vital Signs Temp Pulse Pulse Resp BP Pulse Ox O2 Del Method 08/05/23 06:49 36.8 C 92 H 18 143/78 H 94 Room Air 08/04/23 20:03 36.6 C 91 H 18 117/79 97 Room Air PG Care Time/CCT Total # of Minutes Spent Total Time Spent with Patient: Total time spent is greater than 50% in coordination of care (as documented) at patient's floor/unit and/or counseling patient: Coding Level of Care Code 81751 SUB INP/OBS CARE 1/25MIN Diagnoses Traumatic open wound of lower leg with infection S81.809A; L08.9 Laterality: left (1) Traumatic open wound of lower leg with infection Laterality: left
--- NOTE | 2023-08-05 07:37 | Anesthesiology Consultation ---
Date of Service August 05, 2023 Assessment & Plan ASA ASA3 Proposed Anesthesia Anesthesia Type: General Risk / Benefits Reviewed With: PT / POA / Parent / Guardian, Accepts Plan and Informed Consent Obtained History Surgery Operation Date: 08/05/23 07:45 Proposed Procedures p Incision and Drainage of Left Lower Extremity Anterior Wound - Saul Castro DO Height/Weight Height: 5 ft Weight: 114.501 kg Allergies Allergy/AdvReac Type Severity Reaction Status Date / Time Penicillins Allergy Intermediate ITCHY HIVES Verified 08/04/23 14:01 sulfamethoxazole AdvReac Intermediate GI SYMPTOMS Verified 08/04/23 14:01 trimethoprim AdvReac Intermediate GI SYMPTOMS Verified 08/04/23 14:01 Medications Home Medications Medication Instructions Recorded Confirmed Last Taken ascorbic acid (vitamin C) 500 mg 1,000 mg PO QAM 12/09/19 08/04/23 08/04/23 tablet (Vitamin C) aspirin 81 mg tablet,delayed 81 mg PO QAM 12/09/19 08/04/23 08/04/23 release atorvastatin 80 mg tablet 80 mg PO HS 12/09/19 08/04/23 08/03/23 cholecalciferol (vitamin D3) 25 25 mcg PO QAM 12/09/19 08/04/23 08/04/23 mcg (1,000 unit) tablet (Vitamin D3) fluticasone propionate 50 1 spray intranasal QAM 12/09/19 08/04/23 08/04/23 mcg/actuation nasal spray,suspension (Flonase Allergy Relief) loratadine 10 mg tablet (Claritin) 10 mg PO QAM 12/09/19 08/04/23 08/04/23 nitroglycerin 0.4 mg sublingual 0.4 mg sublingual DIRECTED PRN 12/09/19 08/04/23 Unknown tablet (Nitrostat) Chest Pain debpyqvtgopu-eojtdciu-xtlbad tablet 1 tab PO DAILY 06/15/23 08/04/23 08/04/23 zinc gluconate 50 mg tablet 50 mg PO DAILY 06/15/23 08/04/23 08/04/23 alprazolam 0.25 mg tablet (Xanax) 0.25 mg PO Q24H PRN Anxiety 08/04/23 08/04/23 Unknown cephalexin 500 mg capsule 500 mg PO QID 08/04/23 08/04/23 08/04/23 lansoprazole 30 mg capsule,delayed 30 mg PO QAM 08/04/23 08/04/23 08/04/23 release metoprolol tartrate 25 mg tablet 25 mg PO BID 08/04/23 08/04/23 08/04/23 Active Medications Generic Name Dose Route Start Last Admin Trade Name Freq PRN Reason Stop Dose Admin Acetaminophen 650 mg 08/04/23 17:45 08/04/23 21:58 Acetaminophen 325 Mg Tab PO 09/03/23 17:44 650 mg Q4H PRN Administration Pain or Fever Atorvastatin Calcium 80 mg 08/04/23 21:00 08/04/23 21:52 Atorvastatin 40 Mg Tab PO 09/03/23 20:59 80 mg HS COLBY Administration Meropenem 500 mg/ Syringe 10 mls @ 2 mls/min 08/04/23 16:00 08/05/23 04:50 IV 08/11/23 15:59 2 mls/min Q6H COLBY Administration Protocol Clindamycin Phosphate 600 mg in 50 mls @ 100 mls/hr 08/04/23 16:00 08/05/23 00:13 Cleocin/D5w IV 08/11/23 15:59 Infused Q8H COLBY Infusion Daptomycin 300 mg/ Syringe 6 mls @ 3 mls/min 08/04/23 22:00 08/04/23 21:53 IV 08/11/23 21:59 3 mls/min Q24H COLBY Administration Protocol Metoprolol Tartrate 25 mg 08/04/23 21:00 08/04/23 20:28 Metoprolol Tartrate 25 Mg Tab PO 09/03/23 20:59 25 mg BID COLBY Administration NPO Date Last Intake of Fluids: 08/04/23 Time Last Intake of Fluids: 23:59 Date Last Intake of Solids: 08/04/23 Time Last Intake of Solids: 23:59 Past Medical History Medical History CAD (coronary artery disease) Intramural leiomyoma of uterus Angiolipoma of right kidney Cough OCC/ONGOING/NO CHANGE IN BASELINE Hx of fracture of ankle LT, no sx. History of COVID-19 01/2021, not hospitalized, covid pneumonia, cough Hx of cardiac arrest 2015, f/u Dr. Maynard ([facility]) Hyperlipidemia Hypertension History of coronary artery disease Exercise / Class Metabolic Activity II 4-5 Yardwork/Stairs/Walk up hill Past Family History Family History Mother Family history of diabetes mellitus Colorectal cancer Father Family history of diabetes mellitus Past Surgical History Surgical History History of left cataract surgery OCTOBER 2021 Hx of cardiac catheterization w/angioplasty, 2015, blockage 80%, medical management Hx of eye surgery rt. as a baby Hx of cholecystectomy Past Anesthesia History No Hx of Anesthesia Complications and No Family Hx of Anesthesia Complications History of PONV No Hx of PONV and No Hx of Motion Sickness Social History Smoking Status: Never smoker Do You Dip or Chew Tobacco: No Hx Alcohol Use: No Hx Substance Use: No substance use type: does not use Review of Systems denies fever/cough/ colds/ chest pain/ SOB/ MELISSA denies MELISSA Physical Exam Vital Signs Last Vital Signs Temp 36.8 C 08/05/23 06:49 Pulse 92 H 08/05/23 06:49 Resp 18 08/05/23 06:49 BP 143/78 H 08/05/23 06:49 Pulse Ox 94 08/05/23 06:49 O2 Del Method Room Air 08/05/23 06:49 ENMT Mouth: no TMJ abnormality and no dentition abnormality Thyromental Distance: > or= 3.5 Finger Breadths Mallampati Class: II Neck neck extension not limited Respiratory normal respiratory effort; no respiratory distress Auscultation: lungs clear to auscultation bilaterally Cardiovascular Rate/Rhythm: regular rate and regular rhythm Neurologic moves all extremities Psychiatric Orientation: alert and oriented x 3 Testing Laboratory Results 08/05/23 05:34 08/05/23 05:34
[2023-08-05] MEDS ORDERED: LIDOCAINE 2% 2 ML VIAL/AMP(20MG/ML) INFIL ONE (08:12)
[2023-08-05] MEDS ORDERED: ONDANSETRON INJ 2 MG/ML 2 ML VIAL ONE (08:12)
[2023-08-05] MEDS ORDERED: DEXAMETHASONE SOD INJ 4 MG/ML VIAL ONE (08:12)
[2023-08-05] MEDS ORDERED: PROPOFOL IV EMULSION 10 MG/ML 20 ML VIAL IV ONE (08:12)
[2023-08-05] MEDS ORDERED: METOCLOPRAMIDE HCL INJ 5 MG/ML 2 ML VIAL ONE (08:12)
--- NOTE | 2023-08-05 08:16 | Post Operative Brief Note ---
PG Immediate Post Op with CF Date of Surgery August 05, 2023 Pre & Post Diagnosis Operation Date: 08/05/23 07:45 Pre-Op Diagnosis: Left Lower Extremity Wound Post-Op Diagnosis: Left Lower Extremity Wound I identified the patient and participated in the time-out.: Yes Procedure Operation Date: 08/05/23 07:45 Actual Procedures p Excisional Debridement of Left Lower Extremity Wound 12cm x 7cm Down to Muscle/Fascia - Saul Castro DO Surgeon Saul Castro DO Check Scaler Eliz Garg PA-C Estimated Blood Loss 5 Findings See Below Necrotic skin, subcutaneous tissue and muscle fascia Anesthesia Type General Complications none Disposition Disposition: Recovery Room
[2023-08-05] MEDS: BUPIVACAINE/EPINEPHRINE 0.5% MPF 1:200,000 30 ML VIAL ONE (08:18)
--- NOTE | 2023-08-05 08:22 | Operative Report ---
PG Post Operative Report Pre & Post Diagnosis Operation Date: 08/05/23 07:45 Pre-Op Diagnosis: Left Lower Extremity Wound Post-Op Diagnosis: Left Lower Extremity Wound I identified the patient and participated in the time-out.: Yes Procedure Operation Date: 08/05/23 07:45 Actual Procedures p Excisional Debridement of Left Lower Extremity Wound 12cm x 7cm Down to Muscle/Fascia - Saul Castro DO Surgeon Saul Castro DO Risk Manager Eliz Garg PA-C Estimated Blood Loss 5 Findings See Below Necrotic skin, subcutaneous tissue and muscle fascia Specimens None Drains None Anesthesia Type General Complications none Disposition Disposition: Recovery Room Indications 68 yo female with necrotic LLE wound Description of Procedure The patient was brought to the operating room and underwent general LMA anesthesia without issue. The left lower extremity was prepped and draped in the usual sterile fashion. Appropriate pre-operative antibiotics were administered. A timeout was called. The procedure was verified as Excisional debridement of left lower extremity wound. Surgical, anesthesia and nursing teams agreed and the procedure was begun. The necrotic skin and subcutaneous tissue within the wound was excised using a #10 blade scalpel. Superiorly there was some undermining, so more skin was excised in order to minimize this. We then encountered some old vicryl sutures that were removed. We continued our deeper debridement and her anterior tibialis fascia at the deepest portion of the wound. Healthy bleeding tissue was encountered. More inferiorly in the wound there was slough that was debrided using a curette. The wound was irrigated until clear. At this time hemostasis was achieved using electrocautery. Hemostasis was complete. At this time the wound was dressed with Acticoat and a sterile dressing was applied. Post-debridement measurements were 12cm x 7cm. The above represents and excisional debridement down to muscle/fascia of 84cm2. At this time the patient was awakened from anesthesia and extubated having remained stable throughout the entire case and transported to PACU in stable condition. The physician visitor services assistant was present and scrubbed for the entire case. She was essential in positioning, prepping and draping the patient, retraction and exposure, placement of the dressing. I attest to the content of the Intraoperative Record and any orders documented therein. Any exceptions are noted below.
[2023-08-05] MEDS ORDERED: oxyCODONE/ACETAMINOPHEN 5mg/325mg TAB PO PRN ×2 (08:27)
[2023-08-05] MEDS ORDERED: ATROPINE SULFATE 0.1 MG/ML 10ML SYR IV PRN (08:49)
[2023-08-05] MEDS ORDERED: ONDANSETRON INJ 2 MG/ML 2 ML VIAL IV PRN (08:49)
[2023-08-05] MEDS ORDERED: ePHEDrine sulfate 50 MG/ML AMP IV PRN (08:49)
[2023-08-05] MEDS ORDERED: HYDROmorphone INJ 1 MG/ML SYRINGE IV PRN (08:49)
--- NOTE | 2023-08-05 08:51 | Anesthesiology Progress Note ---
Date of Service August 05, 2023 Anesthesia Post Procedure Vital Signs Vital Signs: Temp Pulse Pulse Pulse Pulse Resp BP 08/05/23 08:40 91 H 12 08/05/23 08:30 36.8 C 95 H 16 08/05/23 06:49 36.8 C 92 H 18 08/04/23 20:03 36.6 C 91 H 18 08/04/23 17:34 36.6 C 80 16 159/96 H 08/04/23 17:08 08/04/23 16:10 85 19 171/95 H 08/04/23 16:01 133/102 H 08/04/23 16:01 88 21 08/04/23 16:00 88 19 08/04/23 15:34 36.6 C 80 16 08/04/23 15:04 89 14 08/04/23 14:02 84 18 08/04/23 14:02 138/111 H 08/04/23 14:00 85 26 H 08/04/23 13:40 82 19 08/04/23 13:34 75 20 08/04/23 13:30 77 22 08/04/23 13:20 74 21 08/04/23 13:10 72 18 08/04/23 13:00 74 19 08/04/23 13:00 148/113 H 08/04/23 12:50 76 20 08/04/23 12:40 78 22 08/04/23 12:35 78 08/04/23 12:30 78 18 08/04/23 12:27 81 16 08/04/23 11:18 36.9 C 99 H 20 183/106 H BP BP Pulse Ox O2 Del Method O2 Flow Rate 08/05/23 08:40 135/97 99 Oxymask 4 08/05/23 08:30 136/88 99 Oxymask 6 08/05/23 06:49 143/78 H 94 Room Air 08/04/23 20:03 117/79 97 Room Air 08/04/23 17:34 97 Room Air 08/04/23 17:08 Room Air 08/04/23 16:10 08/04/23 16:01 97 Room Air 08/04/23 16:01 08/04/23 16:00 08/04/23 15:34 159/96 H 97 Room Air 08/04/23 15:04 08/04/23 14:02 08/04/23 14:02 08/04/23 14:00 85 L 08/04/23 13:40 98 08/04/23 13:34 97 Room Air 08/04/23 13:30 08/04/23 13:20 08/04/23 13:10 08/04/23 13:00 08/04/23 13:00 08/04/23 12:50 08/04/23 12:40 08/04/23 12:35 08/04/23 12:30 08/04/23 12:27 08/04/23 11:18 97 Room Air Pain Intensity Leg: Pain Intensity: 7 Left Lower Leg: Pain Intensity: 9 Transfer of Care Handoff Completed per policy Notes Mental Status: alert / awake / arousable and participated in evaluation Patient Amnestic to Procedure: Yes Nausea / Vomiting: adequately controlled Pain: adequately controlled Airway Patency, RR, SpO2: stable & adequate BP & HR: stable & adequate Hydration State: stable & adequate Anesthetic Complications: no major complications apparent and Pt Satisfied with anesthetic care
[2023-08-05] MEDS: fentaNYL citrate PF 100 MCG/2 ML VIAL IV PRN (08:53)
[2023-08-05] MEDS: fentaNYL citrate PF 100 MCG/2 ML VIAL ONE (08:56)
[2023-08-05] MEDS: CHOLECALCIFEROL 25 MCG (1000 UNITS) TAB PO SCH (12:03)
[2023-08-05] MEDS: FLUTICASONE PROPIONATE NA SPR 16 GM BTL NAE SCH (12:04)
[2023-08-05] MEDS: PANTOprazole 40 MG TAB PO SCH (12:04)
--- NOTE | 2023-08-05 15:57 | Hospitalist Progress Note ---
Date of Service August 05, 2023 Assessment & Plan (1) Traumatic open wound of lower leg with infection: Plan: Left Lower Extremity Wound Secondary to Trauma Failed outpatient Keflex treatment S/P Excisional Debridement of Left Lower Extremity Wound by Dr. Castro on 08/05/23 -- Blood cultures negative to date Continue daptomycin, meropenem Pain control Appreciate surgery input Continue wound care (2) CAD (coronary artery disease): Plan: S/P angioplasty in 2016 chronic, stable Follows with [facility] cardiology Continue ASA, Metoprolol and atorvastatin (3) Morbid obesity: Plan: Lifestyle changes recommended BMI 49 Hyperlipidemia Hold atorvastatin GERD Continue PPI DVT Px: SCDs for now Code Status Full Code Admission and Anticipated Discharge Date Admission Date: August 04, 2023 Subjective Patient is seen and examined Had surgical debridement of wound this morning Denies any significant pain at surgical site Also denies any chest pain, dyspnea, dizziness, nausea, vomiting Family at bedside No other complaints Review of Systems Review of Systems: All systems reviewed & are unremarkable except as noted in Subjective Physical Exam Physical Exam: Physical Exam: Vitals signs as noted above General Appearance:Moderately built and nourished, no apparent distress Head: normocephalic, Atraumatic Eyes: normal inspection, EOMI Neck: supple, Trachea midline Respiratory/Chest: Normal breath sounds, CTA, No accessory muscle use Cardiovascular: S1, S2, No murmur Abdomen/GI:Soft, Non tender, Bowel sounds present Extremities/Musculoskeletal:normal inspection, LLE edema, +urgical site in d ressing Neurologic/Psych:AAOX3, grossly no focal neurological deficits Skin: normal color, warm Results & Data Results & Data Vital Signs (Past 12 Hours) Vital Signs Temp Pulse Pulse Resp BP BP Pulse Ox 08/05/23 15:32 36.8 C 98 H 18 119/76 93 08/05/23 12:04 36.6 C 95 H 16 147/83 H 95 08/05/23 11:21 36.6 C 98 H 16 111/75 98 08/05/23 10:56 08/05/23 10:22 36.5 C 93 H 16 123/81 97 08/05/23 09:51 36.5 C 93 H 18 132/84 98 08/05/23 09:28 36.4 C L 86 18 146/81 H 96 08/05/23 09:10 88 18 138/87 98 08/05/23 09:00 36.7 C 90 12 126/86 97 08/05/23 08:50 98 H 18 152/84 H 99 08/05/23 08:40 91 H 12 135/97 99 08/05/23 08:30 36.8 C 95 H 16 136/88 99 08/05/23 06:49 36.8 C 92 H 18 143/78 H 94 O2 Del Method O2 Flow Rate 08/05/23 15:32 Room Air 08/05/23 12:04 Room Air 08/05/23 11:21 Nasal Cannula 2 08/05/23 10:56 Nasal Cannula 1 08/05/23 10:22 Nasal Cannula 2 08/05/23 09:51 Nasal Cannula 2 08/05/23 09:28 Nasal Cannula 2 08/05/23 09:10 Nasal Cannula 2 08/05/23 09:00 Nasal Cannula 3 08/05/23 08:50 Oxymask 4 08/05/23 08:40 Oxymask 4 08/05/23 08:30 Oxymask 6 08/05/23 06:49 Room Air Laboratory Results Short CBC 08/05/23 Range/Units 05:34 WBC 6.82 (4.8-10.8) K/ul Hgb 11.2 L (12.0-16.0) g/dl Hct 34.4 L (37.0-47.0) % Plt Count 315 (130-400) K/uL BMP 08/05/23 05:34 Sodium 138 Potassium 4.0 Chloride 104 Carbon Dioxide 28 BUN 11 Creatinine 0.71 Glucose 114 H Calcium 8.5 L Cardiac Enzymes 08/05/23 Range/Units 05:34 Total Creatine Kinase 29 (26-192) U/L (1) Traumatic open wound of lower leg with infection Laterality: left
[2023-08-06 07:38] LABS: BUN Creatinine Ratio 21.4 (10-20); Calcium 8.7 mg/dl (8.6-10.3); Creatinine Clr Calc Pharmacy 91.2 ml/min; Est GFR (African American) 104.6 ml/min; Est GFR (Non-African American) 90.3 ml/min; Magnesium 2.1 mg/dl (1.7-2.4); Potassium 4.7 mmol/L (3.5-5.1)
[2023-08-06] MEDS: ASPIRIN 81 MG ECTAB PO SCH (07:39)
[2023-08-06 08:12] LABS: Hematocrit (blood only) 37.1 % (37.0-47.0); Mean Corpuscular Hemoglobin 32.3 pg (25.0-34.0); Mean Corpuscular Hgb Conc 32.3 g/dL (32.0-36.0); Mean Corpuscular Volume 99.7 fL (80.0-100.0); Mean Platelet Volume 9.6 fL (9.4-12.4); Platelet Count 357 K/uL (130-400); RDW Standard Deviation 51.4 fL (36.4-46.3); Red Blood Count 3.72 M/uL (4.20-5.40); White Blood Count 8.03 K/ul (4.8-10.8)
--- NOTE | 2023-08-06 10:08 | Surgery Progress Note ---
Date of Service August 06, 2023 Assessment & Plan (1) Wound of left lower extremity: Plan: POD#1 debridement of LLE wound WBC 8, vitals stable Wound bed evaluated with conjunction with wound care Plan for Aquacel dressing today, can consider wound vac in future Will need wound care follow up as an outpatient If further debridement is indicated you may call our services back Admission and Anticipated Discharge Date Admission Date: August 04, 2023 Supervising Physician Co-Signing Physician Notes I personally saw and evaluated the patient with Yi Chacon PA-C and agree with the assessment and plan. 68 yo female with left lower extremity necrotic wound, post-debridement day 1 Her wound was evaluated at bedside with wound care nursing team Overall wound looks good and they will take over care starting with Aquacel Ag for now She will need to follow-up with the wound care clinic when she has an outpatient for further treatment Surgery will sign off at this time, Please call with any questions or concerns I can see her if a surgical debridement is seemed necessary as an outpatient Subjective Patient feeling well. Offers no complaints Physical Exam Physical Exam: awake/alert, no distress Respiratory: normal respiratory effort Skin: LLE wound to anterior calf, erythema improving but present. wound bed moist Results & Data Vital Signs (Past 12 Hours) Vital Signs Temp Pulse Pulse Resp BP Pulse Ox O2 Del Method 08/06/23 08:20 97.7 F 64 18 132/86 96 Room Air 08/05/23 23:24 97.3 F L 86 20 142/74 H 96 Room Air PG Care Time/CCT Total # of Minutes Spent Total Time Spent with Patient: Total time spent is greater than 50% in coordination of care (as documented) at patient's floor/unit and/or counseling patient: Coding Level of Care Code 87461 Post Operative Follow-Up Diagnoses Wound of left lower extremity S81.802A
[2023-08-06] MEDS ORDERED: diphenhydrAMINE HCL 25 MG/10 ML UDC PO PRN (15:08)
--- NOTE | 2023-08-06 16:59 | Hospitalist Progress Note ---
Date of Service August 06, 2023 Assessment & Plan (1) Traumatic open wound of lower leg with infection: Plan: Left Lower Extremity Wound Secondary to Trauma Failed outpatient Keflex treatment S/P Excisional Debridement of Left Lower Extremity Wound by Dr. Castro on 08/05/23 -- Blood cultures negative to date Continue daptomycin, meropenem for now Pain control Appreciate surgery input Continue wound care Needs follow-up with wound clinic on discharge May need wound VAC placement Surgery following (2) CAD (coronary artery disease): Plan: S/P angioplasty in 2016 chronic, stable Follows with [facility] cardiology Continue ASA, Metoprolol and atorvastatin (3) Morbid obesity: Plan: Lifestyle changes recommended BMI 49 Hyperlipidemia Hold atorvastatin GERD Continue PPI DVT Px: Heparin SQ Code Status Full Code Admission and Anticipated Discharge Date Admission Date: August 04, 2023 Subjective Patient is seen and examined Denies any significant pain at surgical site Patient's family at bedside Offers no new complaints Denies any chest pain, dyspnea, dizziness, nausea, vomiting Review of Systems Review of Systems: All systems reviewed & are unremarkable except as noted in Subjective Physical Exam Physical Exam: Physical Exam: Vitals signs as noted above General Appearance:Moderately built and nourished, no apparent distress Head: normocephalic, Atraumatic Eyes: normal inspection, EOMI Neck: supple, Trachea midline Respiratory/Chest: Normal breath sounds, CTA, No accessory muscle use Cardiovascular: S1, S2, No murmur Abdomen/GI:Soft, Non tender, Bowel sounds present Extremities/Musculoskeletal:normal inspection, LLE edema, +urgical site in dressing Neurologic/Psych:AAOX3, grossly no focal neurological deficits Skin: normal color, warm Results & Data Results & Data Vital Signs (Past 12 Hours) Vital Signs Temp Pulse Pulse Resp BP Pulse Ox O2 Del Method 08/06/23 15:36 36.5 C 85 18 127/85 96 Room Air 08/06/23 11:21 36.4 C L 64 18 122/62 96 Room Air 08/06/23 08:20 36.5 C 64 18 132/86 96 Room Air Laboratory Results Short CBC 08/06/23 08/06/23 Range/Units 06:34 07:53 WBC Cancelled 8.03 Hgb Cancelled 12.0 Hct Cancelled 37.1 Plt Count Cancelled 357 BMP 08/06/23 06:34 Sodium 139 Potassium 4.7 Chloride 104 Carbon Dioxide 30 BUN 15 Creatinine 0.70 Glucose 120 H Calcium 8.7 (1) Traumatic open wound of lower leg with infection Laterality: left
[2023-08-06] MEDS: HEPARIN SOD 5,000 UNIT/0.5 ML VIAL SQ SCH (20:44)
[2023-08-07 07:27] LABS: Hematocrit (blood only) 34.8 % (37.0-47.0); Hemoglobin 11.7 g/dl (12.0-16.0); Mean Corpuscular Hemoglobin 33.1 pg (25.0-34.0); Mean Corpuscular Hgb Conc 33.6 g/dL (32.0-36.0); Mean Corpuscular Volume 98.6 fL (80.0-100.0); Mean Platelet Volume 9.6 fL (9.4-12.4); Platelet Count 360 K/uL (130-400); RDW Coefficient of Variation 14.2 % (11.5-14.5); Red Blood Count 3.53 M/uL (4.20-5.40); White Blood Count 6.08 K/ul (4.8-10.8)
[2023-08-07 07:44] LABS: BUN Creatinine Ratio 30.1 (10-20); Calcium 8.7 mg/dl (8.6-10.3); Creatinine Clr Calc Pharmacy 87.5 ml/min; Est GFR (African American) 99.5 ml/min; Est GFR (Non-African American) 85.8 ml/min; Potassium 4.2 mmol/L (3.5-5.1)
--- NOTE | 2023-08-07 10:53 | Infectious Disease Consult ---
Date of Service August 07, 2023 Telehealth Information I performed this visit using a real-time telehealth connection between my location and the patients location ([facility]). After connecting through interactive tele-video, patient was identified by name and date of and/or wristband check.Patient (or authorized healthcare event representative) was informed that this was a telemedicine visit and it was being conducted confidentially over secure lines. My office door was closed and no on e else was present in the room with me.Patient (or authorized healthcare event representative) provided consent to proceed with the visit, expressed an understanding of privacy and security of the telemedicine visit, and gave permission to have a hospital event representative in the room in order to assist with the visit and to conduct portions of the visit, as needed. I informed the patient (or authorized healthcare event representative) that I reviewed their record and presented the opportunity for them to ask any questions regarding the visit today. The patient agreed to participate. Assessment & Plan (1) Traumatic open wound of lower leg with infection: Plan: Impression: Infected traumatic wound on L leg despite keflex Morbide obesity Hx of allergy to PCN (hives; tolerated keflex), sulfa (GI symptoms) 08/05/23 wound debridement Recommendations: - Unfortunately, no culture was sent from the OR to guide abx therapy - Stop clindamycin, meropenem and daptomycin iv - Start linezolid 600 mg po bid and moxifloxacin 400 mg po qd for 10 more days - Continue aggressive wound care and close f/u w/ wound care as outpatient - Probiotic while on abx therapy More than 50% of [id number] visit was spent counseling and coordinating care pertaining to the patient's infection diagnosis, additional work-up, and treatment option(s) as well as potential adverse events of the treatment. History of Present Illness History of Present Illness This is a 68 y/o morbid obese female (Mayra), who presented to [facility] on 08/04/23 for infection post LLE laceration after getting her foot stuck in her husbands truck and hitting her lower left anterior leg into the chacha running board while trying to climb up into the truck. She was initially seen at [facility] on where laceration repair was performed (no obvious nerve or tendon damage noted at that time) w/ tetanus shot and a course of keflex (no rash). She developed swelling, redness (above L ankle to below L knee) and worsening pain in L leg, especially for 2 days prior to [facility] presentation, w/ some purulent drainage. No fever or leukocytosis on presentation. Physical exam revealed a large chronic wound on L medial lower leg w/ necrotic tissues in the upper half of the wound base and surrounding erythema. CT LE showed findings compatible w/ gas forming infection in the antermedial soft tissue of the leg w/o drainable collection or evidence of OM. She had wound debridement by surgery on 08/05/23: necrotic skin, subcutaneous tissue and muscle fascia. She is currently on clindamycin, meropenem and daptomycin iv. The patient states she has little pain, yet, improved from admission. Denies n/v, abd pain, diarrhea (but soft), coughing, chest pain, sob, or urinary symptoms. She had itching and rash to PCN in her 20s. , Cornel, at bedside. Allergies Allergy/AdvReac Type Severity Reaction Status Date / Time Penicillins Allergy Intermediate ITCHY HIVES Verified 08/04/23 14:01 sulfamethoxazole AdvReac Intermediate GI SYMPTOMS Verified 08/04/23 14:01 trimethoprim AdvReac Intermediate GI SYMPTOMS Verified 08/04/23 14:01 Home Medications Medication Instructions Recorded Confirmed Type ascorbic acid (vitamin C) 500 mg 1,000 mg PO QAM 12/09/19 08/04/23 History tablet (Vitamin C) aspirin 81 mg tablet,delayed 81 mg PO QAM 12/09/19 08/04/23 History release atorvastatin 80 mg tablet 80 mg PO HS 12/09/19 08/04/23 History cholecalciferol (vitamin D3) 25 25 mcg PO QAM 12/09/19 08/04/23 History mcg (1,000 unit) tablet (Vitamin D3) fluticasone propionate 50 1 spray intranasal QAM 12/09/19 08/04/23 History mcg/actuation nasal spray,suspension (Flonase Allergy Relief) loratadine 10 mg tablet (Claritin) 10 mg PO QAM 12/09/19 08/04/23 History nitroglycerin 0.4 mg sublingual 0.4 mg sublingual DIRECTED PRN 12/09/19 08/04/23 History tablet (Nitrostat) Chest Pain ifdipgtyzcbr-lwpfplhi-tlnaxk tablet 1 tab PO DAILY 06/15/23 08/04/23 History zinc gluconate 50 mg tablet 50 mg PO DAILY 06/15/23 08/04/23 History alprazolam 0.25 mg tablet (Xanax) 0.25 mg PO Q24H PRN Anxiety 08/04/23 08/04/23 History cephalexin 500 mg capsule 500 mg PO QID 08/04/23 08/04/23 History lansoprazole 30 mg capsule,delayed 30 mg PO QAM 08/04/23 08/04/23 History release metoprolol tartrate 25 mg tablet 25 mg PO BID 08/04/23 08/04/23 History Patient History Medical History CAD (coronary artery disease) Intramural leiomyoma of uterus Angiolipoma of right kidney Cough OCC/ONGOING/NO CHANGE IN BASELINE Hx of fracture of ankle LT, no sx. History of COVID-19 01/2021, not hospitalized, covid pneumonia, cough Hx of cardiac arrest 2015, f/u Dr. Maynard ([facility]) Hyperlipidemia Hypertension History of coronary artery disease Surgical History (Updated 08/06/23 @ 13:21 by Sharifa Casillas, DESIRE) S/P excisional debridement (08/05/23) Excisional Debridement of Left Lower Extremity Wound 12cm x 7cm Down to Muscle/Fascia - Saul Castro DO History of left cataract surgery OCTOBER 2021 Hx of cardiac catheterization w/angioplasty, 2015, blockage 80%, medical management Hx of eye surgery rt. as a baby Hx of cholecystectomy Family History Mother Family history of diabetes mellitus Colorectal cancer Father Family history of diabetes mellitus Social History (Updated 08/04/23 @ 17:54 by Sakina Sanders DO) Smoking Status: Never smoker Tobacco Type: Cigarettes Second Hand Exposure: No; Do You Dip or Chew Tobacco: No; Hx Alcohol Use: No Hx Substance Use: No Preferred Language: Jordanian Communication Ability: Effective Hop Separator Required: No Beliefs That Will Affect Care: None marital status: Current Living Situation: Spouse Current Living Situation Comment: Lives with Cornel Feels Safe at Home: Yes Assistive Devices: Cane, Lift Chair and Walker Review of Systems as HPI and all others negative Physical Exam Gen: no acute distress Lungs: breathing comfortably in on room air Ext: clean dressing on L leg, no erythema in 1/3 proximal L leg, well below the demarcation made on admission, dressing was not removed during this encounter as picture was available in chart Results & Data Vital Signs (Past 12 Hours) Vital Signs Temp Pulse Resp BP Pulse Ox O2 Del Method 08/07/23 07:30 36.5 C 80 20 161/88 H 95 Room Air Laboratory Results WBC 6.08K H 11.7 Plt 360K Cr 0.73 Blood cx (08/04/23): NGTD XR tibia/fibula: Soft tissue swelling compatible with cellulitis. There are foci of lucency in the medial leg concerning for gas-forming infection No evidence of osteomyelitis. Diagnostic Findings CT LE: Findings compatible with gas forming infection in the anteromedial soft tissues of the leg. No drainable abscess is seen. No bony erosions to suggest osteomyelitis Medications Administered She is currently on clindamycin, meropenem and daptomycin iv. (1) Traumatic open wound of lower leg with infection Laterality: left
[2023-08-07] MEDS: LINEZOLID 600 MG TAB PO SCH (13:06)
[2023-08-07] MEDS: MOXIFLOXACIN / 0.8% SALINE 400 MG/250 ML BAG IV SCH (13:07)
[2023-08-07] MEDS: ADVANCED PROBIOTIC 625 MG CAPSULE PO SCH (13:57)
--- NOTE | 2023-08-07 14:03 | Hospitalist Progress Note ---
Date of Service August 07, 2023 Assessment & Plan (1) Traumatic open wound of lower leg with infection: Plan: Left Lower Extremity Wound Secondary to Trauma Failed outpatient Keflex treatment S/P Excisional Debridement of Left Lower Extremity Wound by Dr. Castro on 08/05/23 -- Blood cultures negative to date She was seen and evaluated by ID on 08/06 who recommended stopping clindamycin, meropenem and daptomycin. Recommendation was to start linezolid 600 mg p.o. twice daily and moxifloxacin 400 mg once daily for 10 more days. Aggressive wound care and close follow-up as outpatient is recommended. Daily probiotic added Pain control Appreciate surgery input, they are now signed off of this wound needs further debridement Continue wound care Discussed with wound care nurse Gina who established appointment for patient on 08/15 At 1300 May need wound VAC placement in future Discussed with case management who has arranged outpatient home health which will be established later this week until patient is able to get frequent wound care @ wound clinic (2) CAD (coronary artery disease): Plan: S/P angioplasty in 2016 chronic, stable Follows with [facility] cardiology Continue ASA, Metoprolol and atorvastatin (3) Morbid obesity: Plan: Lifestyle changes recommended BMI 49 Hyperlipidemia resume atorvastatin now that off dapto GERD Continue PPI DVT Px: Heparin SQ Code Status Full Code Dispo: plan to trial antibiotic regimen today, CM to arrange Home health for dressing changes, nurse at bedside to also assist in wound teaching, Plan for D/C Tomorrow 08/07 PCP: Maritza Garg PA-C, Dr. Merritt office Pt was seen and examined in collaboration with Dr. Pierce, please see addendum A total of 55 minutes was spent coordinating, documenting, and providing care for this patient excluding time spent in the performance of separately billed services. This included personally viewing all current laboratories and imaging studies, medication reconciliation, outpatient chart review, and discussion with specialists. Admission and Anticipated Discharge Date Admission Date: August 04, 2023 Supervising Physician Co-Signing Physician Notes Patient is seen and examined at bedside. No significant left leg wound pain. Discussed with patient's family at bedside. Blood cultures negative to date. Discussed with ID today. Physical Exam: Vitals signs as noted above General Appearance:Moderately built and nourished, no apparent distress Head: normocephalic, Atraumatic Eyes: normal inspection, EOMI Neck: supple, Trachea midline Respiratory/Chest: Normal breath sounds, CTA, No accessory muscle use Cardiovascular: S1, S2, No murmur Abdomen/GI:Soft, Non tender, Bowel sounds present Extremities/Musculoskeletal:normal inspection, LLE edema, +urgical site in dressing Neurologic/Psych:AAOX3, grossly no focal neurological deficits Skin: normal color, warm Left Lower Extremity Wound Secondary to Trauma Failed outpatient Keflex treatment S/P Excisional Debridement of Left Lower Extremity Wound by Dr. Castro on 08/05/23 Daptomycin, meropenem transition to moxifloxacin, Zyvox Appreciate ID input Needs follow-up with wound clinic, surgery on discharge I personally interviewed and examined at bedside. Patient's care is coordinated with Anne Marie Plummer PA-C. I have reviewed the advanced practitioner's documentation, and I agree with, and take responsibility for that plan of care. Please refer to the documentation above for details of patient's presentation and for discussion of other issues. I spent a total [id number] coordinating, documenting, and providing care for this patient excluding time spent in the performance of separately billed services. Subjective Patient was seen and examined in 386. Follow-up left lower extremity traumatic wound. Her is at bedside who also helps elicit history. She offers no acute concerns today. She currently has a dressing to her left lower extremity. She denies pain, fever, chills, sweats, lightheadedness, dizziness, chest pain, shortness of breath, nausea, vomiting or abdominal pain. She is tolerating diet. She is passing gas and moving bowels. She was seen and evaluated by infectious disease today. She was scheduled to be seen at the wound clinic today; however due to being hospitalized she missed this appointment. Review of Systems Review of Systems: All systems reviewed & are unremarkable except as noted in HPI & below Physical Exam Physical Exam: Gen: WD/WN, NAD, A&O x3 HEENT: Normocephalic, atraumatic, conjunctivae moist, sclerae anicteric, mucous membranes moist. Lung: Clear to Auscultation bilaterally, no wheezes/rales/rhonchi Heart: Regular rate, regular rhythm, no murmurs, rubs, or gallops Abdomen: Soft, NT, ND +BS x 4 Extremities: Trace to +1 edema left lower extremity, left pretibial area dressing CDI Skin: Warm, no rash, negative turgor. Wound pictures visualized from 08/05 Results & Data Results & Data Vital Signs (Past 12 Hours) Vital Signs Temp Pulse Resp BP Pulse Ox O2 Del Method 08/07/23 11:21 36.3 C L 67 18 147/97 H 96 Room Air 08/07/23 07:30 36.5 C 80 20 161/88 H 95 Room Air Laboratory Results Short CBC 08/07/23 Range/Units 06:55 WBC 6.08 (4.8-10.8) K/ul Hgb 11.7 L (12.0-16.0) g/dl Hct 34.8 L (37.0-47.0) % Plt Count 360 (130-400) K/uL BMP 08/07/23 06:55 Sodium 140 Potassium 4.2 Chloride 105 Carbon Dioxide 30 BUN 22 Creatinine 0.73 Glucose 108 H Calcium 8.7 Medications Administered Current Inpatient Medications Acetaminophen (Acetaminophen 325 Mg Tab) 650 mg PO Q4H PRN PRN Reason: Pain or Fever Stop: 09/03/23 17:44 Last Admin: 08/07/23 04:39 Dose: 650 mg Alprazolam (Alprazolam 0.25 Mg Tablet) 0.25 mg PO Q24H PRN PRN Reason: Anxiety Stop: 09/03/23 18:07 Aspirin (Aspirin 81 Mg Ectab) 81 mg PO QAM COLBY Stop: 09/05/23 08:59 Last Admin: 08/07/23 08:04 Dose: 81 mg Atorvastatin Calcium (Atorvastatin 40 Mg Tab) 80 mg PO HS [facility] Stop: 09/03/23 20:59 Last Admin: 08/04/23 21:52 Dose: 80 mg Diphenhydramine HCl (Diphenhydramine Hcl 25 Mg/10 Ml Udc) 25 mg PO Q6H PRN PRN Reason: Allergy Symptoms Stop: 09/05/23 15:07 Fluticasone Propionate (Fluticasone Propionate Na Spr 16 Gm Btl) 1 sprays JB QAM COLBY Stop: 09/04/23 08:59 Last Admin: 08/07/23 09:47 Dose: 1 sprays Heparin Sodium (Porcine) (Heparin Sod 5,000 Unit/0.5 Ml Vial) 5,000 units SQ Q1 2 COLBY Stop: 09/05/23 20:59 Last Admin: 08/07/23 08:05 Dose: 5,000 units Clindamycin Phosphate (Cleocin/D5w) 600 mg in 50 mls @ 100 mls/hr IV Q8H COLBY Stop: 08/11/23 15:59 Last Infusion: 08/07/23 07:56 Dose: Infused Moxifloxacin/Sodium Chloride (Avelox / 0.8% Saline) 400 mg in 250 mls @ 250 mls/hr IV DAILY@1100 [facility] Stop: 08/08/23 11:59 Last Admin: 08/07/23 13:07 Dose: 250 mls/hr Lactobacillus Acidophilus (Advanced Probiotic 625 Mg Capsule) 1,250 mg PO DAILY COLBY Stop: 09/06/23 12:59 Linezolid (Linezolid 600 Mg Tab) 600 mg PO BID [facility] Stop: 08/17/23 12:29 Last Admin: 08/07/23 13:06 Dose: 600 mg Metoprolol Tartrate (Metoprolol Tartrate 25 Mg Tab) 25 mg PO BID COLBY Stop: 09/03/23 20:59 Last Admin: 08/07/23 08:04 Dose: 25 mg Pantoprazole Sodium (Pantoprazole 40 Mg Tab) 40 mg PO QAM COLBY Stop: 09/04/23 08:59 Last Admin: 08/07/23 08:04 Dose: 40 mg Polyethylene Glycol (Polyethylene (Miralax) 17 Gm Pack) 17 gm PO DAILY PRN PRN Reason: Constipation Stop: 09/03/23 17:44 Vitamin D (Cholecalciferol 25 Mcg (1000 Units) Tab) 25 mcg PO QAM COLBY Stop: 09/04/23 08:59 Last Admin: 08/07/23 08:02 Dose: Not Given (1) Traumatic open wound of lower leg with infection Laterality: left
--- NOTE | 2023-08-08 12:33 | Discharge Summary ---
Discharge Summary Date of Service August 08, 2023 Notes For Next Care Provider Patient hospitalized secondary to traumatic wound of left lower leg. She required surgical debridement by Dr. Saul Castro. She requires antibiotics for additional 10 days. She will require frequent att ention at the [facility] wound clinic. Medication Changes From Visit Linezolid 600 mg twice daily for additional 10 days, next dose due evening of Moxifloxacin (Avelox) 400 mg once daily for additional 10 days, next dose due 08/09/2023 Admission HPI Per Admitting Provider 68-year-old female presented for left lower extremity laceration after getting her foot stuck in her 's truck and hitting her lower left anterior leg into the chacha running board while trying to climb up into the truck. Traumatic laceration was evaluated at [facility] ER on 07/20/2023. At that time she had no associated symptoms of fever chills. She was hypertensive and in severe p ain. Laceration was repair was performed with no muscle damage nerve damage or tendon damage noted. She did receive a tetanus shot and a dose of Keflex in the ER and was sent home with a course of keflex. She presents today with swelling redness and pain in the left leg has been increasing for the past 2 days. She reports seeing her primary care physician 2 days ago with removal of the stitches. At that time her provider thought she might have some pus drainage and sent a wound culture. These results are not available for review. She was started on a second course of Keflex 2 days ago. In the ER today no purulent discharge or significant foul odor was noted. There was tenderness primarily around the wound and anterior aspect of the calf but no posterior knee or calf tenderness. There is some numbness to her left foot which is cooler to touch than the right. She denies any fevers or chills and reports eating and drinking without issue. She has been managing her pain with Tylenol and refuses anything stronger than this at the moment. is at bedside and assists with the history. He said that the erythema around her wound started spreading up and down from her wound and there was increased drainage from the wound, which is covered with a large layer of eschar. There is some gauze that is now stuck in the wound around the eschar. Her left lower leg is warmer to touch where the skin is red. The wound is several cm in diameter across the front of her distal leg. Admission Exam Per Admitting Provider CONSTITUTIONAL: obese, vitals as above, generally well-appearing EYES: normal conjunctivae, no scleral icterus ENT: external ear and nose normal, MMM NECK: trachea midline RESPIRATORY: clear to auscultation bilaterally, no crackles, rales or wheezes, normal respiratory effort CARDIOVASCULAR: regular rate and rhythm, S1 and 2 heard without murmurs, ga llops or rubs, no JVD, no peripheral edema CHEST: inspection of chest was normal GASTROINTESTINAL: soft, nontender, ND, no guarding MUSCULOSKELETAL: strength 5/5 throughout, head is normocephalic and atraumatic SKIN: warm and dry, LLE anterior wound that is approx 10 cm across and with large area of eschar and some serous drainage. NEUROLOGIC: No facial palsy, no dysarthria. CN 2-12 grossly intact, +numbness in foot reported on left but no sensory deficit when compared to left, normal cognition, normal speech, no tremor PSYCHIATRIC: alert cooperative and oriented to person, place and time. Euthymic mood, makes good eye contact, language grossly intact, recent and remote memory grossly intact. Principal Dx & Hospital Course #1 = Principal Diagnosis (1) Traumatic open wound of lower leg with infection: Left Lower Extremity Wound Secondary to Trauma Failed outpatient Keflex treatment S/P Excisional Debridement of Left Lower Extremity Wound by Dr. Castro on 08/05/23 -- Blood cultures negative to date She was seen and evaluated by ID on 08/06 who recommended stopping clindamycin, meropenem and daptomycin. Recommendation was to start linezolid 600 mg p.o. twice daily and moxifloxacin 400 mg once daily for 10 more days. Aggressive wound care and close follow-up as outpatient is recommended. Daily probiotic added Continue wound care - has been educated and taught how to dress wound daily with nurse at bedside. Nurse Durand feels is competent to do so. Home health will be arranged; however, until home health can see the patient will be able to do daily dressing Wound clinic follow-up on 08/15 At 1300 May need wound VAC placement in future (2) CAD (coronary artery disease): S/P angioplasty in 2016 chronic, stable Follows with [facility] cardiology Continue ASA, Metoprolol and atorvastatin (3) Morbid obesity: Lifestyle changes recommended BMI 49 Hyperlipidemia resume atorvastatin now that off dapto GERD Continue PPI Dispo: Patient is currently tolerating antibiotic regimen. She will be disc harged on oral antibiotics today along with close wound care follow-up. PCP: Maritza Garg PA-C, Dr. Merritt office Pt was seen and examined in collaboration with Dr. Pierce, please see addendum A total of 45 minutes was spent coordinating, documenting, and providing care for this patient excluding time spent in the performance of separately billed services. This included personally viewing all current laboratories and imaging studies, medication reconciliation, outpatient chart review, and discussion with specialists. Discharge Exam Gen: WD/WN, NAD, A&O x3 HEENT: Normocephalic, atraumatic, conjunctivae moist, sclerae anicteric, mucous membranes moist. Lung: Clear to Auscultation bilaterally, no wheezes/rales/rhonchi Heart: Regular rate, regular rhythm, no murmurs, rubs, or gallops Abdomen: Soft, NT, ND +BS x 4 Extremities: Trace to +1 edema left lower extremity, left pretibial area dressing CDI Skin: Warm, no rash, negative turgor. Wound pictures visualized from 08/05 Updated Medication List Medication Instructions Recorded Confirmed Type ascorbic acid (vitamin C) 500 mg 1,000 mg PO QAM 12/09/19 08/04/23 History tablet (Vitamin C) aspirin 81 mg tablet,delayed 81 mg PO QAM 12/09/19 08/04/23 History release atorvastatin 80 mg tablet 80 mg PO HS 12/09/19 08/04/23 History cholecalciferol (vitamin D3) 25 25 mcg PO QAM 12/09/19 08/04/23 History mcg (1,000 unit) tablet (Vitamin D3) fluticasone propionate 50 1 spray intranasal QAM 12/09/19 08/04/23 History mcg/actuation nasal spray,suspension (Flonase Allergy Relief) loratadine 10 mg tablet (Claritin) 10 mg PO QAM 12/09/19 08/04/23 History nitroglycerin 0.4 mg sublingual 0.4 mg sublingual DIRECTED PRN 12/09/19 08/04/23 History tablet (Nitrostat) Chest Pain vfpepwiapspc-mwzbtqyk-vpojvv tablet 1 tab PO DAILY 06/15/23 08/04/23 History zinc gluconate 50 mg tablet 50 mg PO DAILY 06/15/23 08/04/23 History alprazolam 0.25 mg tablet (Xanax) 0.25 mg PO Q24H PRN Anxiety 08/04/23 08/04/23 History lansoprazole 30 mg capsule,delayed 30 mg PO QAM 08/04/23 08/04/23 History release metoprolol tartrate 25 mg tablet 25 mg PO BID 08/04/23 08/04/23 History L.acidop,casei,lactis,rham-B.lact,destin 1 cap PO DAILY #10 caps 08/08/23 Rx 625 mg (10 billion cell) capsule (Advanced Probiotic) linezolid 600 mg tablet 600 mg PO BID 10 days #20 tabs 08/08/23 Rx moxifloxacin 400 mg tablet 400 mg PO DAILY 10 days #10 tabs 08/08/23 Rx Hospital Stay Data Consultations 08/04/23 14:10 Consult General Surgery Stat 08/04/23 15:31 ED Decision to Admit Stat 08/04/23 15:54 Consult Infectious Diseases Routine Procedures Performed Operation Date: 08/05/23 07:45 Actual Procedures p Excisional Debridement of Left Lower Extremity Wound 12cm x 7cm Down to Muscle/Fascia(Left) - Saul Castro, Diagnostic Imagining Performed Tibia/Fibula X-Ray 08/04/23 11:57 XR tibia fibula LT 2V CLINICAL HISTORY: leg wound, cellulitis TECHNIQUE: 2 radiographic views of the left leg were obtained. Comparison: None available at the time of this dictation. FINDINGS: There is no evidence of an acute fracture. Joint spaces are well-preserved. Soft tissue swelling is seen. Focal lucencies are seen in the medial mid leg. IMPRESSION: Soft tissue swelling compatible with cellulitis. There are foci of lucency in the medial leg concerning for gas-forming infection No evidence of osteomyelitis. ACT 112: Negative or not required by law. Electronically signed by: Jeb Anders M.D. 08/04/2023 1:[address] 08/04/23 14:10 CT tib/fib LT w con CLINICAL HISTORY: leg wound infection, eval nec fasc TECHNIQUE: Multidetector row helical CT of the left tibia and fibula was performed without intravenous contrast. Coronal and sagittal reformations were obtained. Automated dose lowering techniques and/or adjustment according to patient size were utilized for this examination. CT DOSE: 334.52 mGy.cm Comparison: Comparison is made to CT tibia and fibula 08/04/2023 FINDINGS: The osseous structures are without fracture or dislocation. The joint spaces are maintained. No joint effusion is seen. Soft tissue swelling is seen. There is subcutaneous emphysema in the anteromedial leg under the region of bandage. No drainable fluid collection. IMPRESSION: Findings compatible with gas forming infection in the anteromedial soft tissues of the leg. No drainable abscess is seen. No bony erosions to suggest osteomyelitis. ACT 112: Negative or not required by law. Electronically signed by: Jeb Anders M.D. 08/04/2023 3:11 PM Pending Results Patient Have Any Pending Studies at Discharge: No Discharge Instructions Given to Patient (Per Discharging Provider) MEDICATION CHANGES: Linezolid 600 mg twice daily for additional 10 days, next dose due evening of 08/08/2023 Moxifloxacin (Avelox) 400 mg once daily for additional 10 days, next dose due 08/09/2023 Probiotic once daily for additional 10 days. Please continue all other medications as prescribed. SUMMARY OF TEST RESULTS: You were hospitalized secondary to atraumatic wound to your left leg. He was seen and evaluated by general surgery who debrided the wound. Your wound appears infected and you were seen and evaluated by infectious disease who recommended your antibiotics for discharge. You have to do daily wound dressing changes. Your has been taught how t o do these dressings. You are being set up with home health. You will need to follow-up with wound clinic at discharge. PENDING TEST RESULTS: none RECOMMENDATIONS FOR FOLLOW-UP: Please complete antibiotics in its entirety. Please follow-up with your primary care provider within 1 week of discharge. Please follow-up with wound clinic as scheduled. Take all other medications as prescribed. When seated keep your left leg elevated. Wound care instructions to the left lower leg: * Irrigate with saline and a 35 cc syringe and an 18-gauge blunt needle, pat dry * Gently placed aquacel AG to the tunneling at 12:00 ensuring to leave a tail * Apply Aquacel Ag to remaining wound bed, cover with ABD and secure with Kerlix * Change dressing daily or as needed for increased drainage * Follow-up with wound clinic August 15 at 1 PM, wound center phone number is [phone] OTHER INSTRUCTIONS: Seek medical attention if you have: * temperature above 101 * chest pain or trouble breathing * abdominal pain, nausea, vomiting * diarrhea, dark stools or bloody stools * any unanswered questions or concerns Call 911 if symptoms are severe. Please take good care of yourself. It has been a pleasure taking care of you. Please take care of yourself. If you have any questions regarding your recent hospitalization please contact [facility] and request Alicia Augustine @ [phone]. Anne Marie Plummer PA-C Total Time Total Time Spent Total Time Spent (In Minutes): 45 minutes Supervising Physician Co-Signing Physician Notes Patient is seen and examined at bedside. Had leg wound dressing change today. Offers no new complaints today. Plan to be discharged home today. Physical Exam: Vitals signs as noted above General Appearance:Moderately built and nourished, no apparent distress Head: normocephalic, Atraumatic Eyes: normal inspection, EOMI Neck: supple, Trachea midline Respiratory/Chest: Normal breath sounds, CTA, No accessory muscle use Cardiovascular: S1, S2, No murmur Abdomen/GI:Soft, Non tender, Bowel sounds present Extremities/Musculoskeletal:normal inspection, LLE edema, +urgical site in dressing Neurologic/Psych:AAOX3, grossly no focal neurological deficits Skin: normal color, warm Left Lower Extremity Wound Secondary to Trauma Failed outpatient Keflex treatment S/P Excisional Debridement of Left Lower Extremity Wound by Dr. Castro on 08/05/23 Daptomycin, meropenem transition to moxifloxacin, Zyvox on discharge to complete the antibiotic course Appreciate ID input Pain is well-controlled Advised to follow-up with PCP, wound clinic on discharge I personally interviewed and examined at bedside. Patient's care is coordinated with Anne Marie Plummer PA-C. I have reviewed the advanced practitioner's documentation, and I agree with, and take responsibility for that plan of care. Please refer to the documentation above for details of patient's presentation and for discussion of other issues. I spent a total [id number] coordinating, documenting, and providing care for this patient excluding time spent in the performance of separately billed services. Home Health Attestation I certify that this patient is under my care and that I, or a physicians day care assistant working with me, had a face to-face encounter that meets the home health [id number] encounter requirements with this patient. The encounter with the patient was in whole, or in part, for the following medical condition, which is the primary reason for home health care (list medical condition): I certify that, based on my findings, the following services are medically necessary home health services: My clinical findings support the need for the above services because: Further, I certify that my clinical findings support that this patient is homebound (i.e. absences from home require considerable and taxing effort and are for medical reasons or hindu services or infrequently or of short dur ation when for other reasons) because: Certification for Home Health Services: Based on the above findings, I certify that this patient is confined to the home and needs intermittent shelter care, physical therapy and/or speech therapy or continues to need occupational therapy. The patient is under my care, and I have initiated the establishment of the plan of care. This patient will be followed by a physician who will periodically review the plan of care.
== END 2023-08-08 13:36 | disposition home health service (06) | DRG 580 ==
LOC: ED 11:02 → 3N 15:33 → SUATTDRO 15:33 → 3N 17:08

== ENCOUNTER 2023-12-22 12:03 | Inpatient (IN) ==
--- OUTSIDE RECORDS SUMMARY | 2023-12-22 12:16 | External Medical Summary ---
Author Name UNSPECIFIED Address Unknown Organization [facility] History of Encounters Reason for Assessment: Recertification ( follow-up) reassessment Functional Assessment Current Ability: Bathing: Able to bathe in shower or tub with the intermittent assistance of another person: (a) for intermittent supervision or encouragement or reminders, OR (b) to get in and out of the shower or tub, OR (c) for washing difficult to reach areas. Current Ability: Ambulation: Requires us e of a two-handed device (e.g., walker or crutches) to walk alone on a level surface and/or requires human supervision or assistance to negotiate stairs or steps or uneven surfaces.
--- OUTSIDE RECORDS SUMMARY | 2023-12-22 12:16 | External Medical Summary | Summary of Care ---
Author Name Unknown Organization [facility] Address [address] [place] [address] Phone [phone] Care Team Providers Care Drug Room Operator Name Role Phone Dioni Akers PA-C Primary Care Provide r Reason for Visit * Reason Onset Date Comments Appointment 09/24/2023 Encounter Details Date Type Department Care Team (Late st Contact Info) Description 09/24/2023 Telephone Care at Home [address] [place] [address] Services, Scheduling [address] [place] [address] Appointment Allergies Active Allergy Reactions Criticality Noted Date Comments Sulfamethoxazole-Trimethoprim Nausea/vomiting Medium 0 10/23/2015 Penicillins Hives High 10/23/2015 documented as of this encounter (statuses as of 09/24/2023) Medications Medication Sig Dispensed Refills Start Date [...] the morning. 100 Tablet 5 03/21/2023 Active Additional Information Patient taking differently: 25 mgOralBID (.AM/PM), Reported on 08/17/2023 documented as of this encounter (statuses as of 09/24/2023) Active Problems Problem Noted Date Diagnosed Date Coronary artery disease invo lving [place] coronary artery of [place] heart without angina pectoris 01/06/2016 Dyslipidemia, goal LDL below 70 01/06/2016 Non morbid obesity due to excess calories 2015 documented as of this encounter (statuses as of 09/24/2023) Immunizations Name Administration Dates Next Due TDAP [...] on file documented as of this encounter Miscellaneous Notes * Telephone Encounter - Nora Ledezma OSA - 09/24/2023 11:13 AM EDT [facility] Home Outreach Call attempt: 1st Call Call result: Call Unsuccessful - Declined enrollment Patient does not wish to have a HV or video for AWV. MELISSA Rosenthal documented in this encounter Plan of Treatment Health Maintenance Due Date Last Done Comments COVID-19 Vaccine (#1) 1962 Depression Screening 1969 Hepatitis C Screening 1975 Mammogram 1997 Cologuard 2002 Colonoscopy 2002 Colorectal Cancer Screening 2002 Fecal Occult Blood Test 2002 Sigmoidoscopy 2002 Zoster Vaccines (1 of 2) 2007 DXA Scan 2022 Pneumococcal Vaccine: 65+ Years (1 of 1 - PCV) 2022 Diabetes Screening 10/12/2023 10/11/2020, 1 , 10/22/2019, Additional history exists Influenza Vaccine (FLU shot) (Season Ended) 2024 DTaP,Tdap,and Td Vaccines (2 - Td or [...] Not on filedocumented as of this encounter Care Teams Drug Room Operator Relationship Specialty Start Date End Date Dioni Akers PA-C PCP - General Physician Floor Covering Printer 04/25/18 documented as of this encounter
--- OUTSIDE RECORDS SUMMARY | 2023-12-22 12:16 | External Medical Summary ---
Author Name UNSPECIFIED Address Unknown Organization [facility] History of Encounters Reason for Assessment: Recertification ( follow-up) reassessment Functional Assessment Current Ability: Bathing: Able to bathe in shower or tub with the intermittent assistance of another person: (a) for intermittent supervision or encouragement or reminders, OR (b) to get in and out of the shower or tub, OR (c) for washing difficult to reach areas. Current Ability: Ambulation: With the us e of a one-handed device (e.g. cane, single crutch, joshua-walker), able to independently walk on even and uneven surfaces and negotiate stairs with or without railings.
[2023-12-22 13:00] LABS: Basophils # (auto) 0.02 K/uL (0.00-0.20); Basophils % (auto) 0.4 %; Eosinophils # (auto) 0.28 K/uL (0.00-0.50); Eosinophils % (auto) 5.9 %; Hematocrit (blood only) 40.8 % (37.0-47.0); Hemoglobin 13.5 g/dl (12.0-16.0); Immature Granulocytes # (auto) 0.01 K/uL (0.01-0.20); Immature Granulocytes % (auto) 0.2 %; Mean Corpuscular Hgb Conc 33.1 g/dL (32.0-36.0); Mean Corpuscular Volume 96.7 fL (80.0-100.0); Mean Platelet Volume 10.4 fL (9.4-12.4); Monocytes # (auto) 0.68 K/uL (0.11-0.59); Monocytes % (auto) 14.2 %; Neutrophils # (auto) 2.69 K/uL (1.40-6.50); Neutrophils % (auto) 56.3 %; Platelet Count 235 K/uL (130-400); RDW Coefficient of Variation 13.7 % (11.5-14.5); RDW Standard Deviation 48.8 fL (36.4-46.3); Red Blood Count 4.22 M/uL (4.20-5.40); White Blood Count 4.78 K/ul (4.8-10.8)
[2023-12-22 13:16] LABS: Albumin Globulin Ratio 1.2 (0.9-2); Albumin Level 3.9 gm/dl (3.4-5.0); BUN Creatinine Ratio 16.9 (10-20); Bilirubin,Total 0.4 mg/dl (0.2-1.0); Calcium 9.4 mg/dl (8.6-10.3); Creatinine Clr Calc Pharmacy 88.7 ml/min; Est GFR (African American) 102.9 ml/min; Est GFR (Non-African American) 88.8 ml/min; Globulin 3.3 gm/dl (2.5-4.0); Potassium 3.8 mmol/L (3.5-5.1); Total Protein 7.2 gm/dl (6.0-8.3)
[2023-12-22] MEDS: cefTRIAXone SODIUM 2,000 MG/50 ML BAG IV STA (13:57)
[2023-12-22] MEDS: diphenhydrAMINE 50 MG/ML VIAL IV STA (15:54)
[2023-12-22] MEDS: SODIUM CHLORIDE 0.9% 1,000 ML IV SCH (15:55)
--- NOTE | 2023-12-22 16:12 | History & Physical Report ---
Date of Service December 22, 2023 Assessment & Plan (1) Cellulitis of left leg: (2) CAD (coronary artery disease): (3) Hypertension: (4) Hyperlipidemia: Plan Ms. Turner is a 68 year old female that presents to the ED today with worsening redness and itching on her LLE. She has a known LLE s/p trauma (she was getting into her car and she caught her leg on her husbands tool box getting into the car) that occurred in June 2023 and underwent surgical debridement under the care of Dr. Castro on 08/05/23 in [place] and she was started on oral Clindamycin and acetic acid soaks. She was discharged home and her wound continued to bleed. She had arterial duplex studies performed on 09/18/2023. No arterial occlusion or high-grade stenosis identified. She has two outpatient wound cultures: * 10/03/23: Staph MRSA * 11/13: Staph MRSA Additional PMH includes HTN, HLD and anxiety. She does report having an NSTEMI in 2016. LLE cellulitis: Delayed wound healing: Chronic LLE s/p trauma in Jun 2023. underwent surgical debridement under the care of Dr. Castro on 08/05/23 in [place] Recently discharged from outpatient wound last week arterial duplex studies performed on 09/18/2023. No arterial occlusion or high-grade stenosis identified. circumfrencial erythema LLE anterior/posterior calloway She has two outpatient wound cultures: * 10/03/23: Staph MRSA * 11/13: Staph MRSA Completed Oral Clindamycin course and acetic acid soaks No Leukocytpsis, no fever Started on Ceftriaxone in ED; will switch to Dapto (instead of Vanco) given her BMI to cover for MRSA. Does not have any pets. Denies any history of clots or stroke. WOCN order placed CAD: H/O NSTEMI: Chronic takes baby ASA; continue Follows with Cardiology as an outpatient; next appointment is 2015. HTN: Chronic Takes Metoprolol; continue HLD: Chronic takes Simvastatin; continue Disposition: PCP: Dioni Akers PA-C Code Status: Full VTE Prophylaxis: Lovenox SQ I spent a total of 82 minutes coordinating, documenting, and providing care for this patient excluding time spent in the performance of separately billed services. All of the aforementioned completed while collaborating with the assigned attending physician for a full treatment plan. Please see their addendum for further details. History of Present Illness Chief Complaint: RLE cellulitis Primary Care Provider: Maritza Garg PA-C Ms. Turner is a 68 year old female that presents to the ED today with worsening redness and itching on her LLE. She has a known LLE s/p trauma (she was getting into her car and she caught her leg on her husbands tool box getting into the car) that occurred in June 2023 and underwent surgical debridement under the care of Dr. Castro on 08/05/23 in [place] and she was started on oral Clindamycin and acetic acid soaks. She was discharged home and her wound continued to bleed. She had arterial duplex studies performed on 09/18/2023. No arterial occlusion or high-grade stenosis identified. She has been following with outpatient wound and was discharged last week. Yesterday she noticed that her leg became more red and warm to touch. She has two outpatient wound cultures: * 10/03/23: Staph MRSA * 11/13: Staph MRSA Additional PMH includes HTN, HLD and anxiety. She does report having an NSTEMI in 2016. Follows with Cardiology as an outpatient; next appointment is 2016. Does not have any pets. Denies any history of clots or stroke. No leukocytosis, and otherwise labs unremarkable. Patient will be admitted for further evaluation and management for her LLE cellulitis. Please see A/P for further details. Allergies Allergy/AdvReac Type Severity Reaction Status Date / Time Penicillins Allergy Intermediate ITCHY HIVES Verified 12/22/23 15:47 sulfamethoxazole AdvReac Intermediate GI SYMPTOMS Verified 12/22/23 15:47 trimethoprim AdvReac Intermediate GI SYMPTOMS Verified 12/22/23 15:47 Home Medications Medication Instructions Recorded Confirmed Type ascorbic acid (vitamin C) 500 mg 1,000 mg PO QAM 12/09/19 12/22/23 History tablet (Vitamin C) aspirin 81 mg tablet,delayed 81 mg PO QAM 12/09/19 12/22/23 History release atorvastatin 80 mg tablet 80 mg PO HS 12/09/19 12/22/23 History cholecalciferol (vitamin D3) 25 25 mcg PO QAM 12/09/19 12/22/23 History mcg (1,000 unit) tablet (Vitamin D3) fluticasone propionate 50 1 spray intranasal QAM 12/09/19 12/22/23 History mcg/actuation nasal spray,suspension (Flonase Allergy Relief) loratadine 10 mg tablet (Claritin) 10 mg PO QAM 12/09/19 12/22/23 History nitroglycerin 0.4 mg sublingual 0.4 mg sublingual DIRECTED PRN 12/09/19 12/22/23 History tablet (Nitrostat) Chest Pain zinc gluconate 50 mg tablet 50 mg PO DAILY 06/15/23 12/22/23 History alprazolam 0.25 mg tablet (Xanax) 0.25 mg PO Q24H PRN Anxiety 08/04/23 12/22/23 History lansoprazole 30 mg capsule,delayed 30 mg PO QAM 08/04/23 12/22/23 History release metoprolol tartrate 25 mg tablet 25 mg PO BID 08/04/23 12/22/23 History L.acidop,casei,lactis,rham-B.lact,destin 1 cap PO DAILY #10 caps 08/08/23 12/22/23 Rx 625 mg (10 billion cell) capsule (Advanced Probiotic) Past Med/Surg History Problem List Hyperlipidemia Hypertension Abnormal ankle brachial index CAD (coronary artery disease) Morbid obesity Traumatic open wound of lower leg with infection (Acute) Wound of left lower extremity Cellulitis of left leg Lesion of uterus Renal mass COVID-19 (Acute) Shoulder pain, left (Acute) Shoulder pain, left (Acute) NSTEMI, initial episode of care Fracture of 5th metatarsal (Acute) Cellulitis of leg, right (Acute) History of coronary artery disease Medical History Intramural leiomyoma of uterus Angiolipoma of right kidney Cough OCC/ONGOING/NO CHANGE IN BASELINE Hx of fracture of ankle LT, no sx. History of COVID-19 01/2021, not hospitalized, covid pneumonia, cough Hx of cardiac arrest 2016, f/u Dr. Maynard ([facility]) Surgical History S/P excisional debridement (08/05/23) Excisional Debridement of Left Lower Extremity Wound 12cm x 7cm Down to Muscle/Fascia - Saul Castro DO History of left cataract surgery OCTOBER 2021 Hx of cardiac catheterization w/angioplasty, 2015, blockage 80%, medical management Hx of eye surgery rt. as a baby Hx of cholecystectomy Family History Mother Family history of diabetes mellitus Colorectal cancer Father Family history of diabetes mellitus Social History Smoking Status: Never smoker Tobacco Type: Cigarettes Second Hand Exposure: No; Do You Dip or Chew Tobacco: No; Hx Alcohol Use: No Hx Substance Use: No Preferred Language: Scottish Communication Ability: Effective Visual Impairment: Limited Hearing Ability: Normal Unit Trust Manager Required: No Beliefs That Will Affect Care: None marital status: Current Living Situation: Spouse Current Living Situation Comment: Lives with Cornel Feels Safe at Home: Yes Diet: regular Assistive Devices: Cane, Lift Chair and Walker Review of Systems Review of Systems: Neuro: (-) Falls, trauma, slurred speech HEENT: (-) BERMUDEZ, dizziness, dysphagia, visual or auditory changes CV: (-) CP, palpitations, swelling Resp: (-) SOB GI: (-) appetite changes, N/V/D, bowel changes : (-) urinary changes Skin: (-) rashes(+) redness LLE Musculoskeletal: (-) neuropathy Psych: (-) anxiety, depression Physical Exam Physical Exam: Neuro: AAOx4, PERRLA, no aphagia, memory changes, CNII-XII grossly intact HEENT: head normocephalic, moist mucus membranes CV: S1/S2, (-) M/G/R, (-) edema, cap refill < 3 seconds Resp: Lungs CTA in all ibarra. On RA GI: Abdomen S/NT/ND, Ax4 bowel sounds, (-) CVA tenderness Musculoskeletal: 5/5 B/L UE strength, 5/5 B/L LE strength. No gait disturbance Skin: (-) rashes , (+) circumfrencial erythema LLE posterior and anterior calf. Anterior dime-sized wound that is healed. Psych: euthymic mood Results & Data Results & Data Vital Signs (Past 12 Hours) Vital Signs Temp Pulse Pulse Resp BP BP Pulse Ox 12/22/23 15:49 77 16 149/90 H 100 12/22/23 14:30 78 12/22/23 13:54 36.4 C 78 19 124/70 98 12/22/23 12:30 36.9 C 87 18 170/102 H 95 O2 Del Method 12/22/23 15:49 Room Air 12/22/23 14:30 12/22/23 13:54 Room Air 12/22/23 12:30 Room Air Laboratory Results Short CBC 12/22/23 Range/Units 12:40 WBC 4.78 L (4.8-10.8) K/ul Hgb 13.5 (12.0-16.0) g/dl Hct 40.8 (37.0-47.0) % Plt Count 235 (130-400) K/uL [facility] 12/22/23 12:40 Sodium 139 Potassium 3.8 Chloride 103 Carbon Dioxide 31 BUN 12 Creatinine 0.71 Glucose 104 H Calcium 9.4 Liver Function 12/22/23 Range/Units 12:40 Total Bilirubin 0.4 (0.2-1.0) mg/dl AST 30 (13-39) U/L ALT 32 (7-52) U/L Alkaline Phosphatase 96 (34-104) U/L Albumin 3.9 (3.4-5.0) gm/dl Diagnostic Findings Short CBC 12/22/23 Range/Units 12:40 WBC 4.78 L (4.8-10.8) K/ul Hgb 13.5 (12.0-16.0) g/dl Hct 40.8 (37.0-47.0) % Plt Count 235 (130-400) K/uL [facility] 12/22/23 12:40 Sodium 139 Potassium 3.8 Chloride 103 Carbon Dioxide 31 BUN 12 Creatinine 0.71 Glucose 104 H Calcium 9.4 Liver Function 12/22/23 Range/Units 12:40 Total Bilirubin 0.4 (0.2-1.0) mg/dl AST 30 (13-39) U/L ALT 32 (7-52) U/L Alkaline Phosphatase 96 (34-104) U/L Albumin 3.9 (3.4-5.0) gm/dl Code Status & VTE Plan Code Status Full Code in the event of cardiac or respiratory arrest Supervising Physician Co-Signing Physician Notes Patient was seen and examined with Lesley CAMPBELL at bedside. Chart reviewed. Case discussed with Lesley CAMPBELL and agree with the documentation above. In summary, this is a 68 year old female with prior history of left leg trauma s/p debride ment Jun 2023 with MRSA wound infections who presented to the ED with left leg cellulitis for 1 day. No fever, chills. Non toxic. LLE noted with diffuse erythema, no purulence. Given her history of MRSA, will start on daptomycin. Cellulitis already marked. Monitor for improvement. Rest as per the note above.
[2023-12-22] MEDS ORDERED: VANCOMYCIN HCL 2,250 MG in SODIUM CHLORIDE 0.9% 500 ML IV ONE (16:21)
[2023-12-22] MEDS ORDERED: VANCOMYCIN CONSULT ACTIVE PRN (16:21)
[2023-12-22] MEDS: DAPTOmycin 300 MG in SYRINGE 0 ML IV SCH (16:51)
[2023-12-22] MEDS ORDERED: ALPRAZolam 0.25 MG TABLET PO PRN (17:59)
[2023-12-22] MEDS: METOPROLOL TARTRATE 25 MG TAB PO SCH (20:27)
[2023-12-22] MEDS ORDERED: ATORVASTATIN 40 MG TAB PO SCH (21:00)
[2023-12-23 04:32] LABS: Hematocrit (blood only) 37.2 % (37.0-47.0); Mean Corpuscular Hemoglobin 31.3 pg (25.0-34.0); Mean Corpuscular Hgb Conc 32.3 g/dL (32.0-36.0); Mean Corpuscular Volume 96.9 fL (80.0-100.0); Mean Platelet Volume 10.2 fL (9.4-12.4); Platelet Count 219 K/uL (130-400); RDW Coefficient of Variation 13.3 % (11.5-14.5); RDW Standard Deviation 48.3 fL (36.4-46.3); Red Blood Count 3.84 M/uL (4.20-5.40); White Blood Count 4.38 K/ul (4.8-10.8)
[2023-12-23 04:51] LABS: BUN Creatinine Ratio 14.5 (10-20); Calcium 8.3 mg/dl (8.6-10.3); Creatinine Clr Calc Pharmacy 91.2 ml/min; Est GFR (African American) 105.1 ml/min; Est GFR (Non-African American) 90.7 ml/min; Potassium 3.8 mmol/L (3.5-5.1)
--- NOTE | 2023-12-23 08:35 | Emergency Department Note ---
Impression & Plan Cellulitis of left leg ED Provider Note CHIEF COMPLAINT: LLE infection HISTORY OF PRESENT ILLNESS: This 68 yo female patient With a past medical history of coronary artery disease, morbid obesity, chronic wound of left lower extremity post trauma, Hypertension and hyperlipidemia presents to the emergency department Complaints of 24 hours of worsening redness and discomfort to the left lower extremity. Patient said she has a chronic wound from a laceration in June 2023. She was followed by the wound care clinic and recently discharged. The patient is not had any fever, significant pain or drainage from the area. She denies any recurrent injury. No history of DVT. REVIEW OF SYSTEMS: A review of systems was performed with positives and pertinent negatives listed in the history of present illness. 10 systems were reviewed and are otherwise negative. ALLERGIES: see below MEDICATIONS: see below PMH: see below SOCIAL HISTORY: see below DDx: Cellulitis, DVT, trauma, venous stasis, abscess among others. PHYSICAL EXAM: Vital signs reviewed. General: Well-appearing 68 yo female, in no significant distress. HEENT: No scleral icterus, PERRLA, neck supple. MMM. Cardiovascular: Regular rate and rhythm, no extra sounds. Pulmonary: Clear to auscultation bilaterally, normal work of breathing. Abdomen: Soft, obese, nontender, nondistended, positive bowel sounds. Musculoskeletal: Atraumatic, no peripheral edema. Neurologic: Patient awake alert and oriented x 3, speech is clear Skin: Warm, dry, LLL with erythema, warmth from ankle to proximal thigh, anterior calloway wound appears to be healed. No drainage. EMERGENCY DEPARTMENT COURSE/MDM: This pt was evaluated and appeared to be in no distress. IV access was obtained and lab work was drawn. Pt was medicated with IV ceftriaxone 2 gm and hydrated with NSS. Lab work reveals a mild leukopenia, otherwise reassuring. Pt was reevaluated and doing well, we discussed the need for admission as the cellulitis tracks to proximal lower extremity. The hospitalist service was contacted, ADRIAN Verma, who accepted the patient for admission under Dr. Hameed. Pt and were made aware of the plan and agreed. MONITORING: An order for cardiac monitoring was placed and the patient is noted to be in a NSR at 78 beats per minute. DISPOSITION: Admit Past Med/Surg History Problem List (Updated 12/23/23 @ 09:05 by Komal Jay MD) Abnormal ankle brachial index CAD (coronary artery disease) Morbid obesity Traumatic open wound of lower leg with infection (Acute) Wound of left lower extremity Cellulitis of left leg (Acute) Lesion of uterus Renal mass COVID-19 (Acute) Hyperlipidemia Hypertension History of coronary artery disease Shoulder pain, left (Acute) Shoulder pain, left (Acute) NSTEMI, initial episode of care Fracture of 5th metatarsal (Acute) Cellulitis of leg, right (Acute) Medical History Pre-diabetes Intramural leiomyoma of uterus Angiolipoma of right kidney Cough OCC/ONGOING/NO CHANGE IN BASELINE Hx of fracture of ankle LT, no sx. History of COVID-19 01/2021, not hospitalized, covid pneumonia, cough Hx of cardiac arrest 2016, f/u [facility]. Maynard ([facility]) Surgical History S/P excisional debridement (08/05/23) Excisional Debridement of Left Lower Extremity Wound 12cm x 7cm Down to Muscle/Fascia - Saul Castro, DO History of left cataract surgery OCTOBER 2021 Hx of cardiac catheterization w/angioplasty, 2015, blockage 80%, medical management Hx of eye surgery rt. as a baby Hx of cholecystectomy Family History Mother Family history of diabetes mellitus Colorectal cancer Father Family history of diabetes mellitus Social History Smoking Status: Never smoker Tobacco Type: Cigarettes Second Hand Exposure: No; Do You Dip or Chew Tobacco: No; Hx Alcohol Use: No Hx Substance Use: No Preferred Language: Northern Irish Communication Ability: Effective Visual Impairment: Limited Hearing Ability: Normal Family Practice Md Required: No Beliefs That Will Affect Care: None marital status: Current Living Situation: Spouse Current Living Situation Comment: Lives with Cornel Feels Safe at Home: Yes Safety Concerns: Feels Safe At This Time Diet: regular Assistive Devices: Glasses Allergies Allergies Allergy/AdvReac Type Severity Reaction Status Date / Time Penicillins Allergy Intermediate ITCHY HIVES Verified 12/22/23 15:47 sulfamethoxazole AdvReac Intermediate GI SYMPTOMS Verified 12/22/23 15:47 trimethoprim AdvReac Intermediate GI SYMPTOMS Verified 12/22/23 15:47 Home Meds Home Medications Medication Instructions Recorded Confirmed ascorbic acid (vitamin C) 500 mg 1,000 mg PO QAM 12/09/19 12/22/23 tablet (Vitamin C) aspirin 81 mg tablet,delayed 81 mg PO QAM 12/09/19 12/22/23 release atorvastatin 80 mg tablet 80 mg PO HS 12/09/19 12/22/23 cholecalciferol (vitamin D3) 25 25 mcg PO QAM 12/09/19 12/22/23 mcg (1,000 unit) tablet (Vitamin D3) fluticasone propionate 50 1 spray intranasal QAM 12/09/19 12/22/23 mcg/actuation nasal spray,suspension (Flonase Allergy Relief) loratadine 10 mg tablet (Claritin) 10 mg PO QAM 12/09/19 12/22/23 nitroglycerin 0.4 mg sublingual 0.4 mg sublingual DIRECTED PRN 12/09/19 12/22/23 tablet (Nitrostat) Chest Pain zinc gluconate 50 mg tablet 50 mg PO DAILY 06/15/23 12/22/23 alprazolam 0.25 mg tablet (Xanax) 0.25 mg PO Q24H PRN Anxiety 08/04/23 12/22/23 lansoprazole 30 mg capsule,delayed 30 mg PO QAM 08/04/23 12/22/23 release metoprolol tartrate 25 mg tablet 25 mg PO BID 08/04/23 12/22/23 Previous Rx's Medication Instructions Recorded L.acidop,casei,lactis,rham-B.lact,destin 1 cap PO DAILY #10 caps 08/08/23 625 mg (10 billion cell) capsule (Advanced Probiotic) Results & Data (ED) Vital Signs Vital Signs - 24 hr 12/22/23 12:30 12/22/23 13:54 12/22/23 14:30 Temperature 36.9 C 36.4 C Temperature Source Temporal Artery Scan Oral Pulse Rate 87 78 Pulse Rate [Apical] 78 Respiratory Rate 18 19 Respiratory Effort / Characteristics Non-Labored Spontaneous Non-Labored Spontaneous Respiratory Depth Normal Normal Respiratory Pattern Regular Blood Pressure 170/102 H Blood Pressure [Left Arm] 124/70 Blood Pressure Mean 124 Blood Pressure Mean [Left Arm] 88 Blood Pressure Position Sitting Blood Pressure Position [Left Arm] Semi-fowlers Pulse Oximetry 95 98 Oxygen Delivery Method Room Air Room Air Sepsis Recent Fever Within 48 Hours No Sepsis New/Unexplained Change in Mental Status N/A Sepsis Action Taken by Nursing No Action Required 12/22/23 15:49 12/22/23 17:30 Temperature Temperature Source Pulse Rate Pulse Rate [Apical] 77 85 Respiratory Rate 16 18 Respiratory Effort / Characteristics Non-Labored Spontaneous Non-Labored Respiratory Depth Normal Normal Respiratory Pattern Regular Blood Pressure Blood Pressure [Left Arm] 149/90 H 141/91 H Blood Pressure Mean Blood Pressure Mean [Left Arm] 109 107 Blood Pressure Position Blood Pressure Position [Left Arm] Semi-fowlers Semi-fowlers Pulse Oximetry 100 99 Oxygen Delivery Method Room Air Room Air Sepsis Recent Fever Within 48 Hours Sepsis New/Unexplained Change in Mental Status Sepsis Action Taken by Penitentiary Medications Current Medication List: was personally reviewed by me Laboratory Data Attestation: I reviewed the patient's lab results. 12/23/23 04:15 12/23/23 04:15 Lab Results 12/22/23 Range/Units 12:40 WBC 4.78 L (4.8-10.8) K/ul RBC 4.22 (4.20-5.40) M/uL Hgb 13.5 (12.0-16.0) g/dl Hct 40.8 (37.0-47.0) % MCV 96.7 (80.0-100.0) fL MCH 32.0 (25.0-34.0) pg MCHC 33.1 (32.0-36.0) g/dL RDW Std Deviation 48.8 H (36.4-46.3) fL RDW Coeff of Aimee 13.7 (11.5-14.5) % Plt Count 235 (130-400) K/uL MPV 10.4 (9.4-12.4) fL Immature Gran % (Auto) 0.2 % Neut % (Auto) 56.3 % Lymph % (Auto) 23.0 % Door % (Auto) 14.2 % Eos % (Auto) 5.9 % Baso % (Auto) 0.4 % Neut # (Auto) 2.69 (1.40-6.50) K/uL Lymph # (Auto) 1.10 L (1.20-3.40) K/uL Door # (Auto) 0.68 H (0.11-0.59) K/uL Eos # (Auto) 0.28 (0.00-0.50) K/uL Baso # (Auto) 0.02 (0.00-0.20) K/uL Immature Gran # (Auto) 0.01 (0.01-0.20) K/uL Sodium 139 (136-145) mmol/L Potassium 3.8 (3.5-5.1) mmol/L Chloride 103 (98-107) mmol/L Carbon Dioxide 31 (21-32) mmol/L Anion Gap 5 (3-11) BUN 12 (6-23) mg/dl Creatinine 0.71 (0.6-1.2) mg/dl Est Cr Clr Drug Dosing 88.7 ml/min Est GFR ( Amer) 102.9 ml/min Est GFR (Non-Af Amer) 88.8 ml/min BUN/Creatinine Ratio 16.9 (10-20) Glucose 104 H (70-99(Fasting)) mg/dl Calcium 9.4 (8.6-10.3) mg/dl Total Bilirubin 0.4 (0.2-1.0) mg/dl AST 30 (13-39) U/L ALT 32 (7-52) U/L Alkaline Phosphatase 96 (34-104) U/L Total Protein 7.2 (6.0-8.3) gm/dl Albumin 3.9 (3.4-5.0) gm/dl Globulin 3.3 (2.5-4.0) gm/dl Albumin/Globulin Ratio 1.2 (0.9-2) Administered Medications Sodium Chloride (Nss) 1,000 mls @ 125 mls/hr IV .Q8H COLBY Stop: 01/21/24 15:44 Last Admin: 12/23/23 00:40 Dose: 125 mls/hr Documented By: Infusion: 12/23/23 00:39 Dose: Infused Documented By: Admin: 12/22/23 15:55 Dose: 125 mls/hr Documented By: HENRI Daptomycin 300 mg/ Syringe 6 mls @ 3 mls/min IV Q24H COLBY; Protocol Stop: 12/29/23 16:59 Last Admin: 12/22/23 16:51 Dose: 3 mls/min Documented By: Metoprolol Tartrate (Metoprolol Tartrate 25 Mg Tab) 25 mg PO BID COLBY Stop: 01/21/24 20:59 Last Admin: 12/22/23 20:27 Dose: 25 mg Documented By: RAHEEL Discontinued Medications Diphenhydramine HCl (Diphenhydramine 50 Mg/Ml Vial) 25 mg IV NOW STA Stop: 12/22/23 15:37 Last Admin: 12/22/23 15:54 Dose: Not Given Documented By: HENRI Ceftriaxone Sodium (Rocephin) 2,000 mg in 50 mls @ 100 mls/hr IV NOW STA Stop: 12/22/23 13:52 Last Infusion: 12/22/23 15:30 Dose: Infused Documented By: Admin: 12/22/23 13:57 Dose: 100 mls/hr Documented By: HENRI Discharge Plan Visit Data Chief Complaint: Leg Injury/Pain Stated Complaint: CELLULITIS, LT LEG HAD A CUT ED Provider: Komal Jay Discharge Problem: Cellulitis of left leg Discharge Instructions Interventions: ED Discharge Assessment Last Done: 12/22/23 18:39
[2023-12-23] MEDS: ASCORBIC ACID 500 MG TAB PO SCH (09:01)
[2023-12-23] MEDS: ASPIRIN 81 MG ECTAB PO SCH (09:01)
[2023-12-23] MEDS: FLUTICASONE PROPIONATE NA SPR 16 GM BTL SCH (09:02)
[2023-12-23] MEDS: LORATADINE 10 MG TAB PO SCH (09:03)
[2023-12-23] MEDS: CHOLECALCIFEROL 25 MCG (1000 UNITS) TAB PO SCH (09:03)
[2023-12-23] MEDS: ADVANCED PROBIOTIC 625 MG CAPSULE PO SCH (09:03)
[2023-12-23] MEDS: PANTOprazole 40 MG TAB PO SCH (09:04)
--- NOTE | 2023-12-23 11:39 | Hospitalist Progress Note ---
Date of Service December 23, 2023 Assessment & Plan (1) Cellulitis of left leg: (2) CAD (coronary artery disease): (3) Hypertension: (4) Hyperlipidemia: Plan Ms. Turner is a 68 year old female with PMHx significant for HTN, HLD, anxiety, NSTEMI in 2015 that presents to the ED with worsening redness and itching on her LLE. She has a known LLE s/p trauma (she was getting into her car and she caught her leg on her husbands tool box getting into the car) that occurred in June 2023 and underwent surgical debridement under the care of Dr. Castro on 08/05/23 in [place] and she was started on oral Clindamycin and acetic acid soaks. She was discharged home and her wound continued to bleed. She had arterial duplex studies performed on 09/18/2023. No arterial occlusion or high-grade stenosis identified. She has two outpatient wound cultures: * 10/03/23: Staph MRSA * 11/13: Staph MRSA LLE cellulitis Chronic wound LLE LLE s/p trauma in Jun 2023. underwent surgical debridement under the care of Dr. Castro on 08/05/23 in [facility] Recently discharged from outpatient wound last week arterial duplex studies performed on 09/18/2023. No arterial occlusion or high- grade stenosis identified. circumferential erythema LLE anterior/posterior calloway She has two outpatient wound cultures: * 10/03/23: Staph MRSA * 11/13: Staph MRSA Completed Oral Clindamycin course and acetic acid soaks No Leukocytosis, no fever Started on Ceftriaxone in ED; will switch to Dapto (instead of Vanco) given her BMI to cover for MRSA. Does not have any pets. Denies any history of clots or stroke. WOCN order placed MRI LLE ordered to r/o osteomyelitis- pt refusing at this time noting anxiety Infectious Disease consulted Continue with IV Daptomycin at this time Continue to monitor CAD: H/O NSTEMI: Chronic takes baby ASA; continue Follows with Cardiology as an outpatient HTN: Chronic Takes Metoprolol; continue HLD: Chronic takes Simvastatin;holding while on dapto Diet: regular Disposition: PT/OT ordered for further recs Code Status: Full VTE Prophylaxis: Lovenox SQ Admission and Anticipated Discharge Date Admission Date: December 22, 2023 Subjective Pt seen multiple times during the day. Initially seen with at bedside. States that she cannot do an MRI, noting tremendous anxiety with an attempt before. Asking for anxiety med to help. Later called back as pt states that she cannot go through with the mri. sisters and at bedside. States that even with the Ativan she would be unable to do it. Review of Systems Review of Systems: All systems reviewed & are unremarkable except as noted in Subjective Physical Exam Physical Exam: General: Alert, oriented. Skin: left leg with scabbed wound and noted erythema Psych: Appropriate mood and affect Neuro: No gross deficits while laying in bed HEENT: NC/AT CV: RRR Resp: Breath sounds clear bilaterally, no increased effort of breathing. Abdomen:Soft, nontender, nondistended. Extremities: left leg with scabbed wound and noted erythema Results & Data Results & Data Vital Signs (Past 12 Hours) Vital Signs Temp Pulse Pulse Pulse Resp BP BP 12/23/23 11:00 36.3 C L 79 16 151/90 H 12/23/23 10:18 82 15 138/74 12/23/23 09:51 87 12/23/23 06:00 65 20 141/75 H 12/23/23 03:41 76 12/23/23 02:47 63 18 155/91 H 12/23/23 01:47 84 18 131/84 12/23/23 01:21 69 18 Pulse Ox O2 Del Method 12/23/23 11:00 99 Room Air 12/23/23 10:18 95 Room Air 12/23/23 09:51 12/23/23 06:00 97 Room Air 12/23/23 03:41 12/23/23 02:47 94 Room Air 12/23/23 01:47 97 Room Air 12/23/23 01:21 96
[2023-12-23] MEDS: LORazepam 0.5 MG in SYRINGE 0.25 ML IV STA (15:37)
[2023-12-24 08:32] LABS: Basophils # (auto) 0.02 K/uL (0.00-0.20); Basophils % (auto) 0.4 %; Eosinophils # (auto) 0.22 K/uL (0.00-0.50); Eosinophils % (auto) 4.9 %; Hematocrit (blood only) 38.8 % (37.0-47.0); Hemoglobin 12.6 g/dl (12.0-16.0); Immature Granulocytes # (auto) 0.02 K/uL (0.01-0.20); Immature Granulocytes % (auto) 0.4 %; Lymphocytes # (auto) 1.24 K/uL (1.20-3.40); Lymphocytes % (auto) 27.7 %; Mean Corpuscular Hemoglobin 31.3 pg (25.0-34.0); Mean Corpuscular Hgb Conc 32.5 g/dL (32.0-36.0); Mean Corpuscular Volume 96.5 fL (80.0-100.0); Mean Platelet Volume 10.1 fL (9.4-12.4); Monocytes # (auto) 0.55 K/uL (0.11-0.59); Monocytes % (auto) 12.3 %; Neutrophils # (auto) 2.42 K/uL (1.40-6.50); Neutrophils % (auto) 54.3 %; Platelet Count 241 K/uL (130-400); RDW Coefficient of Variation 13.5 % (11.5-14.5); RDW Standard Deviation 48.8 fL (36.4-46.3); Red Blood Count 4.02 M/uL (4.20-5.40); White Blood Count 4.47 K/ul (4.8-10.8)
[2023-12-24 08:45] LABS: BUN Creatinine Ratio 13.7 (10-20); Calcium 8.3 mg/dl (8.6-10.3); Creatinine Clr Calc Pharmacy 87.5 ml/min; Est GFR (African American) 99.5 ml/min; Est GFR (Non-African American) 85.8 ml/min; Potassium 3.8 mmol/L (3.5-5.1)
[2023-12-24] MEDS: OXYMETAZOLINE 0.05% 30 ML BTL ONE (11:17)
--- NOTE | 2023-12-24 15:40 | Hospitalist Progress Note ---
Date of Service December 24, 2023 Assessment & Plan (1) Cellulitis of left leg: (2) CAD (coronary artery disease): (3) Hypertension: (4) Hyperlipidemia: Plan Ms. Turner is a 68 year old female with PMHx significant for HTN, HLD, anxiety, NSTEMI in 2015 that presents to the ED with worsening redness and itching on her LLE. She has a known LLE s/p trauma (she was getting into her car and she caught her leg on her husbands tool box getting into the car) that occurred in June 2023 and underwent surgical debridement under the care of Dr. Castro on 08/05/23 in [place] and she was started on oral Clindamycin and acetic acid soaks. She was discharged home and her wound continued to bleed. She had arterial duplex studies performed on 09/18/2023. No arterial occlusion or high-grade stenosis identified. She has two outpatient wound cultures: * 10/03/23: Staph MRSA * 11/13: Staph MRSA LLE cellulitis Chronic wound LLE LLE s/p trauma in Jun 2023. underwent surgical debridement under the care of Dr. Castro on 08/05/[address] [facility] Recently discharged from outpatient wound last week arterial duplex studies performed on 09/18/2023. No arterial occlusion or high- grade stenosis identified. circumferential erythema LLE anterior/posterior calloway She has two outpatient wound cultures: * 10/03/23: Staph MRSA * 11/13: Staph MRSA Completed Oral Clindamycin course and acetic acid soaks No Leukocytosis, no fever Started on Ceftriaxone in ED; will switch to Dapto (instead of Vanco) given her BMI to cover for MRSA. Does not have any pets. Denies any history of clots or stroke. WOCN order placed MRI LLE ordered to r/o osteomyelitis- pt refusing at this time noting anxiety Infectious Disease consulted, appreciate recs. Recommended/stated the following: "Patient with MRSA twice from that area in the past few months. Underlying osteomyelitis a concern, though exam shows that the wound appears closed at this time. No fevers or leukocytosis to suggest uncontrolled infection. Plan: Consider MRI of extremity. If this shows no concerns with the bone, then she could be converted to linezolid 600mg po bid x 7 more days. If the MRI suggests osteomyelitis, then we will likely need more prolonged IV therapy (6 weeks) plus surgical evaluation. Final abx plans remain pending." Pt continues to refuse MRI at this time- per ID Dr Chavez, can d/c with po abx if she continues to refuse Continue with IV Daptomycin at this time Continue to monitor Epistaxis One episode on 12/23 Afrin nurse protocol ordered Monitor H/H CAD: H/O NSTEMI: Chronic takes baby ASA; continue Follows with Cardiology as an outpatient HTN: Chronic Takes Metoprolol; continue HLD: Chronic takes Simvastatin;holding while on dapto Diet: regular Disposition: PT/OT ordered for further recs Code Status: Full VTE Prophylaxis: Lovenox SQ Admission and Anticipated Discharge Date Admission Date: December 22, 2023 Subjective pt seen in the Am. Was having a nosebleed at that time. States still does not want to do the MRI Notes scab from lower extremity has improved. Review of Systems Review of Systems: All systems reviewed & are unremarkable except as noted in Subjective Physical Exam Physical Exam: General: Alert, oriented. Skin: left leg with improving erythema, scab no longer present Psych: Appropriate mood and affect Neuro: No gross deficits while laying in bed HEENT: NC/AT, nose bleeding, compression device in place on nose CV: RRR Resp: Breath sounds clear bilaterally, no increased effort of breathing. Abdomen: Soft, nontender, nondistended. Extremities: left leg with improving erythema, scab no longer present Results & Data Results & Data Vital Signs (Past 12 Hours) Vital Signs Temp Pulse Pulse Resp BP Pulse Ox O2 Del Method 12/24/23 11:13 36.5 C 81 18 157/85 H 96 Room Air 12/24/23 09:35 78 12/24/23 07:29 36.9 C 84 18 167/85 H 96 Room Air
--- NOTE | 2023-12-24 17:14 | Infectious Disease Consult ---
Date of Service December 24, 2023 Telehealth Information I performed this visit using a real-time telehealth connection between my location and the patients location ([facility]). After connecting through interactive tele-video, patient was identified by name and date of and/or wristband check.Patient (or authorized healthcare airport representative) was informed that this was a telemedicine visit and it was being conducted confidentially over secure lines. My office door was closed and no one else was present in the room with me.Patient (or authorized healthcare airport representative) provided consent to proceed with the visit, expressed an understanding of privacy and security of the telemedicine visit, and gave permission to have a hospital airport representative in the room in order to assist with the visit and to conduct portions of the visit, as needed. I informed the patient (or authorized healthcare airport representative) that I reviewed their record and presented the opportunity for them to ask any questions regarding the visit today. The patient agreed to participate. Assessment & Plan (1) Traumatic open wound of left lower leg with delayed healing: Plan: Patient with MRSA twice from that area in the past few months. Underlying osteomyelitis a concern, though exam shows that the wound appears closed at this time. No fevers or leukocytosis to suggest uncontrolled infection. Plan Consider MRI of extremity. If this shows no concerns with the bone, then she could be converted to linezolid 600mg po bid x 7 more days. If the MRI suggests osteomyelitis, then we will likely need more prolonged IV therapy (6 weeks) plus surgical evaluation. Final abx plans remain pending. History of Present Illness History of Present Illness Ms. Turner is a 68yo female with morbid obesity and chronic LE edema. She had trauma to her left leg back in June from a car door that led to need for debridement in July. Since then she has a chronic wound there that has been slowly improving. She came to the [facility] ED however with a 2 day h/o progressive erythema and edema of the leg. She was started on IV daptomycin due to a h/o MRSA and since then, the leg has improved dramatically. No fevers. No rash, N/V, or diarrhea. at bedside helps provide some of the history. Allergies Allergy/AdvReac Type Severity Reaction Status Date / Time Penicillins Allergy Intermediate ITCHY HIVES Verified 12/22/23 15:47 sulfamethoxazole AdvReac Intermediate GI SYMPTOMS Verified 12/22/23 15:47 trimethoprim AdvReac Intermediate GI SYMPTOMS Verified 12/22/23 15:47 Home Medications Medication Instructions Recorded Confirmed Type ascorbic acid (vitamin C) 500 mg 1,000 mg PO QAM 12/09/19 12/22/23 History tablet (Vitamin C) aspirin 81 mg tablet,delayed 81 mg PO QAM 12/09/19 12/22/23 History release atorvastatin 80 mg tablet 80 mg PO HS 12/09/19 12/22/23 History cholecalciferol (vitamin D3) 25 25 mcg PO QAM 12/09/19 12/22/23 History mcg (1,000 unit) tablet (Vitamin D3) fluticasone propionate 50 1 spray intranasal QAM 12/09/19 12/22/23 History mcg/actuation nasal spray,suspension (Flonase Allergy Relief) loratadine 10 mg tablet (Claritin) 10 mg PO QAM 12/09/19 12/22/23 History nitroglycerin 0.4 mg sublingual 0.4 mg sublingual DIRECTED PRN 12/09/19 12/22/23 History tablet (Nitrostat) Chest Pain zinc gluconate 50 mg tablet 50 mg PO DAILY 06/15/23 12/22/23 History alprazolam 0.25 mg tablet (Xanax) 0.25 mg PO Q24H PRN Anxiety 08/04/23 12/22/23 History lansoprazole 30 mg capsule,delayed 30 mg PO QAM 08/04/23 12/22/23 History release metoprolol tartrate 25 mg tablet 25 mg PO BID 08/04/23 12/22/23 History L.acidop,casei,lactis,rham-B.lact,destin 1 cap PO DAILY #10 caps 08/08/23 12/22/23 Rx 625 mg (10 billion cell) capsule (Advanced Probiotic) Patient History Medical History Pre-diabetes Intramural leiomyoma of uterus Angiolipoma of right kidney Cough OCC/ONGOING/NO CHANGE IN BASELINE Hx of fracture of ankle LT, no sx. History of COVID-19 01/2021, not hospitalized, covid pneumonia, cough Hx of cardiac arrest 2015, f/u Dr. Maynard ([facility]) Surgical History S/P excisional debridement (08/05/23) Excisional Debridement of Left Lower Extremity Wound 12cm x 7cm Down to Muscle/Fascia - Saul Castro DO History of left cataract surgery OCTOBER 2021 Hx of cardiac catheterization w/angioplasty, 2016, blockage 80%, medical management Hx of eye surgery rt. 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 Beliefs That Will Affect Care: None marital status: Current Living Situation: Spouse Current Living Situation Comment: Lives with Cornel Feels Safe at Home: Yes Safety Concerns: Feels Safe At This Time Diet: regular Assistive Devices: Cane, Lift Chair and Walker Review of Systems Gen- No fevers, chills or sweats HEENT- No BERMUDEZ, sore throat Lungs- no SOB or cough CV- No chest pain GI-No N/V or diarrhea - no dysuria MSK- LLE pain and erythema as per HPI Skin- No rash Physical Exam Gen- NAD, cooperative with exam HEENT- NC AT Resp- Normal respiratory rate on room air MSK- LLE erythema and healed wound on anterior calloway Skin- No rash Ext- 2+ LE edema, L>R Neuro -Alert and oriented Results & Data Vital Signs (Past 12 Hours) Vital Signs Temp Pulse Pulse Resp BP Pulse Ox O2 Del Method 12/24/23 11:13 36.5 C 81 18 157/85 H 96 Room Air 12/24/23 09:35 78 12/24/23 07:29 36.9 C 84 18 167/85 H 96 Room Air Laboratory Results WBC 4.78 - > 4.47 Hgb 12.6 Platelets 245 Creatinine 0.73 BUN 10 Na 141 ALT 32 Total bili 0.[address] from 08/04/23 reviewed by me: no osteomyelitis MRSA swab from 10/03/23 and 11/09/23 positive
[2023-12-24] MEDS ORDERED: Nursing to Pharmacy Communication SCH (21:15)
--- NOTE | 2023-12-24 22:47 | Magnetic Resonance Report ---
Exam(s): MRI EXTREMITY Without Contrast EXAM: MR Left Lower Extremity Without Intravenous Contrast CLINICAL HISTORY: Reason for exam: r/o osteomyelitis. TECHNIQUE: Multiplanar magnetic resonance images of the left lower extremity without intravenous contrast. Limited evaluation due to noncontrast technique. COMPARISON: X-ray and CT left lower extremity 08/04/23. FINDINGS: Bones/joints: No marrow edema or findings to suggest osteomyelitis. Soft tissues: Severe superficial cellulitis circumferentially in the calf. No fluid collection. IMPRESSION: 1. Severe superficial cellulitis. 2. No osteomyelitis or abscess. Electronically signed by: Elisha Lentz M.D. 12/24/23 22:46 PM
[2023-12-25 07:47] LABS: Basophils # (auto) 0.02 K/uL (0.00-0.20); Basophils % (auto) 0.4 %; Eosinophils # (auto) 0.23 K/uL (0.00-0.50); Eosinophils % (auto) 4.5 %; Hematocrit (blood only) 37.9 % (37.0-47.0); Hemoglobin 12.5 g/dl (12.0-16.0); Immature Granulocytes # (auto) 0.01 K/uL (0.01-0.20); Immature Granulocytes % (auto) 0.2 %; Lymphocytes # (auto) 1.27 K/uL (1.20-3.40); Lymphocytes % (auto) 24.8 %; Mean Corpuscular Hemoglobin 31.6 pg (25.0-34.0); Mean Corpuscular Volume 95.9 fL (80.0-100.0); Monocytes # (auto) 0.59 K/uL (0.11-0.59); Monocytes % (auto) 11.5 %; Neutrophils % (auto) 58.6 %; Platelet Count 243 K/uL (130-400); RDW Coefficient of Variation 13.5 % (11.5-14.5); RDW Standard Deviation 48.4 fL (36.4-46.3); Red Blood Count 3.95 M/uL (4.20-5.40); White Blood Count 5.12 K/ul (4.8-10.8)
[2023-12-25 08:26] LABS: BUN Creatinine Ratio 14.5 (10-20); Calcium 8.5 mg/dl (8.6-10.3); Est GFR (African American) 108.9 ml/min; Magnesium 1.9 mg/dl (1.7-2.4); Phosphorus 2.7 mg/dl (2.5-4.9); Potassium 3.7 mmol/L (3.5-5.1)
--- NOTE | 2023-12-25 11:04 | Discharge Summary ---
Discharge Summary Date of Service December 25, 2023 Principal Dx & Hospital Course #1 = Principal Diagnosis (1) Cellulitis of left leg: (2) CAD (coronary artery disease): (3) Hypertension: (4) Hyperlipidemia: Plan Ms. Turner is a 68 year old female with PMHx significant for HTN, HLD, anxiety, NSTEMI in 2016 that presents to the ED with worsening redness and itching on her LLE. She has a known LLE s/p trauma (she was getting into her car and she caught her leg on her husbands tool box getting into the car) that occurred in June 2023 and underwent surgical debridement under the care of Dr. Castro on 08/05/23 in [place] and she was started on oral Clindamycin and acetic acid soaks. She was discharged home and her wound continued to bleed. She had arterial duplex studies performed on 09/18/2023. No arterial occlusion or high-grade stenosis identified. LLE cellulitis Chronic wound LLE LLE s/p trauma in Jun 2023. underwent surgical debridement under the care of Dr. Castro on 08/05/23 in [facility] Recently discharged from outpatient wound last week arterial duplex studies performed on 09/18/2023. No arterial occlusion or high- grade stenosis identified. circumferential erythema LLE anterior/posterior calloway She has two outpatient wound cultures: * 10/03/23: Staph MRSA * 11/13: Staph MRSA Completed Oral Clindamycin course and acetic acid soaks No Leukocytosis, no fever Started on Ceftriaxone in ED; switched to IV Dapto (instead of Vanco) given her BMI to cover for MRSA. Does not have any pets. Denies any history of clots or stroke. WOCN order placed who recommends to continue Tubigrip stockings to prevent newly healed wound from opening, follow up wound center prn MRI LLE 1. Severe superficial cellulitis. 2. No osteomyelitis or abscess. Infectious Disease consulted, appreciate recs. Recommended/stated the following: "Patient with MRSA twice from that area in the past few months. Underlying osteomyelitis a concern, though exam shows that the wound appears closed at this time. No fevers or leukocytosis to suggest uncontrolled infection. Plan: Consider MRI of extremity. If this shows no concerns with the bone, then she could be converted to linezolid 600mg po bid x 7 more days. Give Daptomycin today at 12:00 then will discharge to come on 1 week course of linezolid, cost is $31.67 and pt is agreeable Pt with slight increase swelling per Dr. You, will give 20mg IV Lasix and 20meq KCL x 1 now prior to discharge, pt encouraged to elevate lower extremities Epistaxis One episode on 12/23 afrin per protocol, resolved CAD: H/O NSTEMI: Chronic takes baby ASA; continue Follows with Cardiology as an outpatient HTN: Chronic Takes Metoprolol; continue HLD: Chronic takes Simvastatin Notes For Next Care Provider Pt admitted for LLE cellulitis, hx of MRSA. Dramatic Improvement after initiation of IV Daptomycin. She was seen by ID who recommends d/c with linezolid for a week. [facility] She is encouraged to use tubigrip stockings to her newly healed wound. She will need to f/u with wound center as needed for any new wounds. She had slight increase in swelling to lower extremities, please monitor for swelling at follow up appointment. She did get 1 dose of lasix prior to discharge. Medication Changes From Visit Linezolid 600mg by mouth twice daily, starting 12/26/23. Admission HPI Per Admitting Provider Ms. Turner is a 68 year old female that presents to the ED today with worsening redness and itching on her LLE. She has a known LLE s/p trauma (she was getting into her car and she caught her leg on her husbands tool box getting into the car) that occurred in June 2023 and underwent surgical debridement under the care of Dr. Castro on 08/05/23 in [place] and she was started on oral Clindamycin and acetic acid soaks. She was discharged home and her wound continued to bleed. She had arterial duplex studies performed on 09/18/2023. No arterial occlusion or high-grade stenosis identified. She has been following with outpatient wound and was discharged last week. Yesterday she noticed that her leg became more red and warm to touch. She has two outpatient wound cultures: * 10/03/23: Staph MRSA * 11/13: Staph MRSA Additional PMH includes HTN, HLD and anxiety. She does report having an NSTEMI in 2016. Follows with Cardiology as an outpatient; next appointment is 2015. Does not have any pets. Denies any history of clots or stroke. No leukocytosis, and otherwise labs unremarkable. Patient will be admitted for further evaluation and management for her LLE cellulitis. Please see A/P for further details. Admission Exam Per Admitting Provider Physical Exam Physical Exam: Neuro: AAOx4, PERRLA, no aphagia, memory changes, CNII-XII grossly intact HEENT: head normocephalic, moist mucus membranes CV: S1/S2, (-) M/G/R, (-) edema, cap refill < 3 seconds Resp: Lungs CTA in all ibarra. On RA GI: Abdomen S/NT/ND, Ax4 bowel sounds, (-) CVA tenderness Musculoskeletal: 5/5 B/L UE strength, 5/5 B/L LE strength. No gait disturbance Skin: (-) rashes , (+) circumfrencial erythema LLE posterior and anterior calf. Anterior dime-sized wound that is healed. Psych: euthymic mood Discharge Exam Gen: WD/WN, sitting up in bedside chair, ambulating around avery, NAD, A&O x3 HEENT: Normocephalic, atraumatic, conjunctivae moist, sclerae anicteric, mucous membranes moist. Lung: Clear to Auscultation bilaterally, no wheezes/rales/rhonchi Heart: Regular rate, regular rhythm, no murmurs, rubs, or gallops Abdomen: Soft, NT, ND +BS x 4 Extremities: chronic nonpitting lower extremity edema with chronic venous stasis change L > R, no open wounds, area of erythema that was marked with a skin marker has since resolved, no warmth. Skin: Warm, no rash, negative turgor. Updated Medication List Medication Instructions Recorded Confirmed Type ascorbic acid (vitamin C) 500 mg 1,000 mg PO QAM 12/09/19 12/22/23 History tablet (Vitamin C) aspirin 81 mg tablet,delayed 81 mg PO QAM 12/09/19 12/22/23 History release atorvastatin 80 mg tablet 80 mg PO 12/09/19 12/22/23 History cholecalciferol (vitamin D3) 25 25 mcg PO QAM 12/09/19 12/22/23 History mcg (1,000 unit) tablet (Vitamin D3) fluticasone propionate 50 1 spray intranasal QA 12/09/19 12/22/23 History mcg/actuation nasal spray,suspension (Flonase Allergy Relief) loratadine 10 mg tablet (Claritin) 10 mg PO QAM 12/09/19 12/22/23 History nitroglycerin 0.4 mg sublingual 0.4 mg sublingual DIRECTED PRN 12/09/19 12/22/23 History tablet (Nitrostat) Chest Pain zinc gluconate 50 mg tablet 50 mg PO DAILY 06/15/23 12/22/23 History alprazolam 0.25 mg tablet (Xanax) 0.25 mg PO Q24H PRN Anxiety 08/04/23 12/22/23 History lansoprazole 30 mg capsule,delayed 30 mg PO QAM 08/04/23 12/22/23 History release metoprolol tartrate 25 mg tablet 25 mg PO BID 08/04/23 12/22/23 History L.acidop,casei,lactis,rham-B.lact,destin 1 cap PO DAILY #10 caps 08/08/23 12/22/23 Rx 625 mg (10 billion cell) capsule (Advanced Probiotic) linezolid 600 mg tablet (Zyvox) 600 mg PO BID #14 tabs 12/25/23 Rx Hospital Stay Data Consultations 12/22/23 15:36 ED Decision to Admit Stat 12/23/23 11:45 Consult Infectious Diseases Routine Diagnostic Imagining Performed Lower Extremity MRI 12/24/23 19:00 Exam(s): MRI EXTREMITY Without Contrast EXAM: MR Left Lower Extremity Without Intravenous Contrast CLINICAL HISTORY: Reason for exam: r/o osteomyelitis. TECHNIQUE: Multiplanar magnetic resonance images of the left lower extremity without intravenous contrast. Limited evaluation due to noncontrast technique. COMPARISON: X-ray and CT left lower extremity 08/04/23. FINDINGS: Bones/joints: No marrow edema or findings to suggest osteomyelitis. Soft tissues: Severe superficial cellulitis circumferentially in the calf. No fluid collection. IMPRESSION: 1. Severe superficial cellulitis. 2. No osteomyelitis or abscess. Electronically signed by: Elisha Lentz M.D. 12/24/23 22:46 PM Pending Results Patient Have Any Pending Studies at Discharge: No Discharge Instructions Given to Patient (Per Discharging Provider) MEDICATION CHANGES: Linezolid 600mg by mouth twice daily for additional 7 days. Next dose is due in the morning on 12/26/23. Please continue all other medications as prescribed. SUMMARY OF TEST RESULTS: You were admitted to the hospital for infection of your left leg. You underwent an MRI of the Left leg and it was negative for infection in the bone. You were seen and evaluated by an infectious disease Doctor who recommends you continue antibiotics for additional 1 week. Your last dose of IV antibiotic was prior to discharge on 12/25/23. PENDING TEST RESULTS: None RECOMMENDATIONS FOR FOLLOW-UP: Please follow up with primary care provider as prescribed. It is recommended that you wear double layer tubigrips to lower extremities due to your newly healed wound. Please follow up with wound care center as needed in future for any new wounds. Keep lower extremities elevated when seated. Please complete antibiotic in its entirety. It is recommended that you take a daily probiotic while you are on antibiotics. You informed me that you take one on a daily basis. OTHER INSTRUCTIONS: Seek medical attention if you have: * temperature above 101 * chest pain or trouble breathing * abdominal pain, nausea, vomiting * diarrhea, dark stools or bloody stools * any unanswered questions or concerns Call 911 if symptoms are severe. Please take good care of yourself. It has been a pleasure taking care of you. Please take care of yourself. If you have any questions regarding your recent hospitalization please contact [facility] and request avi Santoist @ [phone]. Anne Marie Plummer PA-C Total Time Total Time Spent Total Time Spent (In Minutes): 45 minutes Supervising Physician Co-Signing Physician Notes Pt was seen and examined by myself, Addie Elizabeth MD on the day of service. Care was coordinated with Anne Marie Plummer PA-C. 68yoF treated for recurrent cellulitis of LLE. Was finally agreeable to MRI, which noted severe cellulitis but no osteomyleitis. On exam today noted swelling with start of bullae formation IV Lasix one dose Discharge with Linezolid per ID recs for 7 days. Pt advised to use her home lasix. Close PCP followup. Otherwise as above. I spent a total [id number] coordinating, documenting, and providing care for this patient excluding time spent in the performance of separately billed services
[2023-12-25] MEDS: POTASSIUM CHLORIDE CRTAB 20 MEQ TABCR PO STA (12:40)
[2023-12-25] MEDS: FUROSEMIDE INJ 20 MG/2 ML VIAL IV ONE (12:40)
[2023-12-25] MEDS: DAPTOmycin 300 MG in SYRINGE 0 ML IV SCH (12:40)
== END 2023-12-25 14:23 | disposition home or self-care (01) | DRG 603 ==
LOC: ED 12:03 → EDINP 18:21 → SUATTDRO 18:21 → 2W 18:39